=== PATIENT | male | born 1955 | race African-American/Black ===

== ENCOUNTER 2021-06-25 18:40 | Inpatient (IN) | payer MEDICARE ==
[~2021-06-25] VITALS: Ht 172.7 cm; Wt 68.0 kg
[2021-06-25] MEDS ORDERED: MAG HYDROX/AL HYDROX/SIMETH 30 ML ORAL.SUSP PO PRN (20:15)
[2021-06-25] MEDS ORDERED: METHYL SALICYLATE/MENTHOL TOPICAL OINTMENT 57GM TUBE. TP PRN (20:15)
[2021-06-25] MEDS ORDERED: MAGNESIUM HYDROXIDE 2,400 MG/30 ML ORAL.SUSP. PO PRN (20:15)
[2021-06-25 20:29] VITALS: BP 120/83
[2021-06-25] MEDS ORDERED: ALEN70TA71 PO (20:35)
[2021-06-25] MEDS ORDERED: AMLO-186 PO (20:38)
[2021-06-25] MEDS ORDERED: ATOR10TA60 PO (20:50)
[2021-06-25] MEDS ORDERED: CALC-157 PO (20:50)
[2021-06-25] MEDS ORDERED: CARB15DR25 OP (20:50)
[2021-06-25] MEDS ORDERED: BUPR150T21 PO (20:50)
[2021-06-25] MEDS ORDERED: BENZ1TAB5 PO (20:50)
[2021-06-25] MEDS ORDERED: CARB1DRO OP (20:50)
[2021-06-25] MEDS: NICOTINE 14MG PATCH. TD SCH (21:00)
[2021-06-25] MEDS ORDERED: GUAI400T78 PO (21:40)
[2021-06-25] MEDS ORDERED: TRIA15OI32 TP (21:40)
[2021-06-25] MEDS ORDERED: MEMA5TAB PO (21:40)
[2021-06-25] MEDS ORDERED: FLUP1TAB3 PO (21:40)
[2021-06-25] MEDS ORDERED: OMEP40CA7 PO (21:40)
[2021-06-25] MEDS ORDERED: DIVA500T17 PO (21:40)
[2021-06-25] MEDS ORDERED: CETI10TA16 PO (21:40)
[2021-06-25] MEDS ORDERED: MIRT-37 PO (21:40)
[2021-06-25] MEDS ORDERED: TRAZ-120 PO (21:40)
[2021-06-25] MEDS ORDERED: DONE10TA7 PO (21:40)
[2021-06-25] MEDS ORDERED: CYCL10TA19 PO (21:40)
[2021-06-25] MEDS ORDERED: PALI156D IM (21:40)
[2021-06-25] MEDS ORDERED: RISP0.5T62 PO (21:40)
[2021-06-25] MEDS ORDERED: CLOB15OI TP (21:40)
[2021-06-25] MEDS ORDERED: MICO142C TP (21:40)
[2021-06-25 22:06] LABS: ALBUMIN/GLOBULIN RATIO 0.7 (1.0-1.7); ALK PHOS 74 U/L (46-116); ALT (SGPT) 26 U/L (16-63); ANION GAP 7 (6-14); AST (SGOT) 18 U/L (15-37); BASO % 0 % (0-3); BLOOD UREA NITROGEN 9 mg/dL (8-26); BUN/CREATININE RATIO 11 (6-20); CARBON DIOXIDE 29 mmol/L (21-32); CHLORIDE 98 mmol/L (98-107); CREATININE 0.8 mg/dL (0.7-1.3); EOS # 0.1 x10^3/uL (0.0-0.7); EOS % 1 % (0-3); GFR 117.4; GLUCOSE 93 mg/dL (70-99); HEMATOCRIT 39.7 % (39.0-53.0); HEMOGLOBIN 12.7 g/dL (13.0-17.5); LYMPH # 2.8 x10^3/uL (1.0-4.8); LYMPH % 33 % (24-48); MEAN CORPUSCULAR HEMOGLOBIN 28 pg (25-35); MEAN CORPUSCULAR HGB CONC 32 g/dL (31-37); MEAN CORPUSCULAR VOLUME 88 fL (79-100); MONO # 1.1 x10^3/uL (0.0-1.1); MONO % 13 % (0-9); NEUT # 4.5 x10^3uL (1.8-7.7); NEUT % 53 % (31-73); PLATELET COUNT 216 x10^3/uL (140-400); RED BLOOD COUNT 4.52 x10^6/uL (4.30-5.70); RED CELL DISTRIBUTION WIDTH 14.3 % (11.5-14.5); SODIUM 134 mmol/L (136-145); TOTAL BILIRUBIN 0.3 mg/dL (0.2-1.0); TOTAL PROTEIN 7.3 g/dL (6.4-8.2); WHITE BLOOD COUNT 8.5 x10^3/uL (4.0-11.0)
[2021-06-25 22:07] LABS: VAL ACID 30 mcg/mL (50-100)
--- NOTE | 2021-06-25 22:17 | PDOC ---
Exam Note: Bj Note: Please also refer to the separate dictated note~for this date of service dictated separately.~Patient seen individually. Discussed the patient with Nursing staff reviewed the chart.~Reviewed interim history and current functioning. Reviewed vital signs,~Labs/ Radiology~and current medications noted below. Continue current treatment with the changes noted in the dictated addendum note Assessment: Vital Signs/I&O: Vital Signs Date Time Temp Pulse Resp B/P (MAP) Pulse Ox O2 Delivery O2 Flow Rate FiO2 06/25/21 20:29 97.6 83 18 120/83 (95) 98 Labs: Laboratory Tests Test 06/25/21 21:44 White Blood Count 8.5 x10^3/uL (4.0-11.0) Red Blood Count 4.52 x10^6/uL (4.30-5.70) Hemoglobin 12.7 g/dL (13.0-17.5) L Hematocrit 39.7 % (39.0-53.0) Mean Corpuscular Volume 88 fL (79-100) Mean Corpuscular Hemoglobin 28 pg (25-35) Mean Corpuscular Hemoglobin Concent 32 g/dL (31-37) Red Cell Distribution Width 14.3 % (11.5-14.5) Platelet Count 216 x10^3/uL (140-400) Neutrophils (%) (Auto) 53 % (31-73) Lymphocytes (%) (Auto) 33 % (24-48) Monocytes (%) (Auto) 13 % (0-9) H Eosinophils (%) (Auto) 1 % (0-3) Basophils (%) (Auto) 0 % (0-3) Neutrophils # (Auto) 4.5 x10^3uL (1.8-7.7) Lymphocytes # (Auto) 2.8 x10^3/uL (1.0-4.8) Monocytes # (Auto) 1.1 x10^3/uL (0.0-1.1) Eosinophils # (Auto) 0.1 x10^3/uL (0.0-0.7) Basophils # (Auto) 0.0 x10^3/uL (0.0-0.2) D-Dimer (Linda) 0.97 mg/L (0.00-0.50) H Sodium Level 134 mmol/L (136-145) L Potassium Level 4.0 mmol/L (3.5-5.1) Chloride Level 98 mmol/L (98-107) Carbon Dioxide Level 29 mmol/L (21-32) Anion Gap 7 (6-14) Blood Urea Nitrogen 9 mg/dL (8-26) Creatinine 0.8 mg/dL (0.7-1.3) Estimated GFR (Cockcroft-Gault) 117.4 BUN/Creatinine Ratio 11 (6-20) Glucose Level 93 mg/dL (70-99) Calcium Level 9.0 mg/dL (8.5-10.1) Magnesium Level 2.0 mg/dL (1.8-2.4) Total Bilirubin 0.3 mg/dL (0.2-1.0) Aspartate Amino Transferase (AST) 18 U/L (15-37) Alanine Aminotransferase (ALT) 26 U/L (16-63) Alkaline Phosphatase 74 U/L (46-116) Total Protein 7.3 g/dL (6.4-8.2) Albumin 3.0 g/dL (3.4-5.0) L Albumin/Globulin Ratio 0.7 (1.0-1.7) L Valproic Acid Level 30 mcg/mL (50-100) L Valproic Acid Last Dose Date 06/25/2021 Valproic Acid Last Dose Time 2200 Current Medications: I have reviewed the current psychotropics carefully including drug interactions. Risk benefit ratio favors no change other than as noted in my dictated progress note. JOHANNE LEONARDO MD Jun 25, 2021 22:17
[2021-06-26 00:05] LABS: CLARITY,URINE CLEAR; COLOR,URINE YELLOW; GLUCOSE,URINE NEG (NEG)
[2021-06-26 00:06] LABS: BACTERIA,URINE FEW /HPF (0-FEW); NITRITE,URINE NEG (NEG); RBC,URINE 0 /HPF (0-2); SQUAMOUS EPITHELIAL CELL,UR OCC /LPF; UROBILINOGEN,URINE 0.2 mg/dL (0.2 mg/dL)
[2021-06-26 06:23] VITALS: BP 148/56
[2021-06-26] MEDS: buPROPion XL 150 MG TAB.ER.24H PO SCH (08:17)
[2021-06-26] MEDS: NICOTINE 14MG PATCH. TD SCH (08:17)
[2021-06-26] MEDS: MEMANTINE 5 MG TABLET. PO SCH (08:17)
[2021-06-26] MEDS: DONEPEZIL HCL 10 MG TABLET PO SCH (08:17)
[2021-06-26] MEDS: ACETAMINOPHEN 325 MG TABLET PO PRN (09:55)
[2021-06-26 13:10] LABS: THYROXINE 7.2 ug/dL (4.5-12.0)
[2021-06-26] MEDS: ONDANSETRON ODT 4 MG TAB.RAPDIS PO PRN (15:20)
[2021-06-26 15:47] VITALS: BP 124/85
[2021-06-26 17:14] VITALS: BP 124/85
--- NOTE | 2021-06-26 17:20 | RAD ---
EXAMINATION: Bilateral feet radiograph. VIEWS: 4 COMPARISON: None INDICATION:66 years, Male, pain and swelling. FINDINGS: No acute fracture, dislocation or subluxation. Chronic appearing fractures at the base of bilateral f irst distal phalanges. Chronic resorption of the left fifth distal phalanx. Diffuse soft tissue swell ing about the left foot . IMPRESSION: No acute osseous process. Electronically signed by: Marychuy Dominguez MD (06/26/2021 5:18 PM) [id number]
[2021-06-26] MEDS: traZODone 50 MG TABLET. PO SCH (20:47)
[2021-06-26] MEDS: MIRTAZAPINE 15 MG TABLET PO SCH (20:47)
[2021-06-26] MEDS: BENZTROPINE MESYLATE 1 MG TABLET PO SCH (20:50)
[2021-06-26 20:55] LABS: CHOLESTEROL/HDL RATIO 2.1; THYROID STIM HORMONE (TSH) 1.915 uIU/mL (0.358-3.740)
[2021-06-26] MEDS ORDERED: DIVALPROEX ER 500 MG TAB.ER.24H PO SCH (21:00)
--- NOTE | 2021-06-26 22:15 | PDOC ---
Exam Note: Bj Note: Please also refer to the separate dictated note~for this date of service dictated separately.~Patient seen individually. Discussed the patient with Nursing staff reviewed the chart.~Reviewed interim history and current functioning. Reviewed vital signs,~Labs/ Radiology~and current medications noted below. Continue current treatment with the changes noted in the dictated addendum note Assessment: Vital Signs/I&O: Vital Signs Date Time Temp Pulse Resp B/P (MAP) Pulse Ox O2 Delivery O2 Flow Rate FiO2 06/26/21 17:14 97.7 88 18 124/85 (98) 99 06/26/21 15:47 Room Air I & O 06/25/21 06/25/21 06/26/21 15:00 23:00 07:00 Intake Total 560 ml Balance 560 ml Labs: Laboratory Tests Test 06/25/21 23:00 Urine Collection Type Unknown Urine Color Yellow Urine Clarity Clear Urine pH 6.0 Urine Specific [place] 1.015 Urine Protein Neg (NEG-TRACE) Urine Glucose (UA) Neg mg/dL (NEG) Urine Ketones (Stick) Neg mg/dL (NEG) Urine Blood Neg (NEG) Urine Nitrite Neg (NEG) Urine Bilirubin Neg (NEG) Urine Urobilinogen Dipstick 0.2 mg/dL (0.2 mg/dL) Urine Leukocyte Esterase Neg (NEG) Urine RBC 0 /HPF (0-2) Urine WBC 1-4 /HPF (0-4) Urine Squamous Epithelial Cells Occ /LPF Urine Bacteria Few /HPF (0-FEW) Current Medications: Meds: Laboratory Tests Test 06/25/21 23:00 Urine Collection Type Unknown Urine Color Yellow Urine Clarity Clear Urine pH 6.0 Urine Specific [place] 1.015 Urine Protein Neg Urine Glucose (UA) Neg mg/dL Urine Ketones (Stick) Neg mg/dL Urine Blood Neg Urine Nitrite Neg Urine Bilirubin Neg Urine Urobilinogen Dipstick 0.2 mg/dL Urine Leukocyte Esterase Neg Urine RBC 0 /HPF Urine WBC 1-4 /HPF Urine Squamous Epithelial Cells Occ /LPF Urine Bacteria Few /HPF Current Medications Medications (Trade) Dose Ordered Sig/Reny Route PRN Reason Start Time Stop Time Status Last Admin Dose Admin Acetaminophen (Tylenol) 650 mg PRN Q6HRS PRN PO MILD PAIN / TEMP > 100.3'F 06/25/21 20:15 06/26/21 09:55 Multi-Ingredient Ointment (Analgesic [place]) 1 mikhail PRN QID PRN TP MUSCLE PAIN 06/25/21 20:15 Al Hydroxide/Mg Hydroxide (Mylanta Plus Xs) 15 ml PRN AFTMEALHC PRN PO DYSPEPSIA 06/25/21 20:15 Magnesium Hydroxide (Milk Of Magnesia) 2,400 mg PRN QHS PRN PO CONSTIPATION 06/25/21 20:15 Nicotine (Nicoderm Cq 14mg Patch) 1 patch DAILY TD 06/25/21 21:00 06/26/21 08:17 Benztropine Mesylate (Cogentin) 1 mg BID PO 06/26/21 22:00 06/26/21 20:50 Bupropion HCl (Wellbutrin Xl) 150 mg DAILY PO 06/26/21 09:00 06/26/21 08:17 Divalproex Sodium (Depakote Er) 500 mg HS PO 06/26/21 21:00 06/26/21 20:47 Donepezil HCl (Aricept) 10 mg DAILY PO 06/26/21 09:00 06/26/21 08:17 Memantine (Namenda) 5 mg DAILY PO 06/26/21 09:00 06/26/21 08:17 Mirtazapine (Remeron) 7.5 mg QHS PO 06/26/21 21:00 06/26/21 20:47 Paliperidone Palmitate (Invega Sustenna) 156 mg QMONTH IM 07/25/21 09:00 UNV Risperidone (RisperDAL) 0.25 mg PRN DAILY PRN PO agitation 06/25/21 22:00 Trazodone HCl (Desyrel) 50 mg QHS PO 06/26/21 21:00 06/26/21 20:47 Fluphenazine HCl (Prolixin Oral Conc) 1 mg PRN BID PRN PO psychosis 06/25/21 22:15 Ondansetron HCl (Zofran Odt) 4 mg PRN Q6HRS PRN PO NAUSEA/VOMITING 06/26/21 14:00 06/26/21 15:20 Current Medications Medications (Trade) Dose Ordered Sig/Reny Route PRN Reason Start Time Stop Time Status Last Admin Dose Admin Benztropine Mesylate (Cogentin) 1 mg BID PO 3/31/22 22:00 06/26/21 20:50 Bupropion HCl (Wellbutrin Xl) 150 mg DAILY PO 06/26/21 09:00 06/26/21 08:17 Divalproex Sodium (Depakote Er) 500 mg HS PO 06/26/21 21:00 06/26/21 20:47 Donepezil HCl (Aricept) 10 mg DAILY PO 06/26/21 09:00 06/26/21 08:17 Memantine (Namenda) 5 mg DAILY PO 06/26/21 09:00 06/26/21 08:17 Mirtazapine (Remeron) 7.5 mg QHS PO 06/26/21 21:00 06/26/21 20:47 Trazodone HCl (Desyrel) 50 mg QHS PO 06/26/21 21:00 06/26/21 20:47 Ondansetron HCl (Zofran Odt) 4 mg PRN Q6HRS PRN PO NAUSEA/VOMITING 06/26/21 14:00 06/26/21 15:20 I have reviewed the current psychotropics carefully including drug interactions. Risk benefit ratio favors no change other than as noted in my dictated progress note. JOHANNE LEONARDO MD Jun 26, 2021 22:14
[2021-06-27 00:16] LABS: HEMOGLOBIN A1C 5.8 % (4.8-5.6)
--- NOTE | 2021-06-27 03:19 | CONS ---
DATE OF CONSULTATION: 06/26/2021 ATTENDING PHYSICIAN: Dr. Leonardo, Dr. Guerrier. We are asked to see this patient for medical consultation. HISTORY OF PRESENT ILLNESS: The patient is 66. He has a longstanding history of schizoaffective disorder. He lives in a facility in [place], [place]. He goes to the [facility]. He was sent here from the ID system with significant dementia, schizoaffective disorder, very hard of hearing. He has had a history of seizures, hypertension, COPD, supposedly syphilis neuropathy. He is followed at the [facility]. His main complaint today, he is complaining of pain in his left foot. He is very simplistic and hard of hearing. I suspect he is mentally challenged. CURRENT MEDICATIONS: Reviewed. ALLERGIES: He has no known drug allergies. He was on scheduled alendronate, amlodipine, Lipitor, benztropine, bupropion, calcium carbonate, carboxymethylcellulose eyedrops, cetirizine, topical steroids, clobetasol, Flexeril p.r.n., Depakote, Aricept, fluphenazine, guaifenesin, Namenda, miconazole, Remeron, omeprazole, Invega, risperidone, trazodone, and triamcinolone. SOCIAL HISTORY: He was a smoker in the past. No current alcohol use. FAMILY HISTORY: Unobtainable. REVIEW OF SYSTEMS: He is very simplistic in his thought process. He is very hard of hearing, has trouble communicating. He has complained of feeling nauseated, very vague symptoms. He has complained of pain in both feet, worse in the left foot. No recent history of trauma. All other systems reviewed and turned to be negative. PHYSICAL EXAMINATION: GENERAL: When I saw him, this is a pleasant, middle-aged gentleman, in no acute distress. VITAL SIGNS: Initial vital signs showed a blood pressure of 120/83 mmHg. His pulse is 83 and regular, temperature 97.6 degrees Fahrenheit and his oxygen saturations are 98% on room air. HEENT: Head is without trauma. Pupils are reactive. Sclerae are nonicteric. The oropharynx is clear. NECK: Supple, no bruits. LUNGS: Good breath sounds. CARDIOVASCULAR: Showed regular heart tones. No gallop. ABDOMEN: Soft. EXTREMITIES: Without edema. NEUROLOGIC: Focally intact. Speech is fluent, very hard of hearing. PERTINENT LABORATORY STUDIES: His hemoglobin is 12.7 grams/dL, white count is 8500. Chemistry panel showed a sodium 134 mEq, potassium 4.0, and creatinine 0.8 mg/dL. Transaminases are normal. Urinalysis was unremarkable. ASSESSMENT: 1. This 66-year-old gentleman has schizoaffective disorder. 2. Underlying dementia with behavioral issues. 3. He is mentally challenged based on my exam. 4. Presbycusis, very hard of hearing. 5. Underlying schizoaffective disorder. 6. Degenerative arthritis of both feet. RECOMMENDATIONS: 1. Because of these symptoms are complained, I would recommend getting plain films of both feet just to document a baseline. I do not believe any fractures are identified. There are no findings of trauma. 2. I have reviewed his home meds and these should be continued at the same dosage. 3. He is stable from a medical standpoint. Thank you again for asking me to see this patient for medical consultation. We shall gladly follow along during his inpatient stay. JESSICA/NICKIE DR: JESSICA/domenico TID: [id number] CC: JOHANNE LEONARDO MD
[2021-06-27 06:32] VITALS: BP 150/94
[2021-06-27] MEDS: buPROPion XL 150 MG TAB.ER.24H PO SCH (09:18)
[2021-06-27] MEDS: MEMANTINE 5 MG TABLET. PO SCH (09:18)
[2021-06-27] MEDS: DONEPEZIL HCL 10 MG TABLET PO SCH (09:18)
[2021-06-27] MEDS: BENZTROPINE MESYLATE 1 MG TABLET PO SCH ×2 (09:18→21:17)
[2021-06-27] MEDS: NICOTINE 14MG PATCH. TD SCH (09:19)
[2021-06-27] MEDS: ACETAMINOPHEN 325 MG TABLET PO PRN (10:00)
[2021-06-27] MEDS ORDERED: TRIAMCINOLONE ACETONIDE 0.1% TOPICAL OINTMENT 15GM TUBE. TP PRN (10:45)
[2021-06-27] MEDS ORDERED: CARBOXYMETHYLCELLULOSE SODIUM OP SCH (13:00)
--- NOTE | 2021-06-27 13:19 | HP ---
DATE OF SERVICE: 06/27/2021 ADMIT DATE: 06/25/2021 PSYCHIATRIC ADMISSION HISTORY/EVALUATION IDENTIFYING DATA: The patient is a 66-year-old -Russian male referred to us from [facility] via the [facility] where he presented from the care home for increasing aggression with peers, increased confusion, acute mental status changes, paranoia, combative with staff and peers. He was hitting angry, attempting to elope, delusional about having AIDS, making verbal threats to staff members. He is quite hard of hearing and this lack of communication/impaired communication worsens his impulsivity, aggression. He had failed outpatient psychiatric interventions. I discussed with Jeri Foster, in school suspension coordinator and nursing staff, and reviewed current and past records and information from the [facility]. I met with him evening of 06/26. CHIEF COMPLAINT: "I came here yesterday. Yes, I get upset." The patient was extremely hard of hearing, I had to talk extremely loudly. He was getting frustrated with communication problems. HISTORY OF PRESENT ILLNESS: Reportedly, the patient has a long history of schizoaffective disorder, bipolar type. He is on Invega Sustenna 156 mg IM monthly, in addition to Risperdal. He has been at the above care home for some time, recently getting more paranoid with marked mood lability, agitation and aggression, disruptive behaviors. No active suicidal or homicidal ideation. PAST PSYCHIATRIC HISTORY: As above. MEDICAL HISTORY: Hard of hearing, obesity, seizure disorder, hypertension, status post COPD, obstructive sleep apnea, chronic constipation, GERD, status post CVA, peripheral vascular disease, syphilis, positive neuropathy and he is a current smoker. ALLERGIES: Negative. CODE STATUS: DNR. ACCU-CHEKS: None. DIET: Regular. Takes medications whole. Ambulates independently. CURRENT PSYCHOTROPICS: Cogentin 1 mg b.i.d., Aricept 10 mg a day, Prolixin 1 mg b.i.d. p.r.n., Invega Sustenna 156 mg monthly, Remeron 7.5 mg at bedtime, Risperdal 0.25 mg daily p.r.n., trazodone 50 mg at bedtime, Namenda 5 mg a day and Wellbutrin-XL 150 mg a day. FAMILY HISTORY: Noncontributory. SOCIAL HISTORY: No alcohol, drug abuse, physical, sexual, elder abuse history is noted. He is not known to be a perpetrator. REACTION TO HOSPITALIZATION: The patient accepting of it. MENTAL STATUS EXAM: The patient is awake, alert, oriented. He knew it was 06/26/2021. He knew he was admitted the day before, but did not know the name of the current president or the one before him. I had to talk very loudly to communicate with him. Speech is coherent. Abstraction fair. Computation impaired. Language function intact. Attention span short. Mood and affect remains labile, somewhat paranoid and distractable. LABORATORY DATA: Reviewed. IMPRESSION: Schizoaffective disorder, bipolar type, mixed, with psychotic features; mild cognitive impairment versus dementia, Alzheimer, vascular with delusion; depression, impulse control disorder and anxiety disorder, unspecified. Rest as above. PLAN: Admit to Geropsychiatry unit at [facility]. I will see the patient daily individually from a psychiatric standpoint, medical followup with Dr. Ann/Dr. Guerrier. Continue the patient on current psychotropics, start Depakote as a mood stabilizer, adjust to reach therapeutic level. Follow labs as we do this. ESTIMATED LENGTH OF STAY: 10-12 days. DISPOSITION PLANS: Back to care home when stable. ROBERTA/NICANOR DR: Donis TID: [id number]
[2021-06-27 16:10] VITALS: BP 150/92
[2021-06-27] MEDS ORDERED: CLOBETASOL EMOLLIENT 0.05% TOPICAL CREAM 15GM TUBE. TP PRN (21:00)
[2021-06-27] MEDS: traZODone 50 MG TABLET. PO SCH (21:17)
[2021-06-27] MEDS: MIRTAZAPINE 15 MG TABLET PO SCH (21:17)
[2021-06-27] MEDS: ATORVASTATIN CALCIUM 10 MG TABLET. PO SCH (21:17)
[2021-06-27] MEDS: DIVALPROEX ER 500 MG TAB.ER.24H PO SCH (21:18)
--- NOTE | 2021-06-27 22:20 | PDOC ---
Exam Note: Bj Note: Please also refer to the separate dictated note~for this date of service dictated separately.~Patient seen individually. Discussed the patient with Nursing staff reviewed the chart.~Reviewed interim history and current functioning. Reviewed vital signs,~Labs/ Radiology~and current medications noted below. Continue current treatment with the changes noted in the dictated addendum note Assessment: Vital Signs/I&O: Vital Signs Date Time Temp Pulse Resp B/P (MAP) Pulse Ox O2 Delivery O2 Flow Rate FiO2 06/27/21 16:10 97.4 83 20 150/92 (111) 99 06/27/21 06:32 Room Air I & O 06/26/21 06/26/21 06/27/21 15:00 23:00 07:00 Intake Total 960 ml 960 ml Balance 960 ml 960 ml Current Medications: Meds: Current Medications Medications (Trade) Dose Ordered Sig/Reny Route PRN Reason Start Time Stop Time Status Last Admin Dose Admin Acetaminophen (Tylenol) 650 mg PRN Q6HRS PRN PO MILD PAIN / TEMP > 100.3'F 06/25/21 20:15 06/27/21 10:00 Multi-Ingredient Ointment (Analgesic [place]) 1 mikhail PRN QID PRN TP MUSCLE PAIN 06/25/21 20:15 Al Hydroxide/Mg Hydroxide (Mylanta Plus Xs) 15 ml PRN AFTMEALHC PRN PO DYSPEPSIA 06/25/21 20:15 Magnesium Hydroxide (Milk Of Magnesia) 2,400 mg PRN QHS PRN PO CONSTIPATION 06/25/21 20:15 Nicotine (Nicoderm Cq 14mg Patch) 1 patch DAILY TD 06/25/21 21:00 06/27/21 09:19 Benztropine Mesylate (Cogentin) 1 mg BID PO 06/26/21 22:00 06/27/21 21:17 Bupropion HCl (Wellbutrin Xl) 150 mg DAILY PO 06/26/21 09:00 06/27/21 09:18 Divalproex Sodium (Depakote Er) 500 mg HS PO 06/26/21 21:00 06/27/21 18:00 DC 06/26/21 20:47 Donepezil HCl (Aricept) 10 mg DAILY PO 06/26/21 09:00 06/27/21 09:18 Memantine (Namenda) 5 mg DAILY PO 06/26/21 09:00 06/27/21 09:18 Mirtazapine (Remeron) 7.5 mg QHS PO 06/26/21 21:00 06/27/21 21:17 Paliperidone Palmitate (Invega Sustenna) 156 mg QMONTH IM 07/25/21 09:00 Risperidone (RisperDAL) 0.25 mg PRN DAILY PRN PO agitation 06/25/21 22:00 Trazodone HCl (Desyrel) 50 mg QHS PO 06/26/21 21:00 06/27/21 21:17 Fluphenazine HCl (Prolixin Oral Conc) 1 mg PRN BID PRN PO psychosis 06/25/21 22:15 Ondansetron HCl (Zofran Odt) 4 mg PRN Q6HRS PRN PO NAUSEA/VOMITING 06/26/21 14:00 06/26/21 15:20 Amlodipine Besylate (Norvasc) 2.5 mg DAILY PO 06/28/21 09:00 Atorvastatin Calcium (Lipitor) 10 mg QHS PO 06/27/21 21:00 06/27/21 21:17 Triamcinolone Acetonide (Kenalog) 1 mikhail PRN DAILY PRN TP rash in armpits 06/27/21 10:45 Artificial Tears (Refresh Classic) 1 drop QIDPRN PRN OU DRY EYE 06/27/21 11:00 Non-Formulary Medication (Carboxymethylcellulose Sodium (Lubricant Eye Drops)) 15 ml QID OP 06/27/21 13:00 06/27/21 10:50 DC Clobetasol Propionate 1 mikhail PRN BID PRN TP RASH 06/27/21 21:00 Pantoprazole Sodium (Protonix) 40 mg DAILY07 PO 06/28/21 07:00 Divalproex Sodium (Depakote Er) 1,000 mg HS PO 06/27/21 21:00 06/27/21 21:18 Current Medications Medications (Trade) Dose Ordered Sig/Reny Route PRN Reason Start Time Stop Time Status Last Admin Dose Admin Atorvastatin Calcium (Lipitor) 10 mg QHS PO 06/27/21 21:00 06/27/21 21:17 Divalproex Sodium (Depakote Er) 1,000 mg HS PO 06/27/21 21:00 06/27/21 21:18 I have reviewed the current psychotropics carefully including drug interactions. Risk benefit ratio favors no change other than as noted in my dictated progress note. Diagnosis: Problems: (1) Schizoaffective disorder, bipolar type (2) Bipolar disorder, current episode mixed, severe, with psychotic features (3) Anxiety disorder, unspecified (4) Impulse control disorder, unspecified JOHANNE LEONARDO MD Jun 27, 2021 22:20
[2021-06-28 06:19] VITALS: BP 119/81
[2021-06-28] MEDS: MEMANTINE 5 MG TABLET. PO SCH (07:58)
[2021-06-28] MEDS: DONEPEZIL HCL 10 MG TABLET PO SCH (07:58)
[2021-06-28] MEDS: PANTOPRAZOLE 40 MG TABLET. PO SCH (07:58)
[2021-06-28] MEDS: buPROPion XL 150 MG TAB.ER.24H PO SCH (07:58)
[2021-06-28] MEDS: BENZTROPINE MESYLATE 1 MG TABLET PO SCH ×2 (07:59→20:37)
[2021-06-28] MEDS: amLODIPine BESYLATE 5 MG TABLET PO SCH (07:59)
[2021-06-28] MEDS: NICOTINE 14MG PATCH. TD SCH (08:00)
[2021-06-28] MEDS: POLYVINYL ALCOHOL/POVIDONE/PF OPHTH SOLUTION DROPERETTE. OU PRN (08:00)
--- NOTE | 2021-06-28 09:20 | PDOC ---
Exam Note: Bj Note: This note is a late entry for 06/26/2021 covers elements not covered in my initial note. Subjective: The patient was reviewed at treatment team meeting individually in the morning on 06/26/2021 with Yuliana Cespedes, Jeri Zuniga, and Onelia Fortune (social services director), Susi, activity therapy, and Jerome SUAZO, discussed and reviewed the chart. Discussed her diagnoses, progress at length. The patient slept 5-1/2 hours previous night. Appetite 100%. He is extremely hard of hearing. Rest please refer to my admission note for details. Assessment: Vital Signs/I&O: Vital Signs Date Time Temp Pulse Resp B/P (MAP) Pulse Ox O2 Delivery O2 Flow Rate FiO2 06/28/21 07:59 86 119/81 06/28/21 06:19 98.6 18 98 06/27/21 06:32 Room Air I & O 06/27/21 06/27/21 06/28/21 15:00 23:00 07:00 Intake Total 720 ml 480 ml Balance 720 ml 480 ml Current Medications: Meds: Current Medications Medications (Trade) Dose Ordered Sig/Reny Route PRN Reason Start Time Stop Time Status Last Admin Dose Admin Amlodipine Besylate (Norvasc) 2.5 mg DAILY PO 06/28/21 09:00 06/28/21 07:59 Atorvastatin Calcium (Lipitor) 10 mg QHS PO 06/27/21 21:00 06/27/21 21:17 Artificial Tears (Refresh Classic) 1 drop QIDPRN PRN OU DRY EYE 06/27/21 11:00 06/28/21 08:00 Pantoprazole Sodium (Protonix) 40 mg DAILY07 PO 06/28/21 07:00 06/28/21 07:58 Divalproex Sodium (Depakote Er) 1,000 mg HS PO 06/27/21 21:00 06/27/21 21:18 I have reviewed the current psychotropics carefully including drug interactions. Risk benefit ratio favors no change other than as noted in my dictated progress note. Diagnosis: Problems: (1) Schizoaffective disorder, bipolar type (2) Impulse control disorder, unspecified (3) Anxiety disorder, unspecified (4) Bipolar disorder, current episode mixed, severe, with psychotic features JOHANNE LEONARDO MD Jun 28, 2021 09:20
[2021-06-28 15:57] VITALS: BP 112/75
[2021-06-28] MEDS: traZODone 50 MG TABLET. PO SCH (20:37)
[2021-06-28] MEDS: DIVALPROEX ER 500 MG TAB.ER.24H PO SCH (20:37)
[2021-06-28] MEDS: MIRTAZAPINE 15 MG TABLET PO SCH (20:37)
[2021-06-28] MEDS: ATORVASTATIN CALCIUM 10 MG TABLET. PO SCH (20:37)
--- NOTE | 2021-06-28 22:03 | PDOC ---
Exam Note: Bj Note: Please also refer to the separate dictated note~for this date of service dictated separately.~Patient seen individually. Discussed the patient with Nursing staff reviewed the chart.~Reviewed interim history and current functioning. Reviewed vital signs,~Labs/ Radiology~and current medications noted below. Continue current treatment with the changes noted in the dictated addendum note Assessment: Vital Signs/I&O: Vital Signs Date Time Temp Pulse Resp B/P (MAP) Pulse Ox O2 Delivery O2 Flow Rate FiO2 06/28/21 15:57 97.6 86 16 112/75 (87) 100 06/27/21 06:32 Room Air I & O 06/27/21 06/27/21 06/28/21 15:00 23:00 07:00 Intake Total 720 ml 480 ml Balance 720 ml 480 ml Labs: Laboratory Tests Test 06/28/21 08:17 SARS-CoV-2 (PCR) Not detected (NOT DETECTD) Current Medications: Meds: Laboratory Tests Test 06/28/21 08:17 Coronavirus (COVID-19)(PCR) Not detected Current Medications Medications (Trade) Dose Ordered Sig/Reny Route PRN Reason Start Time Stop Time Status Last Admin Dose Admin Acetaminophen (Tylenol) 650 mg PRN Q6HRS PRN PO MILD PAIN / TEMP > 100.3'F 06/25/21 20:15 06/27/21 10:00 Multi-Ingredient Ointment (Analgesic [place]) 1 mikhail PRN QID PRN TP MUSCLE PAIN 06/25/21 20:15 Al Hydroxide/Mg Hydroxide (Mylanta Plus Xs) 15 ml PRN AFTMEALHC PRN PO DYSPEPSIA 06/25/21 20:15 Magnesium Hydroxide (Milk Of Magnesia) 2,400 mg PRN QHS PRN PO CONSTIPATION 06/25/21 20:15 Nicotine (Nicoderm Cq 14mg Patch) 1 patch DAILY TD 06/25/21 21:00 06/28/21 08:00 Benztropine Mesylate (Cogentin) 1 mg BID PO 06/26/21 22:00 06/28/21 20:37 Bupropion HCl (Wellbutrin Xl) 150 mg DAILY PO 06/26/21 09:00 06/28/21 07:58 Divalproex Sodium (Depakote Er) 500 mg HS PO 06/26/21 21:00 06/27/21 18:00 DC 06/26/21 20:47 Donepezil HCl (Aricept) 10 mg DAILY PO 06/26/21 09:00 06/28/21 07:58 Memantine (Namenda) 5 mg DAILY PO 06/26/21 09:00 06/28/21 07:58 Mirtazapine (Remeron) 7.5 mg QHS PO 06/26/21 21:00 06/28/21 20:37 Paliperidone Palmitate (Invega Sustenna) 156 mg QMONTH IM 07/25/21 09:00 Risperidone (RisperDAL) 0.25 mg PRN DAILY PRN PO agitation 06/25/21 22:00 Trazodone HCl (Desyrel) 50 mg QHS PO 06/26/21 21:00 06/28/21 20:37 Fluphenazine HCl (Prolixin Oral Conc) 1 mg PRN BID PRN PO psychosis 06/25/21 22:15 Ondansetron HCl (Zofran Odt) 4 mg PRN Q6HRS PRN PO NAUSEA/VOMITING 06/26/21 14:00 06/26/21 15:20 Amlodipine Besylate (Norvasc) 2.5 mg DAILY PO 06/28/21 09:00 06/28/21 07:59 Atorvastatin Calcium (Lipitor) 10 mg QHS PO 06/27/21 21:00 06/28/21 20:37 Triamcinolone Acetonide (Kenalog) 1 mikhail PRN DAILY PRN TP rash in armpits 06/27/21 10:45 Artificial Tears (Refresh Classic) 1 drop QIDPRN PRN OU DRY EYE 06/27/21 11:00 06/28/21 08:00 Non-Formulary Medication (Carboxymethylcellulose Sodium (Lubricant Eye Drops)) 15 ml QID OP 06/27/21 13:00 06/27/21 10:50 DC Clobetasol Propionate 1 mikhail PRN BID PRN TP RASH 06/27/21 21:00 Pantoprazole Sodium (Protonix) 40 mg DAILY07 PO 06/28/21 07:00 06/28/21 07:58 Divalproex Sodium (Depakote Er) 1,000 mg HS PO 06/27/21 21:00 06/28/21 20:37 Penicillin G Benzathine (Bicillin L-A) 2,400,000 unit WEEKLY IM 06/29/21 09:00 07/13/21 09:01 Current Medications Medications (Trade) Dose Ordered Sig/Reny Route PRN Reason Start Time Stop Time Status Last Admin Dose Admin Amlodipine Besylate (Norvasc) 2.5 mg DAILY PO 06/28/21 09:00 06/28/21 07:59 Pantoprazole Sodium (Protonix) 40 mg DAILY07 PO 06/28/21 07:00 06/28/21 07:58 I have reviewed the current psychotropics carefully including drug interactions. Risk benefit ratio favors no change other than as noted in my dictated progress note. Diagnosis: Problems: (1) Schizoaffective disorder, bipolar type (2) Impulse control disorder, unspecified (3) Anxiety disorder, unspecified (4) Bipolar disorder, current episode mixed, severe, with psychotic features JOHANNE LEONARDO MD Jun 28, 2021 22:03
--- NOTE | 2021-06-28 23:18 | PDOC ---
Exam Note: Bj Note: This note is a late entry for 06/27/2021 covers elements not covered in my initial note. Subjective: The patient was seen individually on 06/27/2021, discussed and reviewed the chart with Kirsten SUAZO. The patient slept 6-3/4 hours previous night. Overall patient is quite anxious, med seeking. He complains of headache and nausea. Valproic acid level is 30 in Depakote ER 500 mg h.s. We will increase to 1000 mg h.s. Check labs, CBC, CMP, valproic acid level in 3 days. He has been quite obsessed about his AIDs status and we addressed with him. I met with him in the hallway outside his room. Review of Systems: Hard of hearing. No CV, , pulmonary, eye system symptoms on review. Reliability poor. Mental Status Exam: Patient is oriented to himself and situation. Speech has some latency, coherent. Often response is monosyllabic. Abstraction fair. Computation impaired. Language function intact. Mood and affect withdrawn. Laboratory Data: Reviewed. Impression: Schizoaffective disorder, bipolar type, mixed with psychotic features. Mild cognitive impairment versus major neurocognitive disorder, unspecified. Anxiety disorder unspecified. Impulse control disorder unspecified. Plan: Increase Depakote as noted above. Maintain Risperdal and rest of the psychotropics unchanged. Reviewed drug interactions, risk-benefit ratio. Adjust further as clinically indicated. Assessment: Vital Signs/I&O: Vital Signs Date Time Temp Pulse Resp B/P (MAP) Pulse Ox O2 Delivery O2 Flow Rate FiO2 06/28/21 15:57 97.6 86 16 112/75 (87) 100 06/27/21 06:32 Room Air I & O 06/27/21 06/27/21 06/28/21 15:00 23:00 07:00 Intake Total 720 ml 480 ml Balance 720 ml 480 ml Labs: Laboratory Tests Test 06/28/21 08:17 SARS-CoV-2 (PCR) Not detected (NOT DETECTD) Current Medications: Meds: Current Medications Medications (Trade) Dose Ordered Sig/Reny Route PRN Reason Start Time Stop Time Status Last Admin Dose Admin Amlodipine Besylate (Norvasc) 2.5 mg DAILY PO 06/28/21 09:00 06/28/21 07:59 Pantoprazole Sodium (Protonix) 40 mg DAILY07 PO 06/28/21 07:00 06/28/21 07:58 I have reviewed the current psychotropics carefully including drug interactions. Risk benefit ratio favors no change other than as noted in my dictated progress note. Diagnosis: Problems: (1) Major neurocognitive disorder (2) Schizoaffective disorder, bipolar type (3) Impulse control disorder, unspecified (4) Anxiety disorder, unspecified (5) Bipolar disorder, current episode mixed, severe, with psychotic features JOHANNE LEONARDO MD Jun 28, 2021 23:17
[2021-06-29 06:49] VITALS: BP 155/89
[2021-06-29] MEDS: DONEPEZIL HCL 10 MG TABLET PO SCH (07:53)
[2021-06-29] MEDS: buPROPion XL 150 MG TAB.ER.24H PO SCH (07:53)
[2021-06-29] MEDS: amLODIPine BESYLATE 5 MG TABLET PO SCH (07:54)
[2021-06-29] MEDS: MEMANTINE 5 MG TABLET. PO SCH (07:54)
[2021-06-29] MEDS: BENZTROPINE MESYLATE 1 MG TABLET PO SCH ×2 (07:54→20:20)
[2021-06-29] MEDS: PANTOPRAZOLE 40 MG TABLET. PO SCH (07:54)
[2021-06-29] MEDS: NICOTINE 14MG PATCH. TD SCH (07:55)
[2021-06-29] MEDS: PENICILLIN G BENZATHINE LA 1,200,000 UNIT/2 ML DISP.SYRIN. IM SCH (09:02)
[2021-06-29 15:59] VITALS: BP 144/96
[2021-06-29] MEDS: POLYVINYL ALCOHOL/POVIDONE/PF OPHTH SOLUTION DROPERETTE. OU PRN (17:56)
[2021-06-29] MEDS: ATORVASTATIN CALCIUM 10 MG TABLET. PO SCH (20:20)
[2021-06-29] MEDS: traZODone 50 MG TABLET. PO SCH (20:20)
[2021-06-29] MEDS: DIVALPROEX ER 500 MG TAB.ER.24H PO SCH (20:20)
[2021-06-29] MEDS: MIRTAZAPINE 15 MG TABLET PO SCH (20:21)
--- NOTE | 2021-06-29 22:04 | PDOC ---
Exam Note: Bj Note: Please also refer to the separate dictated note~for this date of service dictated separately.~Patient seen individually. Discussed the patient with Nursing staff reviewed the chart.~Reviewed interim history and current functioning. Reviewed vital signs,~Labs/ Radiology~and current medications noted below. Continue current treatment with the changes noted in the dictated addendum note Assessment: Vital Signs/I&O: Vital Signs Date Time Temp Pulse Resp B/P (MAP) Pulse Ox O2 Delivery O2 Flow Rate FiO2 06/29/21 15:59 98.5 88 16 144/96 (112) 100 06/29/21 06:49 Room Air I & O 06/28/21 06/28/21 06/29/21 15:00 23:00 07:00 Intake Total 720 ml 120 ml Balance 720 ml 120 ml Current Medications: Meds: Current Medications Medications (Trade) Dose Ordered Sig/Reny Route PRN Reason Start Time Stop Time Status Last Admin Dose Admin Acetaminophen (Tylenol) 650 mg PRN Q6HRS PRN PO MILD PAIN / TEMP > 100.3'F 06/25/21 20:15 06/27/21 10:00 Multi-Ingredient Ointment (Analgesic [place]) 1 mikhail PRN QID PRN TP MUSCLE PAIN 06/25/21 20:15 Al Hydroxide/Mg Hydroxide (Mylanta Plus Xs) 15 ml PRN AFTMEALHC PRN PO DYSPEPSIA 06/25/21 20:15 Magnesium Hydroxide (Milk Of Magnesia) 2,400 mg PRN QHS PRN PO CONSTIPATION 06/25/21 20:15 Nicotine (Nicoderm Cq 14mg Patch) 1 patch DAILY TD 06/25/21 21:00 06/29/21 07:55 Benztropine Mesylate (Cogentin) 1 mg BID PO 06/26/21 22:00 06/29/21 20:20 Bupropion HCl (Wellbutrin Xl) 150 mg DAILY PO 06/26/21 09:00 06/29/21 07:53 Divalproex Sodium (Depakote Er) 500 mg HS PO 06/26/21 21:00 06/27/21 18:00 DC 06/26/21 20:47 Donepezil HCl (Aricept) 10 mg DAILY PO 06/26/21 09:00 06/29/21 07:53 Memantine (Namenda) 5 mg DAILY PO 06/26/21 09:00 06/29/21 07:54 Mirtazapine (Remeron) 7.5 mg QHS PO 06/26/21 21:00 06/29/21 20:21 Paliperidone Palmitate (Invega Sustenna) 156 mg QMONTH IM 07/25/21 09:00 Risperidone (RisperDAL) 0.25 mg PRN DAILY PRN PO agitation 06/25/21 22:00 Trazodone HCl (Desyrel) 50 mg QHS PO 06/26/21 21:00 06/29/21 20:20 Fluphenazine HCl (Prolixin Oral Conc) 1 mg PRN BID PRN PO psychosis 06/25/21 22:15 Ondansetron HCl (Zofran Odt) 4 mg PRN Q6HRS PRN PO NAUSEA/VOMITING 06/26/21 14:00 06/26/21 15:20 Amlodipine Besylate (Norvasc) 2.5 mg DAILY PO 06/28/21 09:00 06/29/21 07:54 Atorvastatin Calcium (Lipitor) 10 mg QHS PO 06/27/21 21:00 06/29/21 20:20 Triamcinolone Acetonide (Kenalog) 1 mikhail PRN DAILY PRN TP rash in armpits 06/27/21 10:45 Artificial Tears (Refresh Classic) 1 drop QIDPRN PRN OU DRY EYE 06/27/21 11:00 06/29/21 17:56 Non-Formulary Medication (Carboxymethylcellulose Sodium (Lubricant Eye Drops)) 15 ml QID OP 06/27/21 13:00 06/27/21 10:50 DC Clobetasol Propionate 1 mikhail PRN BID PRN TP RASH 06/27/21 21:00 06/29/21 07:50 DC Pantoprazole Sodium (Protonix) 40 mg DAILY07 PO 06/28/21 07:00 06/29/21 07:54 Divalproex Sodium (Depakote Er) 1,000 mg HS PO 06/27/21 21:00 06/29/21 20:20 Penicillin G Benzathine (Bicillin L-A) 2,400,000 unit WEEKLY IM 06/29/21 09:00 07/13/21 09:01 06/29/21 09:02 Current Medications Medications (Trade) Dose Ordered Sig/Reny Route PRN Reason Start Time Stop Time Status Last Admin Dose Admin Penicillin G Benzathine (Bicillin L-A) 2,400,000 unit WEEKLY IM 06/29/21 09:00 07/13/21 09:01 06/29/21 09:02 I have reviewed the current psychotropics carefully including drug interactions. Risk benefit ratio favors no change other than as noted in my dictated progress note. Diagnosis: Problems: (1) Schizoaffective disorder, bipolar type (2) Impulse control disorder, unspecified (3) Anxiety disorder, unspecified (4) Bipolar disorder, current episode mixed, severe, with psychotic features (5) Major neurocognitive disorder JOHANNE LEONARDO MD Jun 29, 2021 22:04
[2021-06-30 06:05] VITALS: BP 127/84
[2021-06-30 07:54] LABS: BASO % 0 % (0-3); EOS % 1 % (0-3); HEMATOCRIT 39.5 % (39.0-53.0); HEMOGLOBIN 12.7 g/dL (13.0-17.5); LYMPH % 40 % (24-48); MEAN CORPUSCULAR HEMOGLOBIN 28 pg (25-35); MEAN CORPUSCULAR HGB CONC 32 g/dL (31-37); MEAN CORPUSCULAR VOLUME 88 fL (79-100); MONO % 14 % (0-9); NEUT # 3.4 x10^3uL (1.8-7.7); NEUT % 45 % (31-73); PLATELET COUNT 209 x10^3/uL (140-400); RED BLOOD COUNT 4.51 x10^6/uL (4.30-5.70); RED CELL DISTRIBUTION WIDTH 14.4 % (11.5-14.5); WHITE BLOOD COUNT 7.5 x10^3/uL (4.0-11.0)
[2021-06-30 07:58] LABS: ALBUMIN 3.2 g/dL (3.4-5.0); ALBUMIN/GLOBULIN RATIO 0.8 (1.0-1.7); ALK PHOS 82 U/L (46-116); ALT (SGPT) 26 U/L (16-63); ANION GAP 10 (6-14); AST (SGOT) 12 U/L (15-37); BLOOD UREA NITROGEN 12 mg/dL (8-26); BUN/CREATININE RATIO 17 (6-20); CALCIUM 8.9 mg/dL (8.5-10.1); CARBON DIOXIDE 27 mmol/L (21-32); CHLORIDE 100 mmol/L (98-107); CREATININE 0.7 mg/dL (0.7-1.3); GFR 136.9; GLUCOSE 83 mg/dL (70-99); POTASSIUM 4.5 mmol/L (3.5-5.1); SODIUM 137 mmol/L (136-145); TOTAL BILIRUBIN 0.5 mg/dL (0.2-1.0); TOTAL PROTEIN 7.2 g/dL (6.4-8.2)
[2021-06-30 08:01] LABS: VAL ACID 62 mcg/mL (50-100)
[2021-06-30] MEDS: BENZTROPINE MESYLATE 1 MG TABLET PO SCH ×2 (09:02→19:48)
[2021-06-30] MEDS: LACTOBACILLUS RHAMNOSUS GG 1 CAPSULE. PO SCH ×2 (09:02→19:49)
[2021-06-30] MEDS: MEMANTINE 5 MG TABLET. PO SCH (09:02)
[2021-06-30] MEDS: DONEPEZIL HCL 10 MG TABLET PO SCH (09:02)
[2021-06-30] MEDS: PANTOPRAZOLE 40 MG TABLET. PO SCH (09:02)
[2021-06-30] MEDS: buPROPion XL 150 MG TAB.ER.24H PO SCH (09:02)
[2021-06-30] MEDS: amLODIPine BESYLATE 5 MG TABLET PO SCH (09:02)
[2021-06-30] MEDS: NICOTINE 14MG PATCH. TD SCH (09:02)
[2021-06-30] MEDS: risperiDONE 0.25 MG TABLET. PO PRN (09:02)
--- NOTE | 2021-06-30 09:02 | PDOC ---
Exam Note: Bj Note: This note is a late entry for 06/28/2021 covers elements not covered in my initial note. Subjective: The patient was seen individually on 06/28/2021, discussed and reviewed the chart with Sondra SUAZO. Overall the patient is withdrawn. He has been less obsessed asking about his HIV status. He felt he was in [place], [place]. He is quite hard of hearing and we will use hearing amplifier. He slept 6-1/2 hours previous night. Review of Systems: Hard of hearing. No CV, , pulmonary, eye system symptoms on review. Reliability poor. Mental Status Exam: Patient is oriented to himself and situation. Speech coherent. He walks right close to me as I was visiting with him, very poor so cial boundaries. Abstraction fair, somewhat paranoid. Computation impaired. Language function intact. Mood and affect withdrawn. No suicidal or homicidal ideation. Laboratory Data: Reviewed. Impression: Schizoaffective disorder, bipolar type, mixed with psychotic features. Mild cognitive impairment versus major neurocognitive disorder, unspecified. Anxiety disorder unspecified. Impulse control disorder unspecified. Plan: Continue current psychotropics. Reviewed drug interactions, risk-benefit ratio. Adjust further as clinically indicated. We will follow labs level to reach therapeutic level. Assessment: Vital Signs/I&O: Vital Signs Date Time Temp Pulse Resp B/P (MAP) Pulse Ox O2 Delivery O2 Flow Rate FiO2 06/30/21 06:05 98.1 76 16 127/84 (98) 99 06/29/21 06:49 Room Air I & O 06/29/21 06/29/21 06/30/21 15:00 23:00 07:00 Intake Total 840 ml 360 ml Balance 840 ml 360 ml Labs: Laboratory Tests Test 06/30/21 06:25 White Blood Count 7.5 x10^3/uL (4.0-11.0) Red Blood Count 4.51 x10^6/uL (4.30-5.70) Hemoglobin 12.7 g/dL (13.0-17.5) L Hematocrit 39.5 % (39.0-53.0) Mean Corpuscular Volume 88 fL (79-100) Mean Corpuscular Hemoglobin 28 pg (25-35) Mean Corpuscular Hemoglobin Concent 32 g/dL (31-37) Red Cell Distribution Width 14.4 % (11.5-14.5) Platelet Count 209 x10^3/uL (140-400) Neutrophils (%) (Auto) 45 % (31-73) Lymphocytes (%) (Auto) 40 % (24-48) Monocytes (%) (Auto) 14 % (0-9) H Eosinophils (%) (Auto) 1 % (0-3) Basophils (%) (Auto) 0 % (0-3) Neutrophils # (Auto) 3.4 x10^3uL (1.8-7.7) Lymphocytes # (Auto) 3.0 x10^3/uL (1.0-4.8) Monocytes # (Auto) 1.0 x10^3/uL (0.0-1.1) Eosinophils # (Auto) 0.0 x10^3/uL (0.0-0.7) Basophils # (Auto) 0.0 x10^3/uL (0.0-0.2) Sodium Level 137 mmol/L (136-145) Potassium Level 4.5 mmol/L (3.5-5.1) Chloride Level 100 mmol/L (98-107) Carbon Dioxide Level 27 mmol/L (21-32) Anion Gap 10 (6-14) Blood Urea Nitrogen 12 mg/dL (8-26) Creatinine 0.7 mg/dL (0.7-1.3) Estimated GFR (Cockcroft-Gault) 136.9 BUN/Creatinine Ratio 17 (6-20) Glucose Level 83 mg/dL (70-99) Calcium Level 8.9 mg/dL (8.5-10.1) Total Bilirubin 0.5 mg/dL (0.2-1.0) Aspartate Amino Transferase (AST) 12 U/L (15-37) L Alanine Aminotransferase (ALT) 26 U/L (16-63) Alkaline Phosphatase 82 U/L (46-116) Total Protein 7.2 g/dL (6.4-8.2) Albumin 3.2 g/dL (3.4-5.0) L Albumin/Globulin Ratio 0.8 (1.0-1.7) L Valproic Acid Level 62 mcg/mL (50-100) Valproic Acid Last Dose Date 06/29/21 Valproic Acid Last Dose Time 2100 Current Medications: Meds: Laboratory Tests Test 4/4/22 06:25 White Blood Count 7.5 x10^3/uL Red Blood Count 4.51 x10^6/uL Hemoglobin 12.7 g/dL Hematocrit 39.5 % Mean Corpuscular Volume 88 fL Mean Corpuscular Hemoglobin 28 pg Mean Corpuscular Hemoglobin Concent 32 g/dL Red Cell Distribution Width 14.4 % Platelet Count 209 x10^3/uL Neutrophils (%) (Auto) 45 % Lymphocytes (%) (Auto) 40 % Monocytes (%) (Auto) 14 % Eosinophils (%) (Auto) 1 % Basophils (%) (Auto) 0 % Neutrophils # (Auto) 3.4 x10^3uL Lymphocytes # (Auto) 3.0 x10^3/uL Monocytes # (Auto) 1.0 x10^3/uL Eosinophils # (Auto) 0.0 x10^3/uL Basophils # (Auto) 0.0 x10^3/uL Sodium Level 137 mmol/L Potassium Level 4.5 mmol/L Chloride Level 100 mmol/L Carbon Dioxide Level 27 mmol/L Anion Gap 10 Blood Urea Nitrogen 12 mg/dL Creatinine 0.7 mg/dL Estimated GFR (Cockcroft-Gault) 136.9 BUN/Creatinine Ratio 17 Glucose Level 83 mg/dL Calcium Level 8.9 mg/dL Total Bilirubin 0.5 mg/dL Aspartate Amino Transf (AST/SGOT) 12 U/L Alanine Aminotransferase (ALT/SGPT) 26 U/L Alkaline Phosphatase 82 U/L Total Protein 7.2 g/dL Albumin 3.2 g/dL Albumin/Globulin Ratio 0.8 Valproic Acid (Depakene) Level 62 mcg/mL Valproic Acid Last Dose Date 06/29/21 Valproic Acid Last Dose Time 2100 Current Medications Medications (Trade) Dose Ordered Sig/Reny Route PRN Reason Start Time Stop Time Status Last Admin Dose Admin Acetaminophen (Tylenol) 650 mg PRN Q6HRS PRN PO MILD PAIN / TEMP > 100.3'F 06/25/21 20:15 06/27/21 10:00 Multi-Ingredient Ointment (Analgesic [place]) 1 mikhail PRN QID PRN TP MUSCLE PAIN 06/25/21 20:15 Al Hydroxide/Mg Hydroxide (Mylanta Plus Xs) 15 ml PRN AFTMEALHC PRN PO DYSPEPSIA 06/25/21 20:15 Magnesium Hydroxide (Milk Of Magnesia) 2,400 mg PRN QHS PRN PO CONSTIPATION 06/25/21 20:15 Nicotine (Nicoderm Cq 14mg Patch) 1 patch DAILY TD 06/25/21 21:00 06/29/21 07:55 Benztropine Mesylate (Cogentin) 1 mg BID PO 06/26/21 22:00 06/29/21 20:20 Bupropion HCl (Wellbutrin Xl) 150 mg DAILY PO 06/26/21 09:00 06/29/21 07:53 Divalproex Sodium (Depakote Er) 500 mg HS PO 06/26/21 21:00 06/27/21 18:00 DC 06/26/21 20:47 Donepezil HCl (Aricept) 10 mg DAILY PO 06/26/21 09:00 06/29/21 07:53 Memantine (Namenda) 5 mg DAILY PO 06/26/21 09:00 06/29/21 07:54 Mirtazapine (Remeron) 7.5 mg QHS PO 06/26/21 21:00 06/29/21 20:21 Paliperidone Palmitate (Invega Sustenna) 156 mg QMONTH IM 07/25/21 09:00 Risperidone (RisperDAL) 0.25 mg PRN DAILY PRN PO agitation 06/25/21 22:00 Trazodone HCl (Desyrel) 50 mg QHS PO 06/26/21 21:00 06/29/21 20:20 Fluphenazine HCl (Prolixin Oral Conc) 1 mg PRN BID PRN PO psychosis 06/25/21 22:15 Ondansetron HCl (Zofran Odt) 4 mg PRN Q6HRS PRN PO NAUSEA/VOMITING 06/26/21 14:00 06/26/21 15:20 Amlodipine Besylate (Norvasc) 2.5 mg DAILY PO 06/28/21 09:00 06/29/21 07:54 Atorvastatin Calcium (Lipitor) 10 mg QHS PO 06/27/21 21:00 06/29/21 20:20 Triamcinolone Acetonide (Kenalog) 1 mikhail PRN DAILY PRN TP rash in armpits 06/27/21 10:45 Artificial Tears (Refresh Classic) 1 drop QIDPRN PRN OU DRY EYE 06/27/21 11:00 06/29/21 17:56 Non-Formulary Medication (Carboxymethylcellulose Sodium (Lubricant Eye Drops)) 15 ml QID OP 06/27/21 13:00 06/27/21 10:50 DC Clobetasol Propionate 1 mikhail PRN BID PRN TP RASH 06/27/21 21:00 06/29/21 07:50 DC Pantoprazole Sodium (Protonix) 40 mg DAILY07 PO 06/28/21 07:00 06/29/21 07:54 Divalproex Sodium (Depakote Er) 1,000 mg HS PO 06/27/21 21:00 06/29/21 20:20 Penicillin G Benzathine (Bicillin L-A) 2,400,000 unit WEEKLY IM 06/29/21 09:00 07/13/21 09:01 06/29/21 09:02 Lactobacillus Rhamnosus (Culturelle) 1 cap BID PO 06/30/21 09:00 I have reviewed the current psychotropics carefully including drug interactions. Risk benefit ratio favors no change other than as noted in my dictated progress note. Diagnosis: Problems: (1) Schizoaffective disorder, bipolar type (2) Impulse control disorder, unspecified (3) Anxiety disorder, unspecified (4) Bipolar disorder, current episode mixed, severe, with psychotic features (5) Major neurocognitive disorder JOHANNE LEONARDO MD Jun 30, 2021 09:02
[2021-06-30] MEDS: POLYVINYL ALCOHOL/POVIDONE/PF OPHTH SOLUTION DROPERETTE. OU PRN (09:03)
[2021-06-30 15:37] VITALS: BP 131/76
[2021-06-30] MEDS: fluPHENAZine 5 MG/ML ORAL.CONC SOLUTION. PO PRN (15:54)
[2021-06-30] MEDS: risperiDONE 0.5 MG TABLET. PO SCH (17:34)
[2021-06-30] MEDS: ATORVASTATIN CALCIUM 10 MG TABLET. PO SCH (19:48)
[2021-06-30] MEDS: DIVALPROEX ER 500 MG TAB.ER.24H PO SCH (19:49)
[2021-06-30] MEDS: MIRTAZAPINE 15 MG TABLET PO SCH (19:49)
[2021-06-30] MEDS: traZODone 50 MG TABLET. PO SCH (19:50)
--- NOTE | 2021-06-30 21:51 | PDOC ---
Exam Note: Bj Note: Please also refer to the separate dictated note~for this date of service dictated separately.~Patient seen individually. Discussed the patient with Nursing staff reviewed the chart.~Reviewed interim history and current functioning. Reviewed vital signs,~Labs/ Radiology~and current medications noted below. Continue current treatment with the changes noted in the dictated addendum note Assessment: Vital Signs/I&O: Vital Signs Date Time Temp Pulse Resp B/P (MAP) Pulse Ox O2 Delivery O2 Flow Rate FiO2 06/30/21 15:37 97.8 86 22 131/76 (94) 99 06/29/21 06:49 Room Air I & O 06/29/21 06/29/21 06/30/21 15:00 23:00 07:00 Intake Total 840 ml 360 ml Balance 840 ml 360 ml Labs: Laboratory Tests Test 06/30/21 06:25 White Blood Count 7.5 x10^3/uL (4.0-11.0) Red Blood Count 4.51 x10^6/uL (4.30-5.70) Hemoglobin 12.7 g/dL (13.0-17.5) L Hematocrit 39.5 % (39.0-53.0) Mean Corpuscular Volume 88 fL (79-100) Mean Corpuscular Hemoglobin 28 pg (25-35) Mean Corpuscular Hemoglobin Concent 32 g/dL (31-37) Red Cell Distribution Width 14.4 % (11.5-14.5) Platelet Count 209 x10^3/uL (140-400) Neutrophils (%) (Auto) 45 % (31-73) Lymphocytes (%) (Auto) 40 % (24-48) Monocytes (%) (Auto) 14 % (0-9) H Eosinophils (%) (Auto) 1 % (0-3) Basophils (%) (Auto) 0 % (0-3) Neutrophils # (Auto) 3.4 x10^3uL (1.8-7.7) Lymphocytes # (Auto) 3.0 x10^3/uL (1.0-4.8) Monocytes # (Auto) 1.0 x10^3/uL (0.0-1.1) Eosinophils # (Auto) 0.0 x10^3/uL (0.0-0.7) Basophils # (Auto) 0.0 x10^3/uL (0.0-0.2) Sodium Level 137 mmol/L (136-145) Potassium Level 4.5 mmol/L (3.5-5.1) Chloride Level 100 mmol/L (98-107) Carbon Dioxide Level 27 mmol/L (21-32) Anion Gap 10 (6-14) Blood Urea Nitrogen 12 mg/dL (8-26) Creatinine 0.7 mg/dL (0.7-1.3) Estimated GFR (Cockcroft-Gault) 136.9 BUN/Creatinine Ratio 17 (6-20) Glucose Level 83 mg/dL (70-99) Calcium Level 8.9 mg/dL (8.5-10.1) Total Bilirubin 0.5 mg/dL (0.2-1.0) Aspartate Amino Transferase (AST) 12 U/L (15-37) L Alanine Aminotransferase (ALT) 26 U/L (16-63) Alkaline Phosphatase 82 U/L (46-116) Total Protein 7.2 g/dL (6.4-8.2) Albumin 3.2 g/dL (3.4-5.0) L Albumin/Globulin Ratio 0.8 (1.0-1.7) L Valproic Acid Level 62 mcg/mL (50-100) Valproic Acid Last Dose Date 06/29/21 Valproic Acid Last Dose Time 2100 Current Medications: Meds: Laboratory Tests Test 06/30/21 06:25 White Blood Count 7.5 x10^3/uL Red Blood Count 4.51 x10^6/uL Hemoglobin 12.7 g/dL Hematocrit 39.5 % Mean Corpuscular Volume 88 fL Mean Corpuscular Hemoglobin 28 pg Mean Corpuscular Hemoglobin Concent 32 g/dL Red Cell Distribution Width 14.4 % Platelet Count 209 x10^3/uL Neutrophils (%) (Auto) 45 % Lymphocytes (%) (Auto) 40 % Monocytes (%) (Auto) 14 % Eosinophils (%) (Auto) 1 % Basophils (%) (Auto) 0 % Neutrophils # (Auto) 3.4 x10^3uL Lymphocytes # (Auto) 3.0 x10^3/uL Monocytes # (Auto) 1.0 x10^3/uL Eosinophils # (Auto) 0.0 x10^3/uL Basophils # (Auto) 0.0 x10^3/uL Sodium Level 137 mmol/L Potassium Level 4.5 mmol/L Chloride Level 100 mmol/L Carbon Dioxide Level 27 mmol/L Anion Gap 10 Blood Urea Nitrogen 12 mg/dL Creatinine 0.7 mg/dL Estimated GFR (Cockcroft-Gault) 136.9 BUN/Creatinine Ratio 17 Glucose Level 83 mg/dL Calcium Level 8.9 mg/dL Total Bilirubin 0.5 mg/dL Aspartate Amino Transf (AST/SGOT) 12 U/L Alanine Aminotransferase (ALT/SGPT) 26 U/L Alkaline Phosphatase 82 U/L Total Protein 7.2 g/dL Albumin 3.2 g/dL Albumin/Globulin Ratio 0.8 Valproic Acid (Depakene) Level 62 mcg/mL Valproic Acid Last Dose Date 06/29/21 Valproic Acid Last Dose Time 2100 Current Medications Medications (Trade) Dose Ordered Sig/Reny Route PRN Reason Start Time Stop Time Status Last Admin Dose Admin Acetaminophen (Tylenol) 650 mg PRN Q6HRS PRN PO MILD PAIN / TEMP > 100.3'F 06/25/21 20:15 06/27/21 10:00 Multi-Ingredient Ointment (Analgesic [place]) 1 mikhail PRN QID PRN TP MUSCLE PAIN 06/25/21 20:15 Al Hydroxide/Mg Hydroxide (Mylanta Plus Xs) 15 ml PRN AFTMEALHC PRN PO DYSPEPSIA 06/25/21 20:15 Magnesium Hydroxide (Milk Of Magnesia) 2,400 mg PRN QHS PRN PO CONSTIPATION 06/25/21 20:15 Nicotine (Nicoderm Cq 14mg Patch) 1 patch DAILY TD 06/25/21 21:00 06/30/21 09:02 Benztropine Mesylate (Cogentin) 1 mg BID PO 06/26/21 22:00 06/30/21 19:48 Bupropion HCl (Wellbutrin Xl) 150 mg DAILY PO 06/26/21 09:00 06/30/21 09:02 Divalproex Sodium (Depakote Er) 500 mg HS PO 06/26/21 21:00 06/27/21 18:00 DC 06/26/21 20:47 Donepezil HCl (Aricept) 10 mg DAILY PO 06/26/21 09:00 06/30/21 09:02 Memantine (Namenda) 5 mg DAILY PO 06/26/21 09:00 06/30/21 09:02 Mirtazapine (Remeron) 7.5 mg QHS PO 06/26/21 21:00 06/30/21 19:49 Paliperidone Palmitate (Invega Sustenna) 156 mg QMONTH IM 07/25/21 09:00 Risperidone (RisperDAL) 0.25 mg PRN DAILY PRN PO agitation 06/25/21 22:00 06/30/21 09:02 Trazodone HCl (Desyrel) 50 mg QHS PO 06/26/21 21:00 06/30/21 19:50 Fluphenazine HCl (Prolixin Oral Conc) 1 mg PRN BID PRN PO psychosis 06/25/21 22:15 06/30/21 15:54 Ondansetron HCl (Zofran Odt) 4 mg PRN Q6HRS PRN PO NAUSEA/VOMITING 06/26/21 14:00 06/26/21 15:20 Amlodipine Besylate (Norvasc) 2.5 mg DAILY PO 06/28/21 09:00 06/30/21 09:02 Atorvastatin Calcium (Lipitor) 10 mg QHS PO 06/27/21 21:00 06/30/21 19:48 Triamcinolone Acetonide (Kenalog) 1 mikhail PRN DAILY PRN TP rash in armpits 06/27/21 10:45 Artificial Tears (Refresh Classic) 1 drop QIDPRN PRN OU DRY EYE 06/27/21 11:00 06/30/21 09:03 Non-Formulary Medication (Carboxymethylcellulose Sodium (Lubricant Eye Drops)) 15 ml QID OP 06/27/21 13:00 06/27/21 10:50 DC Clobetasol Propionate 1 mikhail PRN BID PRN TP RASH 06/27/21 21:00 06/29/21 07:50 DC Pantoprazole Sodium (Protonix) 40 mg DAILY07 PO 06/28/21 07:00 06/30/21 09:02 Divalproex Sodium (Depakote Er) 1,000 mg HS PO 06/27/21 21:00 06/30/21 19:49 Penicillin G Benzathine (Bicillin L-A) 2,400,000 unit WEEKLY IM 06/29/21 09:00 07/13/21 09:01 06/29/21 09:02 Lactobacillus Rhamnosus (Culturelle) 1 cap BID PO 06/30/21 09:00 06/30/21 19:49 Risperidone (RisperDAL) 0.5 mg DAILY PO 06/30/21 17:15 06/30/21 17:34 Current Medications Medications (Trade) Dose Ordered Sig/Reny Route PRN Reason Start Time Stop Time Status Last Admin Dose Admin Lactobacillus Rhamnosus (Culturelle) 1 cap BID PO 06/30/21 09:00 06/30/21 19:49 Risperidone (RisperDAL) 0.5 mg DAILY PO 06/30/21 17:15 06/30/21 17:34 I have reviewed the current psychotropics carefully including drug interactions. Risk benefit ratio favors no change other than as noted in my dictated progress note. Diagnosis: Problems: (1) Schizoaffective disorder, bipolar type (2) Impulse control disorder, unspecified (3) Anxiety disorder, unspecified (4) Bipolar disorder, current episode mixed, severe, with psychotic features (5) Major neurocognitive disorder JOHANNE LEONARDO MD Jun 30, 2021 21:51
[2021-07-01 06:12] VITALS: BP 108/74
[2021-07-01] MEDS: risperiDONE 0.5 MG TABLET. PO SCH (07:46)
[2021-07-01] MEDS: buPROPion XL 150 MG TAB.ER.24H PO SCH (07:46)
[2021-07-01] MEDS: LACTOBACILLUS RHAMNOSUS GG 1 CAPSULE. PO SCH ×2 (07:46→21:04)
[2021-07-01] MEDS: NICOTINE 14MG PATCH. TD SCH (07:46)
[2021-07-01] MEDS: PANTOPRAZOLE 40 MG TABLET. PO SCH (07:46)
[2021-07-01] MEDS: MEMANTINE 5 MG TABLET. PO SCH (07:47)
[2021-07-01] MEDS: amLODIPine BESYLATE 5 MG TABLET PO SCH (07:47)
[2021-07-01] MEDS: DONEPEZIL HCL 10 MG TABLET PO SCH (07:47)
[2021-07-01] MEDS: BENZTROPINE MESYLATE 1 MG TABLET PO SCH ×2 (07:48→21:04)
[2021-07-01] MEDS: ACETAMINOPHEN 325 MG TABLET PO PRN (07:53)
--- NOTE | 2021-07-01 08:33 | PDOC ---
Exam Note: Bj Note: This note is a late entry for 06/29/2021 covers elements not covered in my initial note. Subjective: The patient was seen individually on 06/29/2021, discussed and reviewed the chart with Kamryn SUAZO. The patient slept 6-3/4 hours previous night. He has been intermittently pleasant with somatic complaints, withdrawn, spends much time in his room. He remains on penicillin for syphilis. He got up from his bed as I visited him in his room and walked right up to my face within a few inches, oblivious of the social inappropriateness of this. He is HIV positive as well. He is tolerating Depakote and we are adjusting to reach therapeutic level. Review of Systems: Hard of hearing. No CV, , pulmonary, eye system symptoms on review. Reliability poor. Mental Status Exam: Patient is oriented to himself and situation. Speech has some latency, coherent. Often response is monosyllabic. Abstraction fair. Computation impaired. Language function intact. Mood and affect paranoid at times, somewhat distractible with ongoing mood lability. No suicidal or homicidal ideation. Laboratory Data: Reviewed. Impression: Schizoaffective disorder, bipolar type, mixed with psychotic features. Mild cognitive impairment versus major neurocognitive disorder, unspecified. Anxiety disorder unspecified. Impulse control disorder unspecified. Plan: Continue current psychotropics unchanged. Reviewed drug interactions, risk-benefit ratio. Follow labs level on valproic acid. Adjust to reach therapeutic level. We may need to add scheduled Risperdal. We may need to add scheduled Risperdal to his Invega Sustenna if psychotic symptoms persist. Assessment: Vital Signs/I&O: Vital Signs Date Time Temp Pulse Resp B/P (MAP) Pulse Ox O2 Delivery O2 Flow Rate FiO2 07/01/21 07:47 84 108/74 07/01/21 06:12 98.1 20 100 Room Air I & O 06/30/21 06/30/21 07/01/21 15:00 23:00 07:00 Intake Total 600 ml 560 ml Balance 600 ml 560 ml Current Medications: Meds: Current Medications Medications (Trade) Dose Ordered Sig/Reny Route PRN Reason Start Time Stop Time Status Last Admin Dose Admin Lactobacillus Rhamnosus (Culturelle) 1 cap BID PO 06/30/21 09:00 07/01/21 07:46 Risperidone (RisperDAL) 0.5 mg DAILY PO 06/30/21 17:15 07/01/21 07:46 I have reviewed the current psychotropics carefully including drug interactions. Risk benefit ratio favors no change other than as noted in my dictated progress note. Diagnosis: Problems: (1) Schizoaffective disorder, bipolar type (2) Impulse control disorder, unspecified (3) Anxiety disorder, unspecified (4) Bipolar disorder, current episode mixed, severe, with psychotic features (5) Major neurocognitive disorder JOHANNE LEONARDO MD Jul 01, 2021 08:33
--- NOTE | 2021-07-01 08:49 | PDOC ---
Exam Note: Bj Note: This note is a late entry for 06/30/2021 covers elements not covered in my initial note. Subjective: The patient was seen individually on 06/30/2021, discussed and reviewed the chart with Kirsten SUAZO. The patient slept 8 hours previous night. He has had a very difficult day. He is extremely hard of hearing, difficult to communicate with him, demanding to have shower everyday and if he is not given that he gets very agitated, aggressive with staff earlier today. He took his morning meds in the [facility] hallway. Received p.r.n. Risperdal and one point was punching the window, yelling because he wanted a shower. He was also paranoid, states the payee is stealing money from him and he was agitated about his bank account in the evening. Received p.r.n. Prolixin. Review of Systems: Hard of hearing. No CV, , pulmonary, eye system symptoms on review. Reliability poor. Mental Status Exam: Patient is alert and oriented. Speech has some latency, coherent. Abstraction fair. Computation impaired. Language function intact. Mood and affect remains anxious, labile, paranoid. Laboratory Data: Reviewed. Impression: Schizoaffective disorder, bipolar type, mixed with psychotic features. Mild cognitive impairment versus major neurocognitive disorder, unspecified. Anxiety disorder unspecified. Impulse control disorder unspecified. Plan: Valproic acid level is 62 therapeutic. We will continue Depakote unchanged and change Risperdal 0.25 mg daily p.r.n. to 0.5 mg a day in the morning but for this evening, we will give him one dosage. He is still on Invega Sustenna and the Depakote with a therapeutic level as noted. Reviewed drug interactions, risk-benefit ratio. Adjust further as clinically indicated. Assessment: Vital Signs/I&O: Vital Signs Date Time Temp Pulse Resp B/P (MAP) Pulse Ox O2 Delivery O2 Flow Rate FiO2 07/01/21 07:47 84 108/74 07/01/21 06:12 98.1 20 100 Room Air I & O 06/30/21 06/30/21 07/01/21 15:00 23:00 07:00 Intake Total 600 ml 560 ml Balance 600 ml 560 ml Current Medications: Meds: Current Medications Medications (Trade) Dose Ordered Sig/Reny Route PRN Reason Start Time Stop Time Status Last Admin Dose Admin Lactobacillus Rhamnosus (Culturelle) 1 cap BID PO 06/30/21 09:00 07/01/21 07:46 Risperidone (RisperDAL) 0.5 mg DAILY PO 06/30/21 17:15 07/01/21 07:46 I have reviewed the current psychotropics carefully including drug interactions. Risk benefit ratio favors no change other than as noted in my dictated progress note. Diagnosis: Problems: (1) Schizoaffective disorder, bipolar type (2) Impulse control disorder, unspecified (3) Anxiety disorder, unspecified (4) Bipolar disorder, current episode mixed, severe, with psychotic features (5) Major neurocognitive disorder JOHANNE LEONARDO MD Jul 01, 2021 08:49
[2021-07-01 16:21] VITALS: BP 114/78
[2021-07-01] MEDS: risperiDONE 0.25 MG TABLET. PO PRN (16:38)
[2021-07-01] MEDS ORDERED: risperiDONE 0.5 MG TABLET. PO SCH (17:00)
[2021-07-01] MEDS: traZODone 50 MG TABLET. PO SCH (21:04)
[2021-07-01] MEDS: ATORVASTATIN CALCIUM 10 MG TABLET. PO SCH (21:04)
[2021-07-01] MEDS: MIRTAZAPINE 15 MG TABLET PO SCH (21:04)
[2021-07-01] MEDS: DIVALPROEX ER 500 MG TAB.ER.24H PO SCH (21:05)
--- NOTE | 2021-07-01 22:02 | PDOC ---
Exam Note: Bj Note: Please also refer to the separate dictated note~for this date of service dictated separately.~Patient seen individually. Discussed the patient with Nursing staff reviewed the chart.~Reviewed interim history and current functioning. Reviewed vital signs,~Labs/ Radiology~and current medications noted below. Continue current treatment with the changes noted in the dictated addendum note Assessment: Vital Signs/I&O: Vital Signs Date Time Temp Pulse Resp B/P (MAP) Pulse Ox O2 Delivery O2 Flow Rate FiO2 07/01/21 16:21 98.0 72 18 114/78 (90) 100 Room Air I & O 06/30/21 06/30/21 07/01/21 15:00 23:00 07:00 Intake Total 600 ml 560 ml Balance 600 ml 560 ml Current Medications: Meds: Current Medications Medications (Trade) Dose Ordered Sig/Reny Route PRN Reason Start Time Stop Time Status Last Admin Dose Admin Acetaminophen (Tylenol) 650 mg PRN Q6HRS PRN PO MILD PAIN / TEMP > 100.3'F 06/25/21 20:15 07/01/21 07:53 Multi-Ingredient Ointment (Analgesic [place]) 1 mikhail PRN QID PRN TP MUSCLE PAIN 06/25/21 20:15 Al Hydroxide/Mg Hydroxide (Mylanta Plus Xs) 15 ml PRN AFTMEALHC PRN PO DYSPEPSIA 06/25/21 20:15 Magnesium Hydroxide (Milk Of Magnesia) 2,400 mg PRN QHS PRN PO CONSTIPATION 06/25/21 20:15 Nicotine (Nicoderm Cq 14mg Patch) 1 patch DAILY TD 06/25/21 21:00 07/01/21 07:46 Benztropine Mesylate (Cogentin) 1 mg BID PO 06/26/21 22:00 07/01/21 21:04 Bupropion HCl (Wellbutrin Xl) 150 mg DAILY PO 06/26/21 09:00 07/01/21 07:46 Divalproex Sodium (Depakote Er) 500 mg HS PO 06/26/21 21:00 06/27/21 18:00 DC 06/26/21 20:47 Donepezil HCl (Aricept) 10 mg DAILY PO 06/26/21 09:00 07/01/21 07:47 Memantine (Namenda) 5 mg DAILY PO 06/26/21 09:00 07/01/21 07:47 Mirtazapine (Remeron) 7.5 mg QHS PO 06/26/21 21:00 07/01/21 21:04 Paliperidone Palmitate (Invega Sustenna) 156 mg QMONTH IM 07/25/21 09:00 Risperidone (RisperDAL) 0.25 mg PRN DAILY PRN PO agitation 06/25/21 22:00 07/01/21 16:38 Trazodone HCl (Desyrel) 50 mg QHS PO 06/26/21 21:00 07/01/21 21:04 Fluphenazine HCl (Prolixin Oral Conc) 1 mg PRN BID PRN PO psychosis 06/25/21 22:15 06/30/21 15:54 Ondansetron HCl (Zofran Odt) 4 mg PRN Q6HRS PRN PO NAUSEA/VOMITING 06/26/21 14:00 06/26/21 15:20 Amlodipine Besylate (Norvasc) 2.5 mg DAILY PO 06/28/21 09:00 07/01/21 07:47 Atorvastatin Calcium (Lipitor) 10 mg QHS PO 06/27/21 21:00 07/01/21 21:04 Triamcinolone Acetonide (Kenalog) 1 mikhail PRN DAILY PRN TP rash in armpits 06/27/21 10:45 Artificial Tears (Refresh Classic) 1 drop QIDPRN PRN OU DRY EYE 06/27/21 11:00 06/30/21 09:03 Non-Formulary Medication (Carboxymethylcellulose Sodium (Lubricant Eye Drops)) 15 ml QID OP 06/27/21 13:00 06/27/21 10:50 DC Clobetasol Propionate 1 mikhail PRN BID PRN TP RASH 06/27/21 21:00 06/29/21 07:50 DC Pantoprazole Sodium (Protonix) 40 mg DAILY07 PO 06/28/21 07:00 07/01/21 07:46 Divalproex Sodium (Depakote Er) 1,000 mg HS PO 06/27/21 21:00 07/01/21 21:05 Penicillin G Benzathine (Bicillin L-A) 2,400,000 unit WEEKLY IM 06/29/21 09:00 07/13/21 09:01 06/29/21 09:02 Lactobacillus Rhamnosus (Culturelle) 1 cap BID PO 06/30/21 09:00 07/01/21 21:04 Risperidone (RisperDAL) 0.5 mg DAILY PO 06/30/21 17:15 07/01/21 16:59 DC 07/01/21 07:46 Risperidone (RisperDAL) 0.5 mg 0900,1700 PO 07/01/21 17:00 07/01/21 17:30 Current Medications Medications (Trade) Dose Ordered Sig/Reny Route PRN Reason Start Time Stop Time Status Last Admin Dose Admin Risperidone (RisperDAL) 0.5 mg 0900,1700 PO 07/01/21 17:00 07/01/21 17:30 I have reviewed the current psychotropics carefully including drug interactions. Risk benefit ratio favors no change other than as noted in my dictated progress note. Diagnosis: Problems: (1) Schizoaffective disorder, bipolar type (2) Impulse control disorder, unspecified (3) Anxiety disorder, unspecified (4) Bipolar disorder, current episode mixed, severe, with psychotic features (5) Major neurocognitive disorder JOHANNE LEONARDO MD Jul 01, 2021 22:02
[2021-07-02 00:45] VITALS: BP 132/85
[2021-07-02] MEDS: fluPHENAZine 5 MG/ML ORAL.CONC SOLUTION. PO PRN ×2 (01:15→13:26)
[2021-07-02 06:06] VITALS: BP 125/74
[2021-07-02] MEDS: LACTOBACILLUS RHAMNOSUS GG 1 CAPSULE. PO SCH ×2 (07:58→19:51)
[2021-07-02] MEDS: PANTOPRAZOLE 40 MG TABLET. PO SCH (07:58)
[2021-07-02] MEDS: risperiDONE 0.5 MG TABLET. PO SCH ×2 (07:58→17:27)
[2021-07-02] MEDS: POLYVINYL ALCOHOL/POVIDONE/PF OPHTH SOLUTION DROPERETTE. OU PRN (07:58)
[2021-07-02] MEDS: amLODIPine BESYLATE 5 MG TABLET PO SCH (07:59)
[2021-07-02] MEDS: MEMANTINE 5 MG TABLET. PO SCH (07:59)
[2021-07-02] MEDS: DONEPEZIL HCL 10 MG TABLET PO SCH (08:00)
[2021-07-02] MEDS: buPROPion XL 150 MG TAB.ER.24H PO SCH (08:00)
[2021-07-02] MEDS: NICOTINE 14MG PATCH. TD SCH (08:00)
[2021-07-02] MEDS: BENZTROPINE MESYLATE 1 MG TABLET PO SCH ×2 (08:00→19:52)
[2021-07-02] MEDS: ACETAMINOPHEN 325 MG TABLET PO PRN (08:01)
--- NOTE | 2021-07-02 10:13 | PDOC ---
Exam Note: Bj Note: This note is a late entry for 07/01/2021 covers elements not covered in my initial note. Subjective: The patient was seen individually on 07/01/2021, discussed and reviewed the chart with Sondra SUAZO. The patient slept 6-1/2 hours previous night. He has been increasingly agitated, paranoid. He is obsessed regarding his HIV blood work and Dr. Ann is following this. He has been yelling, screaming, later calmed down. He was given a razor to shave and he was locking the bathroom door, not letting the staff come in. They removed the razor and then he was extremely agitated, intrusive, yelling. I processed this with him. He is somewhat obsessive, questioning me repeatedly about his HIV status. Review of Systems: Hard of hearing. No CV, , pulmonary, eye system symptoms on review. Reliability poor. Mental Status Exam: Patient is alert and oriented. Speech has some latency, coherent. Abstraction fair. Computation impaired. Language function intact. Mood and affect remains anxious, labile, paranoid. Laboratory Data: Reviewed. Impression: Schizoaffective disorder, bipolar type, mixed with psychotic features. Mild cognitive impairment versus major neurocognitive disorder, uns pecified. Anxiety disorder unspecified. Impulse control disorder unspecified. Plan: Continue current psychotropics. He is on Risperdal 0.5 mg daily. We will increase to 0.5 mg 9 a.m., 5 p.m. Rest unchanged. Reviewed drug interactions, risk-benefit ratio. Assessment: Vital Signs/I&O: Vital Signs Date Time Temp Pulse Resp B/P (MAP) Pulse Ox O2 Delivery O2 Flow Rate FiO2 07/02/21 07:59 82 125/74 07/02/21 06:06 97.8 16 98 07/02/21 00:45 Room Air I & O 07/01/21 07/01/21 07/02/21 15:00 23:00 07:00 Intake Total 480 ml 600 ml Balance 480 ml 600 ml Current Medications: Meds: Current Medications Medications (Trade) Dose Ordered Sig/Reny Route PRN Reason Start Time Stop Time Status Last Admin Dose Admin Risperidone (RisperDAL) 0.5 mg 0900,1700 PO 07/01/21 17:00 07/02/21 02:36 DC 07/01/21 17:30 Risperidone (RisperDAL) 1 mg 0900,1700 PO 07/02/21 09:00 07/02/21 07:58 I have reviewed the current psychotropics carefully including drug interactions. Risk benefit ratio favors no change other than as noted in my dictated progress note. Diagnosis: Problems: (1) Schizoaffective disorder, bipolar type (2) Impulse control disorder, unspecified (3) Anxiety disorder, unspecified (4) Bipolar disorder, current episode mixed, severe, with psychotic features (5) Major neurocognitive disorder JOHANNE LEONARDO MD Jul 02, 2021 10:13
[2021-07-02 16:12] VITALS: BP 150/69
[2021-07-02] MEDS ORDERED: traZODone 50 MG TABLET. PO ONE (17:15)
[2021-07-02] MEDS: traZODone 50 MG TABLET. PO SCH (19:52)
[2021-07-02] MEDS: DIVALPROEX ER 500 MG TAB.ER.24H PO SCH (19:52)
[2021-07-02] MEDS: MIRTAZAPINE 15 MG TABLET PO SCH (19:52)
[2021-07-02] MEDS: risperiDONE 0.25 MG TABLET. PO PRN (19:52)
[2021-07-02] MEDS: ATORVASTATIN CALCIUM 10 MG TABLET. PO SCH (19:52)
--- NOTE | 2021-07-02 21:59 | PDOC ---
Exam Note: Bj Note: Please also refer to the separate dictated note~for this date of service dictated separately.~Patient seen individually. Discussed the patient with Nursing staff reviewed the chart.~Reviewed interim history and current functioning. Reviewed vital signs,~Labs/ Radiology~and current medications noted below. Continue current treatment with the changes noted in the dictated addendum note Assessment: Vital Signs/I&O: Vital Signs Date Time Temp Pulse Resp B/P (MAP) Pulse Ox O2 Delivery O2 Flow Rate FiO2 07/02/21 16:12 97.8 77 20 150/69 (96) 99 07/02/21 00:45 Room Air I & O 07/01/21 07/01/21 07/02/21 15:00 23:00 07:00 Intake Total 480 ml 600 ml Balance 480 ml 600 ml Labs: Laboratory Tests Test 07/02/21 07:55 SARS-CoV-2 (PCR) Not detected (NOT DETECTD) Current Medications: Meds: Laboratory Tests Test 07/02/21 07:55 Coronavirus (COVID-19)(PCR) Not detected Current Medications Medications (Trade) Dose Ordered Sig/Reny Route PRN Reason Start Time Stop Time Status Last Admin Dose Admin Acetaminophen (Tylenol) 650 mg PRN Q6HRS PRN PO MILD PAIN / TEMP > 100.3'F 06/25/21 20:15 07/02/21 08:01 Multi-Ingredient Ointment (Analgesic [place]) 1 mikhail PRN QID PRN TP MUSCLE PAIN 06/25/21 20:15 Al Hydroxide/Mg Hydroxide (Mylanta Plus Xs) 15 ml PRN AFTMEALHC PRN PO DYSPEPSIA 06/25/21 20:15 Magnesium Hydroxide (Milk Of Magnesia) 2,400 mg PRN QHS PRN PO CONSTIPATION 06/25/21 20:15 Nicotine (Nicoderm Cq 14mg Patch) 1 patch DAILY TD 06/25/21 21:00 07/02/21 08:00 Benztropine Mesylate (Cogentin) 1 mg BID PO 06/26/21 22:00 07/02/21 19:52 Bupropion HCl (Wellbutrin Xl) 150 mg DAILY PO 06/26/21 09:00 07/02/21 08:00 Divalproex Sodium (Depakote Er) 500 mg HS PO 06/26/21 21:00 06/27/21 18:00 DC 06/26/21 20:47 Donepezil HCl (Aricept) 10 mg DAILY PO 06/26/21 09:00 07/02/21 08:00 Memantine (Namenda) 5 mg DAILY PO 06/26/21 09:00 07/02/21 07:59 Mirtazapine (Remeron) 7.5 mg QHS PO 06/26/21 21:00 07/02/21 19:52 Paliperidone Palmitate (Invega Sustenna) 156 mg QMONTH IM 07/25/21 09:00 Risperidone (RisperDAL) 0.25 mg PRN DAILY PRN PO agitation 06/25/21 22:00 07/02/21 19:52 Trazodone HCl (Desyrel) 50 mg QHS PO 06/26/21 21:00 07/02/21 19:52 Fluphenazine HCl (Prolixin Oral Conc) 1 mg PRN BID PRN PO psychosis 06/25/21 22:15 07/02/21 13:26 Ondansetron HCl (Zofran Odt) 4 mg PRN Q6HRS PRN PO NAUSEA/VOMITING 06/26/21 14:00 06/26/21 15:20 Amlodipine Besylate (Norvasc) 2.5 mg DAILY PO 06/28/21 09:00 07/02/21 07:59 Atorvastatin Calcium (Lipitor) 10 mg QHS PO 06/27/21 21:00 07/02/21 19:52 Triamcinolone Acetonide (Kenalog) 1 mikhail PRN DAILY PRN TP rash in armpits 06/27/21 10:45 Artificial Tears (Refresh Classic) 1 drop QIDPRN PRN OU DRY EYE 06/27/21 11:00 07/02/21 07:58 Non-Formulary Medication (Carboxymethylcellulose Sodium (Lubricant Eye Drops)) 15 ml QID OP 06/27/21 13:00 06/27/21 10:50 DC Clobetasol Propionate 1 mikhail PRN BID PRN TP RASH 06/27/21 21:00 06/29/21 07:50 DC Pantoprazole Sodium (Protonix) 40 mg DAILY07 PO 06/28/21 07:00 07/02/21 07:58 Divalproex Sodium (Depakote Er) 1,000 mg HS PO 06/27/21 21:00 07/02/21 19:52 Penicillin G Benzathine (Bicillin L-A) 2,400,000 unit WEEKLY IM 06/29/21 09:00 07/13/21 09:01 06/29/21 09:02 Lactobacillus Rhamnosus (Culturelle) 1 cap BID PO 06/30/21 09:00 07/02/21 19:51 Risperidone (RisperDAL) 0.5 mg DAILY PO 06/30/21 17:15 07/01/21 16:59 DC 07/01/21 07:46 Risperidone (RisperDAL) 0.5 mg 0900,1700 PO 07/01/21 17:00 07/02/21 02:36 DC 07/01/21 17:30 Risperidone (RisperDAL) 1 mg 0900,1700 PO 07/02/21 09:00 07/02/21 17:27 Trazodone HCl (Desyrel) 25 mg 0900,1300,1700 PO 07/03/21 09:00 Trazodone HCl (Desyrel) 50 mg 1X ONCE PO 07/02/21 17:15 07/02/21 17:16 DC 07/02/21 17:29 Current Medications Medications (Trade) Dose Ordered Sig/Reny Route PRN Reason Start Time Stop Time Status Last Admin Dose Admin Risperidone (RisperDAL) 1 mg 0900,1700 PO 07/02/21 09:00 07/02/21 17:27 Trazodone HCl (Desyrel) 50 mg 1X ONCE PO 07/02/21 17:15 07/02/21 17:16 DC 07/02/21 17:29 I have reviewed the current psychotropics carefully including drug interactions. Risk benefit ratio favors no change other than as noted in my dictated progress note. Diagnosis: Problems: (1) Schizoaffective disorder, bipolar type (2) Impulse control disorder, unspecified (3) Anxiety disorder, unspecified (4) Bipolar disorder, current episode mixed, severe, with psychotic features (5) Major neurocognitive disorder JOHANNE LEONARDO MD Jul 02, 2021 21:59
[2021-07-03 06:35] VITALS: BP 129/93
[2021-07-03] MEDS: PANTOPRAZOLE 40 MG TABLET. PO SCH (09:18)
[2021-07-03] MEDS: BENZTROPINE MESYLATE 1 MG TABLET PO SCH ×2 (09:18→20:18)
[2021-07-03] MEDS: MEMANTINE 5 MG TABLET. PO SCH (09:19)
[2021-07-03] MEDS: traZODone 50 MG TABLET. PO SCH ×4 (09:19→20:17)
[2021-07-03] MEDS: LACTOBACILLUS RHAMNOSUS GG 1 CAPSULE. PO SCH ×2 (09:19→20:16)
[2021-07-03] MEDS: DONEPEZIL HCL 10 MG TABLET PO SCH (09:19)
[2021-07-03] MEDS: amLODIPine BESYLATE 5 MG TABLET PO SCH (09:19)
[2021-07-03] MEDS: buPROPion XL 150 MG TAB.ER.24H PO SCH (09:19)
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
[2021-07-03] MEDS: risperiDONE 0.5 MG TABLET. PO SCH ×2 (09:20→17:20)
[2021-07-03] MEDS: NICOTINE 14MG PATCH. TD SCH (09:20)
[2021-07-03] MEDS: risperiDONE 0.25 MG TABLET. PO PRN (12:22)
--- NOTE | 2021-07-03 14:40 | RAD ---
CT HEAD/BRAIN WO History: Reason: AMS, hx TBI / Spl. Instructions: / History: Comparison: None. Technique: Noncontrast CT imaging was performed of the head. Exposure: One or more of the following individualized dose reduction techniques were utilized for thi s examination: 1. Automated exposure control 2. Adjustment of the mA and/or kV according to patient size 3. Use of iterative reconstruction technique. Findings: No intracranial hemorrhage. No mass effect. No hydrocephalus. Mild brain parenchymal volume loss. Extensive foci of decreased attenuation within hemispheric white matter. Partially empty sella, often incidental. Imaged orbits are unremarkable. Imaged paranasal sinuses and mastoid air cells are clear. No acute ca lvarial fracture. Impression: 1. No acute intracranial abnormality. 2. Severe nonspecific white matter changes, most often due to chronic microvascular ischemia. Differ ential considerations include prior insult or infection, demyelinating disease or vasculitis. Electronically signed by: Jose Luis Huertas DO (07/03/2021 2:37 PM) [facility]
[2021-07-03 16:44] VITALS: BP 143/87
[2021-07-03] MEDS: ATORVASTATIN CALCIUM 10 MG TABLET. PO SCH (20:17)
[2021-07-03] MEDS: DIVALPROEX ER 500 MG TAB.ER.24H PO SCH (20:17)
[2021-07-03] MEDS: MIRTAZAPINE 15 MG TABLET PO SCH (20:17)
--- NOTE | 2021-07-03 21:40 | PDOC ---
Exam Note: Bj Note: Please also refer to the separate dictated note~for this date of service dictated separately.~Patient seen individually. Discussed the patient with Nursing staff reviewed the chart.~Reviewed interim history and current functioning. Reviewed vital signs,~Labs/ Radiology~and current medications noted below. Continue current treatment with the changes noted in the dictated addendum note Assessment: Vital Signs/I&O: Vital Signs Date Time Temp Pulse Resp B/P (MAP) Pulse Ox O2 Delivery O2 Flow Rate FiO2 07/03/21 16:44 98.9 67 20 143/87 (105) 100 07/02/21 00:45 Room Air I & O 07/02/21 07/02/21 07/03/21 15:00 23:00 07:00 Intake Total 440 ml 460 ml Balance 440 ml 460 ml Current Medications: Meds: Current Medications Medications (Trade) Dose Ordered Sig/Reny Route PRN Reason Start Time Stop Time Status Last Admin Dose Admin Acetaminophen (Tylenol) 650 mg PRN Q6HRS PRN PO MILD PAIN / TEMP > 100.3'F 06/25/21 20:15 07/02/21 08:01 Multi-Ingredient Ointment (Analgesic [place]) 1 mikhail PRN QID PRN TP MUSCLE PAIN 06/25/21 20:15 Al Hydroxide/Mg Hydroxide (Mylanta Plus Xs) 15 ml PRN AFTMEALHC PRN PO DYSPEPSIA 06/25/21 20:15 Magnesium Hydroxide (Milk Of Magnesia) 2,400 mg PRN QHS PRN PO CONSTIPATION 06/25/21 20:15 Nicotine (Nicoderm Cq 14mg Patch) 1 patch DAILY TD 06/25/21 21:00 07/03/21 09:20 Benztropine Mesylate (Cogentin) 1 mg BID PO 06/26/21 22:00 07/03/21 20:18 Bupropion HCl (Wellbutrin Xl) 150 mg DAILY PO 06/26/21 09:00 07/03/21 09:19 Divalproex Sodium (Depakote Er) 500 mg HS PO 06/26/21 21:00 06/27/21 18:00 DC 06/26/21 20:47 Donepezil HCl (Aricept) 10 mg DAILY PO 06/26/21 09:00 07/03/21 09:19 Memantine (Namenda) 5 mg DAILY PO 06/26/21 09:00 07/03/21 09:19 Mirtazapine (Remeron) 7.5 mg QHS PO 06/26/21 21:00 07/03/21 20:17 Paliperidone Palmitate (Invega Sustenna) 156 mg QMONTH IM 07/25/21 09:00 Risperidone (RisperDAL) 0.25 mg PRN DAILY PRN PO agitation 06/25/21 22:00 07/03/21 12:22 Trazodone HCl (Desyrel) 50 mg QHS PO 06/26/21 21:00 07/03/21 20:17 Fluphenazine HCl (Prolixin Oral Conc) 1 mg PRN BID PRN PO psychosis 06/25/21 22:15 07/02/21 13:26 Ondansetron HCl (Zofran Odt) 4 mg PRN Q6HRS PRN PO NAUSEA/VOMITING 06/26/21 14:00 06/26/21 15:20 Amlodipine Besylate (Norvasc) 2.5 mg DAILY PO 06/28/21 09:00 07/03/21 09:19 Atorvastatin Calcium (Lipitor) 10 mg QHS PO 06/27/21 21:00 07/03/21 20:17 Triamcinolone Acetonide (Kenalog) 1 mikhail PRN DAILY PRN TP rash in armpits 06/27/21 10:45 Artificial Tears (Refresh Classic) 1 drop QIDPRN PRN OU DRY EYE 06/27/21 11:00 07/02/21 07:58 Non-Formulary Medication (Carboxymethylcellulose Sodium (Lubricant Eye Drops)) 15 ml QID OP 06/27/21 13:00 06/27/21 10:50 DC Clobetasol Propionate 1 mikhail PRN BID PRN TP RASH 06/27/21 21:00 06/29/21 07:50 DC Pantoprazole Sodium (Protonix) 40 mg DAILY07 PO 06/28/21 07:00 07/03/21 09:18 Divalproex Sodium (Depakote Er) 1,000 mg HS PO 06/27/21 21:00 07/03/21 20:17 Penicillin G Benzathine (Bicillin L-A) 2,400,000 unit WEEKLY IM 06/29/21 09:00 07/13/21 09:01 06/29/21 09:02 Lactobacillus Rhamnosus (Culturelle) 1 cap BID PO 06/30/21 09:00 07/03/21 20:16 Risperidone (RisperDAL) 0.5 mg DAILY PO 06/30/21 17:15 07/01/21 16:59 DC 07/01/21 07:46 Risperidone (RisperDAL) 0.5 mg 0900,1700 PO 07/01/21 17:00 07/02/21 02:36 DC 07/01/21 17:30 Risperidone (RisperDAL) 1 mg 0900,1700 PO 07/02/21 09:00 07/03/21 17:20 Trazodone HCl (Desyrel) 25 mg 0900,1300,1700 PO 07/03/21 09:00 07/03/21 17:20 Trazodone HCl (Desyrel) 50 mg 1X ONCE PO 07/02/21 17:15 07/02/21 17:16 DC 07/02/21 17:29 Current Medications Medications (Trade) Dose Ordered Sig/Reny Route PRN Reason Start Time Stop Time Status Last Admin Dose Admin Trazodone HCl (Desyrel) 25 mg 0900,1300,1700 PO 07/03/21 09:00 07/03/21 17:20 I have reviewed the current psychotropics carefully including drug interactions. Risk benefit ratio favors no change other than as noted in my dictated progress note. Diagnosis: Problems: (1) Schizoaffective disorder, bipolar type (2) Impulse control disorder, unspecified (3) Anxiety disorder, unspecified (4) Bipolar disorder, current episode mixed, severe, with psychotic features (5) Major neurocognitive disorder JOHANNE LEONARDO MD Jul 03, 2021 21:40
[2021-07-04 06:34] VITALS: BP 117/79
[2021-07-04] MEDS: DONEPEZIL HCL 10 MG TABLET PO SCH (08:51)
[2021-07-04] MEDS: MEMANTINE 5 MG TABLET. PO SCH (08:51)
[2021-07-04] MEDS: BENZTROPINE MESYLATE 1 MG TABLET PO SCH ×2 (08:51→21:41)
[2021-07-04] MEDS: traZODone 50 MG TABLET. PO SCH ×4 (08:51→21:41)
[2021-07-04] MEDS: PANTOPRAZOLE 40 MG TABLET. PO SCH (08:51)
[2021-07-04] MEDS: buPROPion XL 150 MG TAB.ER.24H PO SCH (08:51)
[2021-07-04] MEDS: risperiDONE 0.5 MG TABLET. PO SCH ×2 (08:52→17:16)
[2021-07-04] MEDS: LACTOBACILLUS RHAMNOSUS GG 1 CAPSULE. PO SCH ×2 (08:52→21:41)
[2021-07-04] MEDS: amLODIPine BESYLATE 5 MG TABLET PO SCH (08:52)
[2021-07-04] MEDS: NICOTINE 14MG PATCH. TD SCH (08:53)
[2021-07-04 15:52] VITALS: BP 136/91
[2021-07-04] MEDS: DIVALPROEX ER 500 MG TAB.ER.24H PO SCH (21:40)
[2021-07-04] MEDS: ATORVASTATIN CALCIUM 10 MG TABLET. PO SCH (21:40)
[2021-07-04] MEDS: MIRTAZAPINE 15 MG TABLET PO SCH (21:41)
--- NOTE | 2021-07-04 22:21 | PDOC ---
Exam Note: Bj Note: Please also refer to the separate dictated note~for this date of service dictated separately.~Patient seen individually. Discussed the patient with Nursing staff reviewed the chart.~Reviewed interim history and current functioning. Reviewed vital signs,~Labs/ Radiology~and current medications noted below. Continue current treatment with the changes noted in the dictated addendum note Assessment: Vital Signs/I&O: Vital Signs Date Time Temp Pulse Resp B/P (MAP) Pulse Ox O2 Delivery O2 Flow Rate FiO2 07/04/21 15:52 97.6 72 20 136/91 (106) 99 07/02/21 00:45 Room Air I & O 07/03/21 07/03/21 07/04/21 15:00 23:00 07:00 Intake Total 360 ml 120 ml 120 ml Balance 360 ml 120 ml 120 ml Current Medications: Meds: Current Medications Medications (Trade) Dose Ordered Sig/Reny Route PRN Reason Start Time Stop Time Status Last Admin Dose Admin Acetaminophen (Tylenol) 650 mg PRN Q6HRS PRN PO MILD PAIN / TEMP > 100.3'F 06/25/21 20:15 07/02/21 08:01 Multi-Ingredient Ointment (Analgesic [place]) 1 mikhail PRN QID PRN TP MUSCLE PAIN 06/25/21 20:15 Al Hydroxide/Mg Hydroxide (Mylanta Plus Xs) 15 ml PRN AFTMEALHC PRN PO DYSPEPSIA 06/25/21 20:15 Magnesium Hydroxide (Milk Of Magnesia) 2,400 mg PRN QHS PRN PO CONSTIPATION 06/25/21 20:15 Nicotine (Nicoderm Cq 14mg Patch) 1 patch DAILY TD 06/25/21 21:00 07/04/21 08:53 Benztropine Mesylate (Cogentin) 1 mg BID PO 06/26/21 22:00 07/04/21 21:41 Bupropion HCl (Wellbutrin Xl) 150 mg DAILY PO 06/26/21 09:00 07/04/21 08:51 Divalproex Sodium (Depakote Er) 500 mg HS PO 06/26/21 21:00 06/27/21 18:00 DC 06/26/21 20:47 Donepezil HCl (Aricept) 10 mg DAILY PO 06/26/21 09:00 07/04/21 08:51 Memantine (Namenda) 5 mg DAILY PO 06/26/21 09:00 07/04/21 08:51 Mirtazapine (Remeron) 7.5 mg QHS PO 06/26/21 21:00 07/04/21 21:41 Paliperidone Palmitate (Invega Sustenna) 156 mg QMONTH IM 07/25/21 09:00 Risperidone (RisperDAL) 0.25 mg PRN DAILY PRN PO agitation 06/25/21 22:00 07/03/21 12:22 Trazodone HCl (Desyrel) 50 mg QHS PO 06/26/21 21:00 07/04/21 21:41 Fluphenazine HCl (Prolixin Oral Conc) 1 mg PRN BID PRN PO psychosis 06/25/21 22:15 07/02/21 13:26 Ondansetron HCl (Zofran Odt) 4 mg PRN Q6HRS PRN PO NAUSEA/VOMITING 06/26/21 14:00 06/26/21 15:20 Amlodipine Besylate (Norvasc) 2.5 mg DAILY PO 06/28/21 09:00 07/04/21 08:52 Atorvastatin Calcium (Lipitor) 10 mg QHS PO 06/27/21 21:00 07/04/21 21:40 Triamcinolone Acetonide (Kenalog) 1 mikahil PRN DAILY PRN TP rash in armpits 06/27/21 10:45 Artificial Tears (Refresh Classic) 1 drop QIDPRN PRN OU DRY EYE 06/27/21 11:00 07/02/21 07:58 Non-Formulary Medication (Carboxymethylcellulose Sodium (Lubricant Eye Drops)) 15 ml QID OP 06/27/21 13:00 06/27/21 10:50 DC Clobetasol Propionate 1 mikhail PRN BID PRN TP RASH 06/27/21 21:00 06/29/21 07:50 DC Pantoprazole Sodium (Protonix) 40 mg DAILY07 PO 06/28/21 07:00 07/04/21 08:51 Divalproex Sodium (Depakote Er) 1,000 mg HS PO 06/27/21 21:00 07/04/21 21:40 Penicillin G Benzathine (Bicillin L-A) 2,400,000 unit WEEKLY IM 06/29/21 09:00 07/13/21 09:01 06/29/21 09:02 Lactobacillus Rhamnosus (Culturelle) 1 cap BID PO 06/30/21 09:00 07/04/21 21:41 Risperidone (RisperDAL) 0.5 mg DAILY PO 06/30/21 17:15 07/01/21 16:59 DC 07/01/21 07:46 Risperidone (RisperDAL) 0.5 mg 0900,1700 PO 07/01/21 17:00 07/02/21 02:36 DC 07/01/21 17:30 Risperidone (RisperDAL) 1 mg 0900,1700 PO 07/02/21 09:00 07/04/21 17:16 Trazodone HCl (Desyrel) 25 mg 0900,1300,1700 PO 07/03/21 09:00 07/04/21 17:16 Trazodone HCl (Desyrel) 50 mg 1X ONCE PO 07/02/21 17:15 07/02/21 17:16 DC 07/02/21 17:29 I have reviewed the current psychotropics carefully including drug interactions. Risk benefit ratio favors no change other than as noted in my dictated progress note. Diagnosis: Problems: (1) Schizoaffective disorder, bipolar type (2) Impulse control disorder, unspecified (3) Anxiety disorder, unspecified (4) Bipolar disorder, current episode mixed, severe, with psychotic features (5) Major neurocognitive disorder JOHANNE LEONARDO MD Jul 04, 2021 22:21
[2021-07-05] MEDS: ONDANSETRON ODT 4 MG TAB.RAPDIS PO PRN (05:50)
[2021-07-05] MEDS: ACETAMINOPHEN 325 MG TABLET PO PRN (05:50)
[2021-07-05 06:12] VITALS: BP 113/67
[2021-07-05] MEDS: LACTOBACILLUS RHAMNOSUS GG 1 CAPSULE. PO SCH ×2 (09:26→20:29)
[2021-07-05] MEDS: traZODone 50 MG TABLET. PO SCH ×4 (09:26→20:27)
[2021-07-05] MEDS: amLODIPine BESYLATE 5 MG TABLET PO SCH (09:26)
[2021-07-05] MEDS: buPROPion XL 150 MG TAB.ER.24H PO SCH (09:27)
[2021-07-05] MEDS: MEMANTINE 5 MG TABLET. PO SCH (09:27)
[2021-07-05] MEDS: DONEPEZIL HCL 10 MG TABLET PO SCH (09:27)
[2021-07-05] MEDS: PANTOPRAZOLE 40 MG TABLET. PO SCH (09:27)
[2021-07-05] MEDS: BENZTROPINE MESYLATE 1 MG TABLET PO SCH ×2 (09:27→20:28)
[2021-07-05] MEDS: risperiDONE 0.5 MG TABLET. PO SCH ×2 (09:27→17:15)
[2021-07-05] MEDS: NICOTINE 14MG PATCH. TD SCH (09:28)
--- NOTE | 2021-07-05 10:29 | PDOC ---
Exam Note: Bj Note: This note is a late entry for 07/03/2021 covers elements not covered in my initial note. Subjective: The patient was reviewed at treatment team meeting individually in the morning on 07/03/2021 with Yuliana Cespedes and Onelia Fortune (social services analyst), Susi, activity therapy, and Abhi SUAZO, discussed and reviewed the chart. Discussed the patients diagnoses, progress, placement options at length. The patient slept 7 hours previous night. Average sleep 6-1/2 hours. Appetite 80%. There is a history of head injury and he continues to complain of recurrent headaches. We will check CT head. He is also hard of hearing. We will encourage him to use a pocket talker. He has vague somatic symptoms including abdominal protrusion. We will defer to Dr. Ann. He remains on penicillin for Syphilis. Reviewed his past history at length including substance abuse and times he was picked up by the police while he was at a store trying to find a female transportation technician. He remains somewhat obsessive asking about whether he had AIDS. He gets agitated intermittently and I addressed this with him individually. Review of Systems: Hard of hearing. No CV, , pulmonary, eye system symptoms on review. Reliability poor. Abdominal pain as above. Mental Status Exam: Patient is oriented to himself and situation. I met with him outside his room. Speech can be loud. Abstraction fair. Computation impaired. Language function intact. Mood and affect anxious. No suicidal or homicidal ideation. Laboratory Data: Reviewed. Impression: Schizoaffective disorder, bipolar type, mixed with psychotic features. Mild cognitive impairment versus major neurocognitive disorder, unspecified. Anxiety disorder unspecified. Impulse control disorder unspecified. Plan: Continue psychotropics from initial note. Reviewed drug interactions, risk-benefit ratio. Adjust Depakote to reach therapeutic level. Last check level was 62 therapeutic. We will make further adjustments as clinically indicated. Assessment: Vital Signs/I&O: Vital Signs Date Time Temp Pulse Resp B/P (MAP) Pulse Ox O2 Delivery O2 Flow Rate FiO2 07/05/21 09:26 71 113/67 07/05/21 06:12 97.6 16 99 07/02/21 00:45 Room Air I & O 07/04/21 07/04/21 07/05/21 14:59 22:59 06:59 Intake Total 600 ml 360 ml Balance 600 ml 360 ml Current Medications: I have reviewed the current psychotropics carefully including drug interactions. Risk benefit ratio favors no change other than as noted in my dictated progress note. Diagnosis: Problems: (1) Schizoaffective disorder, bipolar type (2) Impulse control disorder, unspecified (3) Anxiety disorder, unspecified (4) Bipolar disorder, current episode mixed, severe, with psychotic features (5) Major neurocognitive disorder JOHANNE LEONARDO MD Jul 05, 2021 10:29
[2021-07-05 16:36] VITALS: BP 132/80
[2021-07-05] MEDS: MIRTAZAPINE 15 MG TABLET PO SCH (20:27)
[2021-07-05] MEDS: ATORVASTATIN CALCIUM 10 MG TABLET. PO SCH (20:28)
[2021-07-05] MEDS: DIVALPROEX ER 500 MG TAB.ER.24H PO SCH (20:29)
--- NOTE | 2021-07-05 22:06 | PDOC ---
Exam Note: Bj Note: Please also refer to the separate dictated note~for this date of service dictated separately.~Patient seen individually. Discussed the patient with Nursing staff reviewed the chart.~Reviewed interim history and current functioning. Reviewed vital signs,~Labs/ Radiology~and current medications noted below. Continue current treatment with the changes noted in the dictated addendum note Assessment: Vital Signs/I&O: Vital Signs Date Time Temp Pulse Resp B/P (MAP) Pulse Ox O2 Delivery O2 Flow Rate FiO2 07/05/21 16:36 98.2 75 16 132/80 (97) 100 07/02/21 00:45 Room Air I & O 07/04/21 07/04/21 07/05/21 15:00 23:00 07:00 Intake Total 600 ml 360 ml Balance 600 ml 360 ml Current Medications: Meds: Current Medications Medications (Trade) Dose Ordered Sig/Reny Route PRN Reason Start Time Stop Time Status Last Admin Dose Admin Acetaminophen (Tylenol) 650 mg PRN Q6HRS PRN PO MILD PAIN / TEMP > 100.3'F 06/25/21 20:15 07/05/21 05:50 Multi-Ingredient Ointment (Analgesic [place]) 1 mikhail PRN QID PRN TP MUSCLE PAIN 06/25/21 20:15 07/05/21 21:53 Al Hydroxide/Mg Hydroxide (Mylanta Plus Xs) 15 ml PRN AFTMEALHC PRN PO DYSPEPSIA 06/25/21 20:15 Magnesium Hydroxide (Milk Of Magnesia) 2,400 mg PRN QHS PRN PO CONSTIPATION 06/25/21 20:15 07/05/21 20:27 Nicotine (Nicoderm Cq 14mg Patch) 1 patch DAILY TD 06/25/21 21:00 07/05/21 09:28 Benztropine Mesylate (Cogentin) 1 mg BID PO 06/26/21 22:00 07/05/21 20:28 Bupropion HCl (Wellbutrin Xl) 150 mg DAILY PO 06/26/21 09:00 07/05/21 09:27 Divalproex Sodium (Depakote Er) 500 mg HS PO 06/26/21 21:00 06/27/21 18:00 DC 06/26/21 20:47 Donepezil HCl (Aricept) 10 mg DAILY PO 06/26/21 09:00 07/05/21 09:27 Memantine (Namenda) 5 mg DAILY PO 06/26/21 09:00 07/05/21 09:27 Mirtazapine (Remeron) 7.5 mg QHS PO 06/26/21 21:00 07/05/21 20:27 Paliperidone Palmitate (Invega Sustenna) 156 mg QMONTH IM 07/25/21 09:00 Risperidone (RisperDAL) 0.25 mg PRN DAILY PRN PO agitation 06/25/21 22:00 07/03/21 12:22 Trazodone HCl (Desyrel) 50 mg QHS PO 06/26/21 21:00 07/05/21 20:27 Fluphenazine HCl (Prolixin Oral Conc) 1 mg PRN BID PRN PO psychosis 06/25/21 22:15 07/02/21 13:26 Ondansetron HCl (Zofran Odt) 4 mg PRN Q6HRS PRN PO NAUSEA/VOMITING 06/26/21 14:00 07/05/21 05:50 Amlodipine Besylate (Norvasc) 2.5 mg DAILY PO 06/28/21 09:00 07/05/21 09:26 Atorvastatin Calcium (Lipitor) 10 mg QHS PO 06/27/21 21:00 07/05/21 20:28 Triamcinolone Acetonide (Kenalog) 1 mikhail PRN DAILY PRN TP rash in armpits 06/27/21 10:45 Artificial Tears (Refresh Classic) 1 drop QIDPRN PRN OU DRY EYE 06/27/21 11:00 07/02/21 07:58 Non-Formulary Medication (Carboxymethylcellulose Sodium (Lubricant Eye Drops)) 15 ml QID OP 06/27/21 13:00 06/27/21 10:50 DC Clobetasol Propionate 1 mikhail PRN BID PRN TP RASH 06/27/21 21:00 06/29/21 07:50 DC Pantoprazole Sodium (Protonix) 40 mg DAILY07 PO 06/28/21 07:00 07/05/21 09:27 Divalproex Sodium (Depakote Er) 1,000 mg HS PO 06/27/21 21:00 07/05/21 20:29 Penicillin G Benzathine (Bicillin L-A) 2,400,000 unit WEEKLY IM 06/29/21 09:00 07/13/21 09:01 06/29/21 09:02 Lactobacillus Rhamnosus (Culturelle) 1 cap BID PO 06/30/21 09:00 07/05/21 20:29 Risperidone (RisperDAL) 0.5 mg DAILY PO 06/30/21 17:15 07/01/21 16:59 DC 07/01/21 07:46 Risperidone (RisperDAL) 0.5 mg 0900,1700 PO 07/01/21 17:00 07/02/21 02:36 DC 07/01/21 17:30 Risperidone (RisperDAL) 1 mg 0900,1700 PO 07/02/21 09:00 07/05/21 17:15 Trazodone HCl (Desyrel) 25 mg 0900,1300,1700 PO 07/03/21 09:00 07/05/21 17:15 Trazodone HCl (Desyrel) 50 mg 1X ONCE PO 07/02/21 17:15 07/02/21 17:16 DC 07/02/21 17:29 I have reviewed the current psychotropics carefully including drug interactions. Risk benefit ratio favors no change other than as noted in my dictated progress note. Diagnosis: Problems: (1) Schizoaffective disorder, bipolar type (2) Impulse control disorder, unspecified (3) Anxiety disorder, unspecified (4) Bipolar disorder, current episode mixed, severe, with psychotic features (5) Major neurocognitive disorder JOHANNE LEONARDO MD Jul 05, 2021 22:06
[2021-07-06 07:01] VITALS: BP 129/80
--- NOTE | 2021-07-06 08:31 | PDOC ---
Exam Note: Bj Note: This note is a late entry for 07/04/2021 covers elements not covered in my initial note. Subjective: The patient was seen individually on 07/04/2021, discussed and reviewed the chart with Abhi SUAZO. The patient slept 6-1/4 hours previous night. The patient has been somewhat obsessive and is fixated on wanting a shave and a shower, somewhat withdrawn. He states he likes jazz music and nursing staff put it on for him. Review of Systems: Hard of hearing. No CV, , pulmonary, eye system symptoms on review. Reliability poor. Positive for headaches and some constipation. We will address this symptomatically. He has vague somatic symptoms, remains obsessive about his AIDS, attempted to answer some questions for him. Mental Status Exam: Patient is oriented to himself and situation. Speech coherent. Abstraction fair. Computation impaired. Language function intact. Mood and affect anxious. No suicidal or homicidal ideation. Laboratory Data: Reviewed. Impression: Schizoaffective disorder, bipolar type, mixed with psychotic features. Mild cognitive impairment versus major neurocognitive disorder, unspecified. Anxiety disorder unspecified. Impulse control disorder unspecified. Plan: Continue psychotropics from initial note. Reviewed drug interactions, risk-benefit ratio. Assessment: Vital Signs/I&O: Vital Signs Date Time Temp Pulse Resp B/P (MAP) Pulse Ox O2 Delivery O2 Flow Rate FiO2 07/06/21 07:01 98.0 77 18 129/80 (96) 99 Room Air I & O 07/05/21 07/05/21 07/06/21 15:00 23:00 07:00 Intake Total 480 ml 720 ml Balance 480 ml 720 ml Current Medications: I have reviewed the current psychotropics carefully including drug interactions. Risk benefit ratio favors no change other than as noted in my dictated progress note. Diagnosis: Problems: (1) Schizoaffective disorder, bipolar type (2) Impulse control disorder, unspecified (3) Anxiety disorder, unspecified (4) Bipolar disorder, current episode mixed, severe, with psychotic features (5) Major neurocognitive disorder JOHANNE LEONARDO MD Jul 06, 2021 08:31
[2021-07-06] MEDS: NICOTINE 14MG PATCH. TD SCH (08:56)
[2021-07-06] MEDS: BENZTROPINE MESYLATE 1 MG TABLET PO SCH ×2 (08:57→21:03)
[2021-07-06] MEDS: DONEPEZIL HCL 10 MG TABLET PO SCH (08:57)
[2021-07-06] MEDS: traZODone 50 MG TABLET. PO SCH ×4 (08:57→21:03)
[2021-07-06] MEDS: PANTOPRAZOLE 40 MG TABLET. PO SCH (08:57)
[2021-07-06] MEDS: risperiDONE 0.5 MG TABLET. PO SCH ×2 (08:57→17:29)
[2021-07-06] MEDS: amLODIPine BESYLATE 5 MG TABLET PO SCH (08:57)
[2021-07-06] MEDS: MEMANTINE 5 MG TABLET. PO SCH (08:57)
[2021-07-06] MEDS: buPROPion XL 150 MG TAB.ER.24H PO SCH (08:57)
[2021-07-06] MEDS: PENICILLIN G BENZATHINE LA 1,200,000 UNIT/2 ML DISP.SYRIN. IM SCH (08:58)
[2021-07-06] MEDS: LACTOBACILLUS RHAMNOSUS GG 1 CAPSULE. PO SCH ×2 (09:03→21:04)
[2021-07-06] MEDS: ACETAMINOPHEN 325 MG TABLET PO PRN (12:20)
[2021-07-06 15:57] VITALS: BP 120/78
[2021-07-06] MEDS: DIVALPROEX ER 500 MG TAB.ER.24H PO SCH (21:04)
[2021-07-06] MEDS: ATORVASTATIN CALCIUM 10 MG TABLET. PO SCH (21:04)
[2021-07-06] MEDS: MIRTAZAPINE 7.5 MG TABLET. PO SCH (21:05)
--- NOTE | 2021-07-06 22:12 | PDOC ---
Exam Note: Bj Note: Please also refer to the separate dictated note~for this date of service dictated separately.~Patient seen individually. Discussed the patient with Nursing staff reviewed the chart.~Reviewed interim history and current functioning. Reviewed vital signs,~Labs/ Radiology~and current medications noted below. Continue current treatment with the changes noted in the dictated addendum note Assessment: Vital Signs/I&O: Vital Signs Date Time Temp Pulse Resp B/P (MAP) Pulse Ox O2 Delivery O2 Flow Rate FiO2 07/06/21 15:57 97.9 63 18 120/78 (92) 97 07/06/21 07:01 Room Air I & O 07/05/21 07/05/21 07/06/21 15:00 23:00 07:00 Intake Total 480 ml 720 ml Balance 480 ml 720 ml Current Medications: Meds: Current Medications Medications (Trade) Dose Ordered Sig/Reny Route PRN Reason Start Time Stop Time Status Last Admin Dose Admin Acetaminophen (Tylenol) 650 mg PRN Q6HRS PRN PO MILD PAIN / TEMP > 100.3'F 06/25/21 20:15 07/06/21 12:20 Multi-Ingredient Ointment (Analgesic [place]) 1 mikhail PRN QID PRN TP MUSCLE PAIN 06/25/21 20:15 07/05/21 21:53 Al Hydroxide/Mg Hydroxide (Mylanta Plus Xs) 15 ml PRN AFTMEALHC PRN PO DYSPEPSIA 06/25/21 20:15 Magnesium Hydroxide (Milk Of Magnesia) 2,400 mg PRN QHS PRN PO CONSTIPATION 06/25/21 20:15 07/05/21 20:27 Nicotine (Nicoderm Cq 14mg Patch) 1 patch DAILY TD 06/25/21 21:00 07/06/21 08:56 Benztropine Mesylate (Cogentin) 1 mg BID PO 06/26/21 22:00 07/06/21 21:03 Bupropion HCl (Wellbutrin Xl) 150 mg DAILY PO 06/26/21 09:00 07/06/21 08:57 Divalproex Sodium (Depakote Er) 500 mg HS PO 06/26/21 21:00 06/27/21 18:00 DC 06/26/21 20:47 Donepezil HCl (Aricept) 10 mg DAILY PO 06/26/21 09:00 07/06/21 08:57 Memantine (Namenda) 5 mg DAILY PO 06/26/21 09:00 07/06/21 08:57 Mirtazapine (Remeron) 7.5 mg QHS PO 06/26/21 21:00 07/05/21 23:55 DC 07/05/21 20:27 Paliperidone Palmitate (Invega Sustenna) 156 mg QMONTH IM 07/25/21 09:00 Risperidone (RisperDAL) 0.25 mg PRN DAILY PRN PO agitation 06/25/21 22:00 07/03/21 12:22 Trazodone HCl (Desyrel) 50 mg QHS PO 06/26/21 21:00 07/06/21 21:03 Fluphenazine HCl (Prolixin Oral Conc) 1 mg PRN BID PRN PO psychosis 06/25/21 22:15 07/02/21 13:26 Ondansetron HCl (Zofran Odt) 4 mg PRN Q6HRS PRN PO NAUSEA/VOMITING 06/26/21 14:00 07/05/21 05:50 Amlodipine Besylate (Norvasc) 2.5 mg DAILY PO 06/28/21 09:00 07/06/21 08:57 Atorvastatin Calcium (Lipitor) 10 mg QHS PO 06/27/21 21:00 07/06/21 21:04 Triamcinolone Acetonide (Kenalog) 1 mikhail PRN DAILY PRN TP rash in armpits 06/27/21 10:45 Artificial Tears (Refresh Classic) 1 drop QIDPRN PRN OU DRY EYE 06/27/21 11:00 07/02/21 07:58 Non-Formulary Medication (Carboxymethylcellulose Sodium (Lubricant Eye Drops)) 15 ml QID OP 06/27/21 13:00 06/27/21 10:50 DC Clobetasol Propionate 1 mikhail PRN BID PRN TP RASH 06/27/21 21:00 06/29/21 07:50 DC Pantoprazole Sodium (Protonix) 40 mg DAILY07 PO 06/28/21 07:00 07/06/21 08:57 Divalproex Sodium (Depakote Er) 1,000 mg HS PO 06/27/21 21:00 07/06/21 21:04 Penicillin G Benzathine (Bicillin L-A) 2,400,000 unit WEEKLY IM 06/29/21 09:00 07/13/21 09:01 07/06/21 08:58 Lactobacillus Rhamnosus (Culturelle) 1 cap BID PO 06/30/21 09:00 07/06/21 21:04 Risperidone (RisperDAL) 0.5 mg DAILY PO 06/30/21 17:15 07/01/21 16:59 DC 07/01/21 07:46 Risperidone (RisperDAL) 0.5 mg 0900,1700 PO 07/01/21 17:00 07/02/21 02:36 DC 07/01/21 17:30 Risperidone (RisperDAL) 1 mg 0900,1700 PO 07/02/21 09:00 07/06/21 17:29 Trazodone HCl (Desyrel) 25 mg 0900,1300,1700 PO 07/03/21 09:00 07/06/21 17:31 Trazodone HCl (Desyrel) 50 mg 1X ONCE PO 07/02/21 17:15 07/02/21 17:16 DC 07/02/21 17:29 Mirtazapine (Remeron) 7.5 mg QHS PO 07/06/21 21:00 07/06/21 21:05 Current Medications Medications (Trade) Dose Ordered Sig/Reny Route PRN Reason Start Time Stop Time Status Last Admin Dose Admin Mirtazapine (Remeron) 7.5 mg QHS PO 07/06/21 21:00 07/06/21 21:05 I have reviewed the current psychotropics carefully including drug interactions. Risk benefit ratio favors no change other than as noted in my dictated progress note. Diagnosis: Problems: (1) Schizoaffective disorder, bipolar type (2) Impulse control disorder, unspecified (3) Anxiety disorder, unspecified (4) Bipolar disorder, current episode mixed, severe, with psychotic features (5) Major neurocognitive disorder JOHANNE LEONARDO MD Jul 06, 2021 22:12
[2021-07-07 06:49] VITALS: BP 120/72
[2021-07-07 07:33] LABS: ALBUMIN 2.8 g/dL (3.4-5.0); ALBUMIN/GLOBULIN RATIO 0.7 (1.0-1.7); ALK PHOS 71 U/L (46-116); ALT (SGPT) 17 U/L (16-63); ANION GAP 7 (6-14); AST (SGOT) 13 U/L (15-37); BLOOD UREA NITROGEN 11 mg/dL (8-26); BUN/CREATININE RATIO 14 (6-20); CALCIUM 8.7 mg/dL (8.5-10.1); CARBON DIOXIDE 29 mmol/L (21-32); CHLORIDE 103 mmol/L (98-107); CREATININE 0.8 mg/dL (0.7-1.3); GFR 117.4; GLUCOSE 82 mg/dL (70-99); POTASSIUM 4.7 mmol/L (3.5-5.1); SODIUM 139 mmol/L (136-145); TOTAL BILIRUBIN 0.4 mg/dL (0.2-1.0); TOTAL PROTEIN 6.9 g/dL (6.4-8.2)
[2021-07-07 07:50] LABS: VAL ACID 60 mcg/mL (50-100)
--- NOTE | 2021-07-07 08:47 | PDOC ---
Exam Note: Bj Note: This note is a late entry for 07/05/2021 covers elements not covered in my initial note. Subjective: The patient was seen individually on 07/05/2021, discussed and reviewed the chart with Otis SUAZO. The patient slept 6 hours previous night. He stays much of the time in his room. He does complain of headache and nausea. Received Tylenol and Zofran in the morning and has not had bowel movement for some time. He was started on milk of magnesium h.s. and we will check labs in the morning. Review of Systems: He is somatically preoccupied, quite obsessive, anxious. He complains of headache and abdominal pain. No CV, , pulmonary, eye system symptoms on review. Reliability poor. Mental Status Exam: Patient is oriented to himself and situation. Speech coherent. Abstraction fair. Computation impaired. Language function intact. Mood and affect anxious. No suicidal or homicidal ideation. Laboratory Data: Reviewed. Impression: Schizoaffective disorder, bipolar type, mixed with psychotic features. Mild cognitive impairment versus major neurocognitive disorder, unspecified. Anxiety disorder unspecified. Impulse control disorder unspecified. Plan: Continue psychotropics from initial note and Depakote at the current dosage, level is therapeutic. Adjust as clinically indicated. Reviewed drug interactions, risk-benefit ratio. Assessment: Vital Signs/I&O: Vital Signs Date Time Temp Pulse Resp B/P (MAP) Pulse Ox O2 Delivery O2 Flow Rate FiO2 07/07/21 06:49 98.3 67 18 120/72 (88) 98 07/06/21 07:01 Room Air I & O 07/06/21 07/06/21 07/07/21 15:00 23:00 07:00 Intake Total 240 ml 200 ml 120 ml Balance 240 ml 200 ml 120 ml Labs: Laboratory Tests Test 07/07/21 06:49 Sodium Level 139 mmol/L (136-145) Potassium Level 4.7 mmol/L (3.5-5.1) Chloride Level 103 mmol/L (98-107) Carbon Dioxide Level 29 mmol/L (21-32) Anion Gap 7 (6-14) Blood Urea Nitrogen 11 mg/dL (8-26) Creatinine 0.8 mg/dL (0.7-1.3) Estimated GFR (Cockcroft-Gault) 117.4 BUN/Creatinine Ratio 14 (6-20) Glucose Level 82 mg/dL (70-99) Calcium Level 8.7 mg/dL (8.5-10.1) Total Bilirubin 0.4 mg/dL (0.2-1.0) Aspartate Amino Transferase (AST) 13 U/L (15-37) L Alanine Aminotransferase (ALT) 17 U/L (16-63) Alkaline Phosphatase 71 U/L (46-116) Total Protein 6.9 g/dL (6.4-8.2) Albumin 2.8 g/dL (3.4-5.0) L Albumin/Globulin Ratio 0.7 (1.0-1.7) L Valproic Acid Level 60 mcg/mL (50-100) Valproic Acid Last Dose Date 07/06/21 Valproic Acid Last Dose Time 2100 Current Medications: Meds: Current Medications Medications (Trade) Dose Ordered Sig/Reny Route PRN Reason Start Time Stop Time Status Last Admin Dose Admin Mirtazapine (Remeron) 7.5 mg QHS PO 07/06/21 21:00 07/06/21 21:05 I have reviewed the current psychotropics carefully including drug interactions. Risk benefit ratio favors no change other than as noted in my dictated progress note. Diagnosis: Problems: (1) Schizoaffective disorder, bipolar type (2) Impulse control disorder, unspecified (3) Anxiety disorder, unspecified (4) Bipolar disorder, current episode mixed, severe, with psychotic features (5) Major neurocognitive disorder JOHANNE LEONARDO MD Jul 07, 2021 08:47
[2021-07-07 08:55] LABS: BASO % 1 % (0-3); EOS % 0 % (0-3); HEMATOCRIT 39.1 % (39.0-53.0); HEMOGLOBIN 12.4 g/dL (13.0-17.5); LYMPH # 2.5 x10^3/uL (1.0-4.8); LYMPH % 43 % (24-48); MEAN CORPUSCULAR HEMOGLOBIN 28 pg (25-35); MEAN CORPUSCULAR HGB CONC 32 g/dL (31-37); MEAN CORPUSCULAR VOLUME 88 fL (79-100); MONO # 0.7 x10^3/uL (0.0-1.1); MONO % 13 % (0-9); NEUT # 2.5 x10^3uL (1.8-7.7); NEUT % 43 % (31-73); PLATELET COUNT 183 x10^3/uL (140-400); RED BLOOD COUNT 4.45 x10^6/uL (4.30-5.70); RED CELL DISTRIBUTION WIDTH 14.7 % (11.5-14.5); WHITE BLOOD COUNT 5.7 x10^3/uL (4.0-11.0)
--- NOTE | 2021-07-07 09:06 | PDOC ---
Exam Note: Bj Note: This note is a late entry for 07/06/2021 covers elements not covered in my initial note. Subjective: The patient was seen individually on 07/06/2021, discussed and reviewed the chart with Otis SUAZO. The patient slept 6-1/4 hours previous night. The patient has been somatic, quite anxious, obsessive. Review of Systems: No CV, , pulmonary, eye system symptoms on review. Hard of hearing. Mental Status Exam: Patient is oriented to himself and situation. Abstraction fair. Computation impaired. Language function intact. Mood and affect remains intermittently labile. No suicidal or homicidal ideation. Laboratory Data: Reviewed. Impression: Schizoaffective disorder, bipolar type, mixed with psychotic features. Mild cognitive impairment versus major neurocognitive disorder, unspecified. Anxiety disorder unspecified. Impulse control disorder unspecified. Plan: Continue psychotropics from initial note. Reviewed drug interactions, risk-benefit ratio. Assessment: Vital Signs/I&O: Vital Signs Date Time Temp Pulse Resp B/P (MAP) Pulse Ox O2 Delivery O2 Flow Rate FiO2 07/07/21 06:49 98.3 67 18 120/72 (88) 98 07/06/21 07:01 Room Air I & O 07/06/21 07/06/21 07/07/21 15:00 23:00 07:00 Intake Total 240 ml 200 ml 120 ml Balance 240 ml 200 ml 120 ml Labs: Laboratory Tests Test 07/07/21 06:49 Sodium Level 139 mmol/L (136-145) Potassium Level 4.7 mmol/L (3.5-5.1) Chloride Level 103 mmol/L (98-107) Carbon Dioxide Level 29 mmol/L (21-32) Anion Gap 7 (6-14) Blood Urea Nitrogen 11 mg/dL (8-26) Creatinine 0.8 mg/dL (0.7-1.3) Estimated GFR (Cockcroft-Gault) 117.4 BUN/Creatinine Ratio 14 (6-20) Glucose Level 82 mg/dL (70-99) Calcium Level 8.7 mg/dL (8.5-10.1) Total Bilirubin 0.4 mg/dL (0.2-1.0) Aspartate Amino Transferase (AST) 13 U/L (15-37) L Alanine Aminotransferase (ALT) 17 U/L (16-63) Alkaline Phosphatase 71 U/L (46-116) Total Protein 6.9 g/dL (6.4-8.2) Albumin 2.8 g/dL (3.4-5.0) L Albumin/Globulin Ratio 0.7 (1.0-1.7) L Valproic Acid Level 60 mcg/mL (50-100) Valproic Acid Last Dose Date 07/06/21 Valproic Acid Last Dose Time 2100 Current Medications: Meds: Current Medications Medications (Trade) Dose Ordered Sig/Reny Route PRN Reason Start Time Stop Time Status Last Admin Dose Admin Mirtazapine (Remeron) 7.5 mg QHS PO 07/06/21 21:00 07/06/21 21:05 I have reviewed the current psychotropics carefully including drug interactions. Risk benefit ratio favors no change other than as noted in my dictated progress note. Diagnosis: Problems: (1) Schizoaffective disorder, bipolar type (2) Impulse control disorder, unspecified (3) Anxiety disorder, unspecified (4) Bipolar disorder, current episode mixed, severe, with psychotic features (5) Major neurocognitive disorder JOHANNE LEONARDO MD Jul 07, 2021 09:06
[2021-07-07] MEDS: risperiDONE 0.5 MG TABLET. PO SCH ×2 (09:29→17:13)
[2021-07-07] MEDS: PANTOPRAZOLE 40 MG TABLET. PO SCH (09:30)
[2021-07-07] MEDS: DONEPEZIL HCL 10 MG TABLET PO SCH (09:30)
[2021-07-07] MEDS: traZODone 50 MG TABLET. PO SCH ×4 (09:30→20:08)
[2021-07-07] MEDS: LACTOBACILLUS RHAMNOSUS GG 1 CAPSULE. PO SCH ×2 (09:30→20:08)
[2021-07-07] MEDS: MEMANTINE 5 MG TABLET. PO SCH (09:30)
[2021-07-07] MEDS: BENZTROPINE MESYLATE 1 MG TABLET PO SCH ×2 (09:30→20:09)
[2021-07-07] MEDS: amLODIPine BESYLATE 5 MG TABLET PO SCH (09:30)
[2021-07-07] MEDS: NICOTINE 14MG PATCH. TD SCH (09:31)
[2021-07-07 16:03] VITALS: BP 118/75
[2021-07-07] MEDS: DIVALPROEX ER 500 MG TAB.ER.24H PO SCH (20:08)
[2021-07-07] MEDS: ATORVASTATIN CALCIUM 10 MG TABLET. PO SCH (20:09)
[2021-07-07] MEDS: MIRTAZAPINE 7.5 MG TABLET. PO SCH (20:09)
--- NOTE | 2021-07-07 21:58 | PDOC ---
Exam Note: Bj Note: Please also refer to the separate dictated note~for this date of service dictated separately.~Patient seen individually. Discussed the patient with Nursing staff reviewed the chart.~Reviewed interim history and current functioning. Reviewed vital signs,~Labs/ Radiology~and current medications noted below. Continue current treatment with the changes noted in the dictated addendum note Assessment: Vital Signs/I&O: Vital Signs Date Time Temp Pulse Resp B/P (MAP) Pulse Ox O2 Delivery O2 Flow Rate FiO2 07/07/21 16:03 97.9 75 16 118/75 (89) 100 07/06/21 07:01 Room Air I & O 07/06/21 07/06/21 07/07/21 15:00 23:00 07:00 Intake Total 240 ml 200 ml 120 ml Balance 240 ml 200 ml 120 ml Labs: Laboratory Tests Test 07/07/21 06:49 White Blood Count 5.7 x10^3/uL (4.0-11.0) Red Blood Count 4.45 x10^6/uL (4.30-5.70) Hemoglobin 12.4 g/dL (13.0-17.5) L Hematocrit 39.1 % (39.0-53.0) Mean Corpuscular Volume 88 fL (79-100) Mean Corpuscular Hemoglobin 28 pg (25-35) Mean Corpuscular Hemoglobin Concent 32 g/dL (31-37) Red Cell Distribution Width 14.7 % (11.5-14.5) H Platelet Count 183 x10^3/uL (140-400) Neutrophils (%) (Auto) 43 % (31-73) Lymphocytes (%) (Auto) 43 % (24-48) Monocytes (%) (Auto) 13 % (0-9) H Eosinophils (%) (Auto) 0 % (0-3) Basophils (%) (Auto) 1 % (0-3) Neutrophils # (Auto) 2.5 x10^3uL (1.8-7.7) Lymphocytes # (Auto) 2.5 x10^3/uL (1.0-4.8) Monocytes # (Auto) 0.7 x10^3/uL (0.0-1.1) Eosinophils # (Auto) 0.0 x10^3/uL (0.0-0.7) Basophils # (Auto) 0.0 x10^3/uL (0.0-0.2) Sodium Level 139 mmol/L (136-145) Potassium Level 4.7 mmol/L (3.5-5.1) Chloride Level 103 mmol/L (98-107) Carbon Dioxide Level 29 mmol/L (21-32) Anion Gap 7 (6-14) Blood Urea Nitrogen 11 mg/dL (8-26) Creatinine 0.8 mg/dL (0.7-1.3) Estimated GFR (Cockcroft-Gault) 117.4 BUN/Creatinine Ratio 14 (6-20) Glucose Level 82 mg/dL (70-99) Calcium Level 8.7 mg/dL (8.5-10.1) Total Bilirubin 0.4 mg/dL (0.2-1.0) Aspartate Amino Transferase (AST) 13 U/L (15-37) L Alanine Aminotransferase (ALT) 17 U/L (16-63) Alkaline Phosphatase 71 U/L (46-116) Total Protein 6.9 g/dL (6.4-8.2) Albumin 2.8 g/dL (3.4-5.0) L Albumin/Globulin Ratio 0.7 (1.0-1.7) L Valproic Acid Level 60 mcg/mL (50-100) Valproic Acid Last Dose Date 07/06/21 Valproic Acid Last Dose Time 2100 Current Medications: Meds: Laboratory Tests Test 07/07/21 06:49 White Blood Count 5.7 x10^3/uL Red Blood Count 4.45 x10^6/uL Hemoglobin 12.4 g/dL Hematocrit 39.1 % Mean Corpuscular Volume 88 fL Mean Corpuscular Hemoglobin 28 pg Mean Corpuscular Hemoglobin Concent 32 g/dL Red Cell Distribution Width 14.7 % Platelet Count 183 x10^3/uL Neutrophils (%) (Auto) 43 % Lymphocytes (%) (Auto) 43 % Monocytes (%) (Auto) 13 % Eosinophils (%) (Auto) 0 % Basophils (%) (Auto) 1 % Neutrophils # (Auto) 2.5 x10^3uL Lymphocytes # (Auto) 2.5 x10^3/uL Monocytes # (Auto) 0.7 x10^3/uL Eosinophils # (Auto) 0.0 x10^3/uL Basophils # (Auto) 0.0 x10^3/uL Sodium Level 139 mmol/L Potassium Level 4.7 mmol/L Chloride Level 103 mmol/L Carbon Dioxide Level 29 mmol/L Anion Gap 7 Blood Urea Nitrogen 11 mg/dL Creatinine 0.8 mg/dL Estimated GFR (Cockcroft-Gault) 117.4 BUN/Creatinine Ratio 14 Glucose Level 82 mg/dL Calcium Level 8.7 mg/dL Total Bilirubin 0.4 mg/dL Aspartate Amino Transf (AST/SGOT) 13 U/L Alanine Aminotransferase (ALT/SGPT) 17 U/L Alkaline Phosphatase 71 U/L Total Protein 6.9 g/dL Albumin 2.8 g/dL Albumin/Globulin Ratio 0.7 Valproic Acid (Depakene) Level 60 mcg/mL Valproic Acid Last Dose Date 07/06/21 Valproic Acid Last Dose Time 2100 Current Medications Medications (Trade) Dose Ordered Sig/Reny Route PRN Reason Start Time Stop Time Status Last Admin Dose Admin Acetaminophen (Tylenol) 650 mg PRN Q6HRS PRN PO MILD PAIN / TEMP > 100.3'F 06/25/21 20:15 07/06/21 12:20 Multi-Ingredient Ointment (Analgesic [place]) 1 mikhail PRN QID PRN TP MUSCLE PAIN 06/25/21 20:15 07/05/21 21:53 Al Hydroxide/Mg Hydroxide (Mylanta Plus Xs) 15 ml PRN AFTMEALHC PRN PO DYSPEPSIA 06/25/21 20:15 Magnesium Hydroxide (Milk Of Magnesia) 2,400 mg PRN QHS PRN PO CONSTIPATION 06/25/21 20:15 07/05/21 20:27 Nicotine (Nicoderm Cq 14mg Patch) 1 patch DAILY TD 06/25/21 21:00 07/07/21 09:31 Benztropine Mesylate (Cogentin) 1 mg BID PO 06/26/21 22:00 07/07/21 20:09 Bupropion HCl (Wellbutrin Xl) 150 mg DAILY PO 06/26/21 09:00 07/07/21 02:18 DC 07/06/21 08:57 Divalproex Sodium (Depakote Er) 500 mg HS PO 06/26/21 21:00 06/27/21 18:00 DC 06/26/21 20:47 Donepezil HCl (Aricept) 10 mg DAILY PO 06/26/21 09:00 07/07/21 09:30 Memantine (Namenda) 5 mg DAILY PO 06/26/21 09:00 07/07/21 09:30 Mirtazapine (Remeron) 7.5 mg QHS PO 06/26/21 21:00 07/05/21 23:55 DC 07/05/21 20:27 Paliperidone Palmitate (Invega Sustenna) 156 mg QMONTH IM 07/25/21 09:00 Risperidone (RisperDAL) 0.25 mg PRN DAILY PRN PO agitation 06/25/21 22:00 07/03/21 12:22 Trazodone HCl (Desyrel) 50 mg QHS PO 06/26/21 21:00 07/07/21 20:08 Fluphenazine HCl (Prolixin Oral Conc) 1 mg PRN BID PRN PO psychosis 06/25/21 22:15 07/02/21 13:26 Ondansetron HCl (Zofran Odt) 4 mg PRN Q6HRS PRN PO NAUSEA/VOMITING 06/26/21 14:00 07/05/21 05:50 Amlodipine Besylate (Norvasc) 2.5 mg DAILY PO 06/28/21 09:00 07/07/21 09:30 Atorvastatin Calcium (Lipitor) 10 mg QHS PO 06/27/21 21:00 07/07/21 20:09 Triamcinolone Acetonide (Kenalog) 1 mikhail PRN DAILY PRN TP rash in armpits 06/27/21 10:45 Artificial Tears (Refresh Classic) 1 drop QIDPRN PRN OU DRY EYE 06/27/21 11:00 07/02/21 07:58 Non-Formulary Medication (Carboxymethylcellulose Sodium (Lubricant Eye Drops)) 15 ml QID OP 06/27/21 13:00 06/27/21 10:50 DC Clobetasol Propionate 1 mikhail PRN BID PRN TP RASH 06/27/21 21:00 06/29/21 07:50 DC Pantoprazole Sodium (Protonix) 40 mg DAILY07 PO 06/28/21 07:00 07/07/21 09:30 Divalproex Sodium (Depakote Er) 1,000 mg HS PO 06/27/21 21:00 07/07/21 20:08 Penicillin G Benzathine (Bicillin L-A) 2,400,000 unit WEEKLY IM 06/29/21 09:00 07/13/21 09:01 07/06/21 08:58 Lactobacillus Rhamnosus (Culturelle) 1 cap BID PO 06/30/21 09:00 07/07/21 20:08 Risperidone (RisperDAL) 0.5 mg DAILY PO 06/30/21 17:15 07/01/21 16:59 DC 07/01/21 07:46 Risperidone (RisperDAL) 0.5 mg 0900,1700 PO 07/01/21 17:00 07/02/21 02:36 DC 07/01/21 17:30 Risperidone (RisperDAL) 1 mg 0900,1700 PO 07/02/21 09:00 07/07/21 17:13 Trazodone HCl (Desyrel) 25 mg 0900,1300,1700 PO 07/03/21 09:00 07/07/21 17:13 Trazodone HCl (Desyrel) 50 mg 1X ONCE PO 07/02/21 17:15 07/02/21 17:16 DC 07/02/21 17:29 Mirtazapine (Remeron) 7.5 mg QHS PO 07/06/21 21:00 07/07/21 20:09 Fluvoxamine Maleate (Luvox) 25 mg DAILY PO 07/07/21 09:00 07/09/21 12:00 07/07/21 09:29 Fluvoxamine Maleate (Luvox) 50 mg DAILY PO 07/10/21 09:00 Current Medications Medications (Trade) Dose Ordered Sig/Reny Route PRN Reason Start Time Stop Time Status Last Admin Dose Admin Fluvoxamine Maleate (Luvox) 25 mg DAILY PO 07/07/21 09:00 07/09/21 12:00 07/07/21 09:29 I have reviewed the current psychotropics carefully including drug interactions. Risk benefit ratio favors no change other than as noted in my dictated progress note. Diagnosis: Problems: (1) Schizoaffective disorder, bipolar type (2) Impulse control disorder, unspecified (3) Anxiety disorder, unspecified (4) Bipolar disorder, current episode mixed, severe, with psychotic features (5) Major neurocognitive disorder JOHANNE LEONARDO MD Jul 07, 2021 21:58
[2021-07-08 06:30] VITALS: BP 136/87
[2021-07-08] MEDS: PANTOPRAZOLE 40 MG TABLET. PO SCH (08:30)
[2021-07-08] MEDS: amLODIPine BESYLATE 5 MG TABLET PO SCH (08:30)
[2021-07-08] MEDS: traZODone 50 MG TABLET. PO SCH ×4 (08:30→20:02)
[2021-07-08] MEDS: LACTOBACILLUS RHAMNOSUS GG 1 CAPSULE. PO SCH ×2 (08:30→20:03)
[2021-07-08] MEDS: risperiDONE 0.5 MG TABLET. PO SCH ×2 (08:30→17:35)
[2021-07-08] MEDS: DONEPEZIL HCL 10 MG TABLET PO SCH (08:30)
[2021-07-08] MEDS: BENZTROPINE MESYLATE 1 MG TABLET PO SCH ×2 (08:30→20:02)
[2021-07-08] MEDS: NICOTINE 14MG PATCH. TD SCH (08:31)
[2021-07-08] MEDS: MEMANTINE 5 MG TABLET. PO SCH (08:31)
[2021-07-08 16:12] VITALS: BP 116/75
[2021-07-08] MEDS: MIRTAZAPINE 7.5 MG TABLET. PO SCH (20:02)
[2021-07-08] MEDS: DIVALPROEX ER 500 MG TAB.ER.24H PO SCH (20:02)
[2021-07-08] MEDS: ATORVASTATIN CALCIUM 10 MG TABLET. PO SCH (20:02)
--- NOTE | 2021-07-08 22:01 | PDOC ---
Exam Note: Bj Note: Please also refer to the separate dictated note~for this date of service dictated separately.~Patient seen individually. Discussed the patient with Nursing staff reviewed the chart.~Reviewed interim history and current functioning. Reviewed vital signs,~Labs/ Radiology~and current medications noted below. Continue current treatment with the changes noted in the dictated addendum note Assessment: Vital Signs/I&O: Vital Signs Date Time Temp Pulse Resp B/P (MAP) Pulse Ox O2 Delivery O2 Flow Rate FiO2 07/08/21 16:12 98.1 74 20 116/75 (89) 98 07/06/21 07:01 Room Air I & O 07/07/21 07/07/21 07/08/21 15:00 23:00 07:00 Intake Total 720 ml 480 ml Balance 720 ml 480 ml Current Medications: Meds: Current Medications Medications (Trade) Dose Ordered Sig/Reny Route PRN Reason Start Time Stop Time Status Last Admin Dose Admin Acetaminophen (Tylenol) 650 mg PRN Q6HRS PRN PO MILD PAIN / TEMP > 100.3'F 06/25/21 20:15 07/06/21 12:20 Multi-Ingredient Ointment (Analgesic [place]) 1 mikhail PRN QID PRN TP MUSCLE PAIN 06/25/21 20:15 07/05/21 21:53 Al Hydroxide/Mg Hydroxide (Mylanta Plus Xs) 15 ml PRN AFTMEALHC PRN PO DYSPEPSIA 06/25/21 20:15 Magnesium Hydroxide (Milk Of Magnesia) 2,400 mg PRN QHS PRN PO CONSTIPATION 06/25/21 20:15 07/05/21 20:27 Nicotine (Nicoderm Cq 14mg Patch) 1 patch DAILY TD 06/25/21 21:00 07/08/21 08:31 Benztropine Mesylate (Cogentin) 1 mg BID PO 06/26/21 22:00 07/08/21 20:02 Bupropion HCl (Wellbutrin Xl) 150 mg DAILY PO 06/26/21 09:00 07/07/21 02:18 DC 07/06/21 08:57 Divalproex Sodium (Depakote Er) 500 mg HS PO 06/26/21 21:00 06/27/21 18:00 DC 06/26/21 20:47 Donepezil HCl (Aricept) 10 mg DAILY PO 06/26/21 09:00 07/08/21 08:30 Memantine (Namenda) 5 mg DAILY PO 06/26/21 09:00 07/08/21 08:31 Mirtazapine (Remeron) 7.5 mg QHS PO 06/26/21 21:00 07/05/21 23:55 DC 07/05/21 20:27 Paliperidone Palmitate (Invega Sustenna) 156 mg QMONTH IM 07/25/21 09:00 Risperidone (RisperDAL) 0.25 mg PRN DAILY PRN PO agitation 06/25/21 22:00 07/03/21 12:22 Trazodone HCl (Desyrel) 50 mg QHS PO 06/26/21 21:00 07/08/21 20:02 Fluphenazine HCl (Prolixin Oral Conc) 1 mg PRN BID PRN PO psychosis 06/25/21 22:15 07/02/21 13:26 Ondansetron HCl (Zofran Odt) 4 mg PRN Q6HRS PRN PO NAUSEA/VOMITING 06/26/21 14:00 07/05/21 05:50 Amlodipine Besylate (Norvasc) 2.5 mg DAILY PO 06/28/21 09:00 07/08/21 08:30 Atorvastatin Calcium (Lipitor) 10 mg QHS PO 06/27/21 21:00 07/08/21 20:02 Triamcinolone Acetonide (Kenalog) 1 mikhail PRN DAILY PRN TP rash in armpits 06/27/21 10:45 Artificial Tears (Refresh Classic) 1 drop QIDPRN PRN OU DRY EYE 06/27/21 11:00 07/02/21 07:58 Non-Formulary Medication (Carboxymethylcellulose Sodium (Lubricant Eye Drops)) 15 ml QID OP 06/27/21 13:00 06/27/21 10:50 DC Clobetasol Propionate 1 mikhail PRN BID PRN TP RASH 06/27/21 21:00 06/29/21 07:50 DC Pantoprazole Sodium (Protonix) 40 mg DAILY07 PO 06/28/21 07:00 07/08/21 08:30 Divalproex Sodium (Depakote Er) 1,000 mg HS PO 06/27/21 21:00 07/08/21 20:02 Penicillin G Benzathine (Bicillin L-A) 2,400,000 unit WEEKLY IM 06/29/21 09:00 07/13/21 09:01 07/06/21 08:58 Lactobacillus Rhamnosus (Culturelle) 1 cap BID PO 06/30/21 09:00 07/08/21 20:03 Risperidone (RisperDAL) 0.5 mg DAILY PO 06/30/21 17:15 07/01/21 16:59 DC 07/01/21 07:46 Risperidone (RisperDAL) 0.5 mg 0900,1700 PO 07/01/21 17:00 07/02/21 02:36 DC 07/01/21 17:30 Risperidone (RisperDAL) 1 mg 0900,1700 PO 07/02/21 09:00 07/08/21 17:35 Trazodone HCl (Desyrel) 25 mg 0900,1300,1700 PO 07/03/21 09:00 07/08/21 17:36 Trazodone HCl (Desyrel) 50 mg 1X ONCE PO 07/02/21 17:15 07/02/21 17:16 DC 07/02/21 17:29 Mirtazapine (Remeron) 7.5 mg QHS PO 07/06/21 21:00 07/08/21 20:02 Fluvoxamine Maleate (Luvox) 25 mg DAILY PO 07/07/21 09:00 07/09/21 12:00 07/08/21 08:30 Fluvoxamine Maleate (Luvox) 50 mg DAILY PO 07/10/21 09:00 I have reviewed the current psychotropics carefully including drug interactions. Risk benefit ratio favors no change other than as noted in my dictated progress note. Diagnosis: Problems: (1) Schizoaffective disorder, bipolar type (2) Impulse control disorder, unspecified (3) Anxiety disorder, unspecified (4) Bipolar disorder, current episode mixed, severe, with psychotic features (5) Major neurocognitive disorder JOHANNE LEONARDO MD Jul 08, 2021 22:01
[2021-07-09 06:25] VITALS: BP 114/83
[2021-07-09] MEDS: PANTOPRAZOLE 40 MG TABLET. PO SCH (08:18)
[2021-07-09] MEDS: BENZTROPINE MESYLATE 1 MG TABLET PO SCH ×2 (08:18→20:40)
[2021-07-09] MEDS: traZODone 50 MG TABLET. PO SCH ×4 (08:20→20:40)
[2021-07-09] MEDS: DONEPEZIL HCL 10 MG TABLET PO SCH (08:20)
[2021-07-09] MEDS: MEMANTINE 5 MG TABLET. PO SCH (08:21)
[2021-07-09] MEDS: amLODIPine BESYLATE 5 MG TABLET PO SCH (08:21)
[2021-07-09] MEDS: LACTOBACILLUS RHAMNOSUS GG 1 CAPSULE. PO SCH ×2 (08:22→20:41)
[2021-07-09] MEDS: risperiDONE 0.5 MG TABLET. PO SCH ×2 (08:22→17:42)
[2021-07-09] MEDS: NICOTINE 14MG PATCH. TD SCH (08:23)
--- NOTE | 2021-07-09 08:40 | PDOC ---
Exam Note: Bj Note: This note is a late entry for 07/07/2021 covers elements not covered in my initial note. Subjective: The patient was seen individually on 07/07/2021, discussed and reviewed the chart with Kirsten SUAZO. The patient slept 6-3/4 hours previous night. Overall the patient is doing better, less somatic, less anxious, less obsessive and he is back on the regular unit. He has been less obsessed about his laundry and clothes. Valproic acid level 60 therapeutic today. Review of Systems: Positive for headaches, stomach ache but less ruminating on this. No CV, , pulmonary, eye system symptoms on review. Mental Status Exam: Patient is oriented to himself and situation. Speech coherent, has some latency, rapid at times. Abstraction fair. Computation impaired. Language function intact. Attention span short. Mood and affect remains somewhat anxious, labile but improved. Laboratory Data: Reviewed. Impression: Schizoaffective disorder, bipolar type, mixed with psychotic features. Mild cognitive impairment versus major neurocognitive disorder, unspecified. Anxiety disorder unspecified. Impulse control disorder unspecified. Plan: Continue psychotropics from initial note. Valproic acid level is therapeutic at 60. Adjust and increase the Luvox for his OCD symptoms. Reviewed drug interactions and risk benefit ratio. Assessment: Vital Signs/I&O: Vital Signs Date Time Temp Pulse Resp B/P (MAP) Pulse Ox O2 Delivery O2 Flow Rate FiO2 07/09/21 08:21 62 114/83 07/09/21 06:25 98.2 16 99 07/06/21 07:01 Room Air I & O 07/08/21 07/08/21 07/09/21 15:00 23:00 07:00 Intake Total 580 ml 480 ml Balance 580 ml 480 ml Labs: Laboratory Tests Test 07/08/21 10:50 POC SARS CoV-2 Antigen Negative (NEGATIVE) Current Medications: I have reviewed the current psychotropics carefully including drug interactions. Risk benefit ratio favors no change other than as noted in my dictated progress note. Diagnosis: Problems: (1) Schizoaffective disorder, bipolar type (2) Impulse control disorder, unspecified (3) Anxiety disorder, unspecified (4) Bipolar disorder, current episode mixed, severe, with psychotic features (5) Major neurocognitive disorder JOHANNE LEONARDO MD Jul 09, 2021 08:40
--- NOTE | 2021-07-09 08:55 | PDOC ---
Exam Note: Bj Note: This note is a late entry for 07/08/2021 covers elements not covered in my initial note. Subjective: The patient was seen individually on 07/08/2021, discussed and reviewed the chart with Nathaly SUAZO. The patient slept 6-1/2 hours previous night. He has overall done better. I met with him in his room, somewhat withdrawn, has been somewhat paranoid, talking about halfway staff having taken his HU card. Review of Systems: Hard of hearing. No CV, , pulmonary, eye system symptoms on review. Mental Status Exam: Patient is oriented to himself. Insight limited, judgment marginal. Language function intact. Attention span short. Mood and affect remains labile but improved. Laboratory Data: Reviewed. Impression: Schizoaffective disorder, bipolar type, mixed with psychotic features. Mild cognitive impairment versus major neurocognitive disorder, unspecified. Anxiety disorder unspecified. Impulse control disorder unspecified. Plan: Continue psychotropics from initial note. Reviewed drug interactions and risk benefit ratio. Assessment: Vital Signs/I&O: Vital Signs Date Time Temp Pulse Resp B/P (MAP) Pulse Ox O2 Delivery O2 Flow Rate FiO2 07/09/21 08:21 62 114/83 07/09/21 06:25 98.2 16 99 07/06/21 07:01 Room Air I & O 07/08/21 07/08/21 07/09/21 15:00 23:00 07:00 Intake Total 580 ml 480 ml Balance 580 ml 480 ml Labs: Laboratory Tests Test 07/08/21 10:50 POC SARS CoV-2 Antigen Negative (NEGATIVE) Current Medications: I have reviewed the current psychotropics carefully including drug interactions. Risk benefit ratio favors no change other than as noted in my dictated progress note. Diagnosis: Problems: (1) Schizoaffective disorder, bipolar type (2) Impulse control disorder, unspecified (3) Anxiety disorder, unspecified (4) Bipolar disorder, current episode mixed, severe, with psychotic features (5) Major neurocognitive disorder JOHANNE LEONARDO MD Jul 09, 2021 08:55
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
[2021-07-09 16:22] VITALS: BP 135/80
[2021-07-09] MEDS: DIVALPROEX ER 500 MG TAB.ER.24H PO SCH (20:40)
[2021-07-09] MEDS: MIRTAZAPINE 7.5 MG TABLET. PO SCH (20:40)
[2021-07-09] MEDS: ATORVASTATIN CALCIUM 10 MG TABLET. PO SCH (20:40)
--- NOTE | 2021-07-09 21:54 | PDOC ---
Exam Note: Bj Note: Please also refer to the separate dictated note~for this date of service dictated separately.~Patient seen individually. Discussed the patient with Nursing staff reviewed the chart.~Reviewed interim history and current functioning. Reviewed vital signs,~Labs/ Radiology~and current medications noted below. Continue current treatment with the changes noted in the dictated addendum note Assessment: Vital Signs/I&O: Vital Signs Date Time Temp Pulse Resp B/P (MAP) Pulse Ox O2 Delivery O2 Flow Rate FiO2 07/09/21 16:22 97.0 67 20 135/80 (98) 100 07/06/21 07:01 Room Air I & O 07/08/21 07/08/21 07/09/21 15:00 23:00 07:00 Intake Total 580 ml 480 ml Balance 580 ml 480 ml Current Medications: Meds: Current Medications Medications (Trade) Dose Ordered Sig/Reny Route PRN Reason Start Time Stop Time Status Last Admin Dose Admin Acetaminophen (Tylenol) 650 mg PRN Q6HRS PRN PO MILD PAIN / TEMP > 100.3'F 06/25/21 20:15 07/06/21 12:20 Multi-Ingredient Ointment (Analgesic [place]) 1 mikhail PRN QID PRN TP MUSCLE PAIN 06/25/21 20:15 07/05/21 21:53 Al Hydroxide/Mg Hydroxide (Mylanta Plus Xs) 15 ml PRN AFTMEALHC PRN PO DYSPEPSIA 06/25/21 20:15 Magnesium Hydroxide (Milk Of Magnesia) 2,400 mg PRN QHS PRN PO CONSTIPATION 06/25/21 20:15 07/05/21 20:27 Nicotine (Nicoderm Cq 14mg Patch) 1 patch DAILY TD 06/25/21 21:00 07/09/21 08:23 Benztropine Mesylate (Cogentin) 1 mg BID PO 06/26/21 22:00 07/09/21 20:40 Bupropion HCl (Wellbutrin Xl) 150 mg DAILY PO 06/26/21 09:00 07/07/21 02:18 DC 07/06/21 08:57 Divalproex Sodium (Depakote Er) 500 mg HS PO 06/26/21 21:00 06/27/21 18:00 DC 06/26/21 20:47 Donepezil HCl (Aricept) 10 mg DAILY PO 06/26/21 09:00 07/09/21 08:20 Memantine (Namenda) 5 mg DAILY PO 06/26/21 09:00 07/09/21 08:21 Mirtazapine (Remeron) 7.5 mg QHS PO 06/26/21 21:00 07/05/21 23:55 DC 07/05/21 20:27 Paliperidone Palmitate (Invega Sustenna) 156 mg QMONTH IM 07/25/21 09:00 Risperidone (RisperDAL) 0.25 mg PRN DAILY PRN PO agitation 06/25/21 22:00 07/03/21 12:22 Trazodone HCl (Desyrel) 50 mg QHS PO 06/26/21 21:00 07/09/21 20:40 Fluphenazine HCl (Prolixin Oral Conc) 1 mg PRN BID PRN PO psychosis 06/25/21 22:15 07/02/21 13:26 Ondansetron HCl (Zofran Odt) 4 mg PRN Q6HRS PRN PO NAUSEA/VOMITING 06/26/21 14:00 07/05/21 05:50 Amlodipine Besylate (Norvasc) 2.5 mg DAILY PO 06/28/21 09:00 07/09/21 08:21 Atorvastatin Calcium (Lipitor) 10 mg QHS PO 06/27/21 21:00 07/09/21 20:40 Triamcinolone Acetonide (Kenalog) 1 mikhail PRN DAILY PRN TP rash in armpits 06/27/21 10:45 Artificial Tears (Refresh Classic) 1 drop QIDPRN PRN OU DRY EYE 06/27/21 11:00 07/02/21 07:58 Non-Formulary Medication (Carboxymethylcellulose Sodium (Lubricant Eye Drops)) 15 ml QID OP 06/27/21 13:00 06/27/21 10:50 DC Clobetasol Propionate 1 mikhail PRN BID PRN TP RASH 06/27/21 21:00 06/29/21 07:50 DC Pantoprazole Sodium (Protonix) 40 mg DAILY07 PO 06/28/21 07:00 07/09/21 08:18 Divalproex Sodium (Depakote Er) 1,000 mg HS PO 06/27/21 21:00 07/09/21 20:40 Penicillin G Benzathine (Bicillin L-A) 2,400,000 unit WEEKLY IM 06/29/21 09:00 07/13/21 09:01 07/06/21 08:58 Lactobacillus Rhamnosus (Culturelle) 1 cap BID PO 06/30/21 09:00 07/09/21 20:41 Risperidone (RisperDAL) 0.5 mg DAILY PO 06/30/21 17:15 07/01/21 16:59 DC 07/01/21 07:46 Risperidone (RisperDAL) 0.5 mg 0900,1700 PO 07/01/21 17:00 07/02/21 02:36 DC 07/01/21 17:30 Risperidone (RisperDAL) 1 mg 0900,1700 PO 07/02/21 09:00 07/09/21 17:42 Trazodone HCl (Desyrel) 25 mg 0900,1300,1700 PO 07/03/21 09:00 07/09/21 17:42 Trazodone HCl (Desyrel) 50 mg 1X ONCE PO 07/02/21 17:15 07/02/21 17:16 DC 07/02/21 17:29 Mirtazapine (Remeron) 7.5 mg QHS PO 07/06/21 21:00 07/09/21 20:40 Fluvoxamine Maleate (Luvox) 25 mg DAILY PO 07/07/21 09:00 07/09/21 12:00 DC 07/09/21 08:18 Fluvoxamine Maleate (Luvox) 50 mg DAILY PO 07/10/21 09:00 I have reviewed the current psychotropics carefully including drug interactions. Risk benefit ratio favors no change other than as noted in my dictated progress note. Diagnosis: Problems: (1) Schizoaffective disorder, bipolar type (2) Impulse control disorder, unspecified (3) Anxiety disorder, unspecified (4) Bipolar disorder, current episode mixed, severe, with psychotic features (5) Major neurocognitive disorder JOHANNE LEONARDO MD Jul 09, 2021 21:54
[2021-07-10 06:09] VITALS: BP 121/62
[2021-07-10] MEDS: MEMANTINE 5 MG TABLET. PO SCH (08:21)
[2021-07-10] MEDS: NICOTINE 14MG PATCH. TD SCH (08:21)
[2021-07-10] MEDS: BENZTROPINE MESYLATE 1 MG TABLET PO SCH ×2 (08:21→19:41)
[2021-07-10] MEDS: DONEPEZIL HCL 10 MG TABLET PO SCH (08:21)
[2021-07-10] MEDS: PANTOPRAZOLE 40 MG TABLET. PO SCH (08:21)
[2021-07-10] MEDS: risperiDONE 0.5 MG TABLET. PO SCH ×2 (08:21→17:00)
[2021-07-10] MEDS: LACTOBACILLUS RHAMNOSUS GG 1 CAPSULE. PO SCH ×2 (08:22→19:41)
[2021-07-10] MEDS: amLODIPine BESYLATE 5 MG TABLET PO SCH (08:22)
[2021-07-10] MEDS: traZODone 50 MG TABLET. PO SCH ×4 (08:22→19:41)
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
[2021-07-10 16:20] VITALS: BP 113/82
[2021-07-10] MEDS: ATORVASTATIN CALCIUM 10 MG TABLET. PO SCH (19:41)
[2021-07-10] MEDS: MIRTAZAPINE 7.5 MG TABLET. PO SCH (19:41)
[2021-07-10] MEDS: DIVALPROEX ER 500 MG TAB.ER.24H PO SCH (19:41)
[2021-07-10] MEDS: ACETAMINOPHEN 325 MG TABLET PO PRN (20:01)
--- NOTE | 2021-07-10 22:18 | PDOC ---
Exam Note: Bj Note: Please also refer to the separate dictated note~for this date of service dictated separately.~Patient seen individually. Discussed the patient with Nursing staff reviewed the chart.~Reviewed interim history and current functioning. Reviewed vital signs,~Labs/ Radiology~and current medications noted below. Continue current treatment with the changes noted in the dictated addendum note Assessment: Vital Signs/I&O: Vital Signs Date Time Temp Pulse Resp B/P (MAP) Pulse Ox O2 Delivery O2 Flow Rate FiO2 07/10/21 16:20 97.3 77 20 113/82 (92) 96 07/10/21 06:09 Room Air I & O 07/09/21 07/09/21 07/10/21 15:00 23:00 07:00 Intake Total 480 ml 600 ml Balance 480 ml 600 ml Current Medications: Meds: Current Medications Medications (Trade) Dose Ordered Sig/Reny Route PRN Reason Start Time Stop Time Status Last Admin Dose Admin Acetaminophen (Tylenol) 650 mg PRN Q6HRS PRN PO MILD PAIN / TEMP > 100.3'F 06/25/21 20:15 07/10/21 20:01 Multi-Ingredient Ointment (Analgesic [place]) 1 mikhail PRN QID PRN TP MUSCLE PAIN 06/25/21 20:15 07/05/21 21:53 Al Hydroxide/Mg Hydroxide (Mylanta Plus Xs) 15 ml PRN AFTMEALHC PRN PO DYSPEPSIA 06/25/21 20:15 Magnesium Hydroxide (Milk Of Magnesia) 2,400 mg PRN QHS PRN PO CONSTIPATION 06/25/21 20:15 07/05/21 20:27 Nicotine (Nicoderm Cq 14mg Patch) 1 patch DAILY TD 06/25/21 21:00 07/10/21 08:21 Benztropine Mesylate (Cogentin) 1 mg BID PO 06/26/21 22:00 07/10/21 19:41 Bupropion HCl (Wellbutrin Xl) 150 mg DAILY PO 06/26/21 09:00 07/07/21 02:18 DC 07/06/21 08:57 Divalproex Sodium (Depakote Er) 500 mg HS PO 06/26/21 21:00 06/27/21 18:00 DC 06/26/21 20:47 Donepezil HCl (Aricept) 10 mg DAILY PO 06/26/21 09:00 07/10/21 08:21 Memantine (Namenda) 5 mg DAILY PO 06/26/21 09:00 07/10/21 08:21 Mirtazapine (Remeron) 7.5 mg QHS PO 06/26/21 21:00 07/05/21 23:55 DC 07/05/21 20:27 Paliperidone Palmitate (Invega Sustenna) 156 mg QMONTH IM 07/25/21 09:00 Risperidone (RisperDAL) 0.25 mg PRN DAILY PRN PO agitation 06/25/21 22:00 07/03/21 12:22 Trazodone HCl (Desyrel) 50 mg QHS PO 06/26/21 21:00 07/10/21 19:41 Fluphenazine HCl (Prolixin Oral Conc) 1 mg PRN BID PRN PO psychosis 06/25/21 22:15 07/02/21 13:26 Ondansetron HCl (Zofran Odt) 4 mg PRN Q6HRS PRN PO NAUSEA/VOMITING 06/26/21 14:00 07/05/21 05:50 Amlodipine Besylate (Norvasc) 2.5 mg DAILY PO 06/28/21 09:00 07/10/21 08:22 Atorvastatin Calcium (Lipitor) 10 mg QHS PO 06/27/21 21:00 07/10/21 19:41 Triamcinolone Acetonide (Kenalog) 1 mikhail PRN DAILY PRN TP rash in armpits 06/27/21 10:45 Artificial Tears (Refresh Classic) 1 drop QIDPRN PRN OU DRY EYE 06/27/21 11:00 07/02/21 07:58 Non-Formulary Medication (Carboxymethylcellulose Sodium (Lubricant Eye Drops)) 15 ml QID OP 06/27/21 13:00 06/27/21 10:50 DC Clobetasol Propionate 1 mikhail PRN BID PRN TP RASH 06/27/21 21:00 06/29/21 07:50 DC Pantoprazole Sodium (Protonix) 40 mg DAILY07 PO 06/28/21 07:00 07/10/21 08:21 Divalproex Sodium (Depakote Er) 1,000 mg HS PO 06/27/21 21:00 07/10/21 19:41 Penicillin G Benzathine (Bicillin L-A) 2,400,000 unit WEEKLY IM 06/29/21 09:00 07/13/21 09:01 07/06/21 08:58 Lactobacillus Rhamnosus (Culturelle) 1 cap BID PO 06/30/21 09:00 07/10/21 19:41 Risperidone (RisperDAL) 0.5 mg DAILY PO 06/30/21 17:15 07/01/21 16:59 DC 07/01/21 07:46 Risperidone (RisperDAL) 0.5 mg 0900,1700 PO 07/01/21 17:00 07/02/21 02:36 DC 07/01/21 17:30 Risperidone (RisperDAL) 1 mg 0900,1700 PO 07/02/21 09:00 07/10/21 17:00 Trazodone HCl (Desyrel) 25 mg 0900,1300,1700 PO 07/03/21 09:00 07/10/21 17:00 Trazodone HCl (Desyrel) 50 mg 1X ONCE PO 07/02/21 17:15 07/02/21 17:16 DC 07/02/21 17:29 Mirtazapine (Remeron) 7.5 mg QHS PO 07/06/21 21:00 07/10/21 19:41 Fluvoxamine Maleate (Luvox) 25 mg DAILY PO 07/07/21 09:00 07/09/21 12:00 DC 07/09/21 08:18 Fluvoxamine Maleate (Luvox) 50 mg DAILY PO 07/10/21 09:00 07/12/21 12:00 07/10/21 08:23 Fluvoxamine Maleate (Luvox) 75 mg DAILY PO 07/13/21 09:00 Current Medications Medications (Trade) Dose Ordered Sig/Reny Route PRN Reason Start Time Stop Time Status Last Admin Dose Admin Fluvoxamine Maleate (Luvox) 50 mg DAILY PO 07/10/21 09:00 07/12/21 12:00 07/10/21 08:23 I have reviewed the current psychotropics carefully including drug interactions. Risk benefit ratio favors no change other than as noted in my dictated progress note. Diagnosis: Problems: (1) Schizoaffective disorder, bipolar type (2) Impulse control disorder, unspecified (3) Anxiety disorder, unspecified (4) Bipolar disorder, current episode mixed, severe, with psychotic features (5) Major neurocognitive disorder JOHANNE LEONARDO MD Jul 10, 2021 22:18
[2021-07-11 06:12] VITALS: BP 116/76
[2021-07-11] MEDS: MEMANTINE 5 MG TABLET. PO SCH (08:09)
[2021-07-11] MEDS: risperiDONE 0.5 MG TABLET. PO SCH ×2 (08:09→17:20)
[2021-07-11] MEDS: PANTOPRAZOLE 40 MG TABLET. PO SCH (08:09)
[2021-07-11] MEDS: BENZTROPINE MESYLATE 1 MG TABLET PO SCH ×3 (08:09→20:01)
[2021-07-11] MEDS: LACTOBACILLUS RHAMNOSUS GG 1 CAPSULE. PO SCH ×3 (08:10→20:01)
[2021-07-11] MEDS: amLODIPine BESYLATE 5 MG TABLET PO SCH (08:11)
[2021-07-11] MEDS: traZODone 50 MG TABLET. PO SCH ×4 (08:11→19:56)
[2021-07-11] MEDS: NICOTINE 14MG PATCH. TD SCH (08:11)
[2021-07-11] MEDS: DONEPEZIL HCL 10 MG TABLET PO SCH (08:23)
--- NOTE | 2021-07-11 11:53 | PDOC ---
Exam Note: Bj Note: This note is a late entry for 07/09/2021 covers elements not covered in my initial note. Subjective: The patient was seen individually on 07/09/2021, discussed and reviewed the chart with Clarence SUAZO. The patient slept 8-1/2 hours previous night. I met with him in his room, extremely hard of hearing. He has been isolating himself. Review of Systems: Hard of hearing. No CV, , pulmonary, eye system symptoms on review. He is less obsessed about abdominal swelling and headaches. Mental Status Exam: Patient is oriented to himself. Insight limited, judgment marginal. Language function intact. Attention span short. Mood and affect remains labile. Laboratory Data: Reviewed. Impression: Schizoaffective disorder, bipolar type, mixed with psychotic features. Mild cognitive impairment versus major neurocognitive disorder, unspecified. Anxiety disorder unspecified. Impulse control disorder unspecified. Plan: Continue psychotropics from initial note. Reviewed drug interactions and risk benefit ratio. Overall per nursing report the patient is much calmer. We will continue to adjust his psychotropics. He is less obsessive since we started the Luvox. Assessment: Vital Signs/I&O: Vital Signs Date Time Temp Pulse Resp B/P (MAP) Pulse Ox O2 Delivery O2 Flow Rate FiO2 07/11/21 08:11 66 116/76 07/11/21 06:12 97.4 16 100 07/10/21 06:09 Room Air I & O 07/10/21 07/10/21 07/11/21 15:00 23:00 07:00 Intake Total 580 ml 480 ml Balance 580 ml 480 ml Current Medications: I have reviewed the current psychotropics carefully including drug interactions. Risk benefit ratio favors no change other than as noted in my dictated progress note. Diagnosis: Problems: (1) Schizoaffective disorder, bipolar type (2) Impulse control disorder, unspecified (3) Anxiety disorder, unspecified (4) Bipolar disorder, current episode mixed, severe, with psychotic features (5) Major neurocognitive disorder JOHANNE LEONARDO MD Jul 11, 2021 11:53
--- NOTE | 2021-07-11 12:16 | PDOC ---
Exam Note: Bj Note: This note is a late entry for 07/10/2021 covers elements not covered in my initial note. Subjective: The patient was reviewed at treatment team meeting individually in the morning on 07/10/2021 with Yuliana Cespedes, Jeri Zuniga, and Onelia Fortune (social worker psychiatric), Susi, activity therapy, and Ophelia SUAZO, discussed and reviewed the chart. We reviewed the patients history, diagnoses, treatment prognosis at some length. Overall the patient is doing well, less obsessive, somewhat withdrawn. Review of Systems: Hard of hearing. No CV, , pulmonary, eye system symptoms on review. Mental Status Exam: Patient is oriented to himself. I met with him in his room. Insight limited, judgment marginal. Language function intact. Attention span short. Mood and affect remains withdrawn. Laboratory Data: Reviewed. Impression: Schizoaffective disorder, bipolar type, mixed with psychotic features. Mild cognitive impairment versus major neurocognitive disorder, unspecified. Anxiety disorder unspecified. Impulse control disorder unspecified. Plan: Continue psychotropics from initial note. Reviewed drug interactions and risk benefit ratio. Assessment: Vital Signs/I&O: Vital Signs Date Time Temp Pulse Resp B/P (MAP) Pulse Ox O2 Delivery O2 Flow Rate FiO2 07/11/21 08:11 66 116/76 07/11/21 06:12 97.4 16 100 07/10/21 06:09 Room Air I & O 07/10/21 07/10/21 07/11/21 15:00 23:00 07:00 Intake Total 580 ml 480 ml Balance 580 ml 480 ml Current Medications: I have reviewed the current psychotropics carefully including drug interactions. Risk benefit ratio favors no change other than as noted in my dictated progress note. Diagnosis: Problems: (1) Schizoaffective disorder, bipolar type (2) Impulse control disorder, unspecified (3) Anxiety disorder, unspecified (4) Bipolar disorder, current episode mixed, severe, with psychotic features (5) Major neurocognitive disorder JOHANNE LEONARDO MD Jul 11, 2021 12:16
[2021-07-11 15:52] VITALS: BP 113/76
[2021-07-11] MEDS: ATORVASTATIN CALCIUM 10 MG TABLET. PO SCH (19:56)
[2021-07-11] MEDS: MIRTAZAPINE 7.5 MG TABLET. PO SCH (19:56)
[2021-07-11] MEDS: DIVALPROEX ER 500 MG TAB.ER.24H PO SCH (19:57)
--- NOTE | 2021-07-11 21:27 | PDOC ---
Exam Note: Bj Note: Please also refer to the separate dictated note~for this date of service dictated separately.~Patient seen individually. Discussed the patient with Nursing staff reviewed the chart.~Reviewed interim history and current functioning. Reviewed vital signs,~Labs/ Radiology~and current medications noted below. Continue current treatment with the changes noted in the dictated addendum note Assessment: Vital Signs/I&O: Vital Signs Date Time Temp Pulse Resp B/P (MAP) Pulse Ox O2 Delivery O2 Flow Rate FiO2 07/11/21 15:52 98.1 74 20 113/76 (88) 100 07/10/21 06:09 Room Air I & O 07/10/21 07/10/21 07/11/21 15:00 23:00 07:00 Intake Total 580 ml 480 ml Balance 580 ml 480 ml Current Medications: Meds: Current Medications Medications (Trade) Dose Ordered Sig/Reny Route PRN Reason Start Time Stop Time Status Last Admin Dose Admin Acetaminophen (Tylenol) 650 mg PRN Q6HRS PRN PO MILD PAIN / TEMP > 100.3'F 06/25/21 20:15 07/10/21 20:01 Multi-Ingredient Ointment (Analgesic [place]) 1 mikhail PRN QID PRN TP MUSCLE PAIN 06/25/21 20:15 07/05/21 21:53 Al Hydroxide/Mg Hydroxide (Mylanta Plus Xs) 15 ml PRN AFTMEALHC PRN PO DYSPEPSIA 06/25/21 20:15 Magnesium Hydroxide (Milk Of Magnesia) 2,400 mg PRN QHS PRN PO CONSTIPATION 06/25/21 20:15 07/05/21 20:27 Nicotine (Nicoderm Cq 14mg Patch) 1 patch DAILY TD 06/25/21 21:00 07/11/21 08:11 Benztropine Mesylate (Cogentin) 1 mg BID PO 06/26/21 22:00 07/11/21 20:01 Bupropion HCl (Wellbutrin Xl) 150 mg DAILY PO 06/26/21 09:00 07/07/21 02:18 DC 07/06/21 08:57 Divalproex Sodium (Depakote Er) 500 mg HS PO 06/26/21 21:00 06/27/21 18:00 DC 06/26/21 20:47 Donepezil HCl (Aricept) 10 mg DAILY PO 06/26/21 09:00 07/11/21 08:23 Memantine (Namenda) 5 mg DAILY PO 06/26/21 09:00 07/11/21 08:09 Mirtazapine (Remeron) 7.5 mg QHS PO 06/26/21 21:00 07/05/21 23:55 DC 07/05/21 20:27 Paliperidone Palmitate (Invega Sustenna) 156 mg QMONTH IM 07/25/21 09:00 Risperidone (RisperDAL) 0.25 mg PRN DAILY PRN PO agitation 06/25/21 22:00 07/03/21 12:22 Trazodone HCl (Desyrel) 50 mg QHS PO 06/26/21 21:00 07/11/21 19:56 Fluphenazine HCl (Prolixin Oral Conc) 1 mg PRN BID PRN PO psychosis 06/25/21 22:15 07/02/21 13:26 Ondansetron HCl (Zofran Odt) 4 mg PRN Q6HRS PRN PO NAUSEA/VOMITING 06/26/21 14:00 07/05/21 05:50 Amlodipine Besylate (Norvasc) 2.5 mg DAILY PO 06/28/21 09:00 07/11/21 08:11 Atorvastatin Calcium (Lipitor) 10 mg QHS PO 06/27/21 21:00 07/11/21 19:56 Triamcinolone Acetonide (Kenalog) 1 mikhail PRN DAILY PRN TP rash in armpits 06/27/21 10:45 Artificial Tears (Refresh Classic) 1 drop QIDPRN PRN OU DRY EYE 06/27/21 11:00 07/02/21 07:58 Non-Formulary Medication (Carboxymethylcellulose Sodium (Lubricant Eye Drops)) 15 ml QID OP 06/27/21 13:00 06/27/21 10:50 DC Clobetasol Propionate 1 mikhail PRN BID PRN TP RASH 06/27/21 21:00 06/29/21 07:50 DC Pantoprazole Sodium (Protonix) 40 mg DAILY07 PO 06/28/21 07:00 07/11/21 08:09 Divalproex Sodium (Depakote Er) 1,000 mg HS PO 06/27/21 21:00 07/11/21 19:57 Penicillin G Benzathine (Bicillin L-A) 2,400,000 unit WEEKLY IM 06/29/21 09:00 07/13/21 09:01 07/06/21 08:58 Lactobacillus Rhamnosus (Culturelle) 1 cap BID PO 06/30/21 09:00 07/11/21 20:01 Risperidone (RisperDAL) 0.5 mg DAILY PO 06/30/21 17:15 07/01/21 16:59 DC 07/01/21 07:46 Risperidone (RisperDAL) 0.5 mg 0900,1700 PO 07/01/21 17:00 07/02/21 02:36 DC 07/01/21 17:30 Risperidone (RisperDAL) 1 mg 0900,1700 PO 07/02/21 09:00 07/11/21 17:20 Trazodone HCl (Desyrel) 25 mg 0900,1300,1700 PO 07/03/21 09:00 07/11/21 17:19 Trazodone HCl (Desyrel) 50 mg 1X ONCE PO 07/02/21 17:15 07/02/21 17:16 DC 07/02/21 17:29 Mirtazapine (Remeron) 7.5 mg QHS PO 07/06/21 21:00 07/11/21 19:56 Fluvoxamine Maleate (Luvox) 25 mg DAILY PO 07/07/21 09:00 07/09/21 12:00 DC 07/09/21 08:18 Fluvoxamine Maleate (Luvox) 50 mg DAILY PO 07/10/21 09:00 07/12/21 12:00 07/11/21 08:10 Fluvoxamine Maleate (Luvox) 75 mg DAILY PO 07/13/21 09:00 I have reviewed the current psychotropics carefully including drug interactions. Risk benefit ratio favors no change other than as noted in my dictated progress note. Diagnosis: Problems: (1) Schizoaffective disorder, bipolar type (2) Impulse control disorder, unspecified (3) Anxiety disorder, unspecified (4) Bipolar disorder, current episode mixed, severe, with psychotic features (5) Major neurocognitive disorder JOHANNE LEONARDO MD Jul 11, 2021 21:27
--- NOTE | 2021-07-12 06:34 | PDOC ---
Exam Note: Bj Note: This note is a late entry for 07/11/2021 covers elements not covered in my initial note. Subjective: The patient was seen individually on 07/11/2021, discussed and reviewed the chart with Clarence SUAZO. The patient slept 7-3/4 hours previous night. I met with the patient in his room. Overall he remains somewhat withdrawn, disorganized, obsessed regarding discharge. I addressed this with him. Review of Systems: Extremely hard of hearing. I had to talk loudly into his ears. No CV, , pulmonary, eye system symptoms on review. Mental Status Exam: Patient is oriented to himself and situation. Speech has some latency coherent. Abstraction fair. Computation impaired. Language function intact. Mood and affect withdrawn. Laboratory Data: Reviewed. Impression: Schizoaffective disorder, bipolar type, mixed with psychotic features. Mild cognitive impairment versus major neurocognitive disorder, unspecified. Anxiety disorder unspecified. Impulse control disorder unspecified. Plan: Continue psychotropics from initial note. Reviewed drug interactions and risk benefit ratio. Assessment: Vital Signs/I&O: Vital Signs Date Time Temp Pulse Resp B/P (MAP) Pulse Ox O2 Delivery O2 Flow Rate FiO2 07/11/21 15:52 98.1 74 20 113/76 (88) 100 07/10/21 06:09 Room Air I & O 07/11/21 07/11/21 07/12/21 15:00 23:00 07:00 Intake Total 960 ml 720 ml Balance 960 ml 720 ml Current Medications: I have reviewed the current psychotropics carefully including drug interactions. Risk benefit ratio favors no change other than as noted in my dictated progress note. Diagnosis: Problems: (1) Schizoaffective disorder, bipolar type (2) Impulse control disorder, unspecified (3) Anxiety disorder, unspecified (4) Bipolar disorder, current episode mixed, severe, with psychotic features (5) Major neurocognitive disorder JOHANNE LEONARDO MD Jul 12, 2021 06:34
[2021-07-12 06:48] VITALS: BP 122/70
[2021-07-12] MEDS: ACETAMINOPHEN 325 MG TABLET PO PRN (08:17)
[2021-07-12] MEDS: MEMANTINE 5 MG TABLET. PO SCH (08:18)
[2021-07-12] MEDS: amLODIPine BESYLATE 5 MG TABLET PO SCH (08:18)
[2021-07-12] MEDS: PANTOPRAZOLE 40 MG TABLET. PO SCH (08:18)
[2021-07-12] MEDS: DONEPEZIL HCL 10 MG TABLET PO SCH (08:19)
[2021-07-12] MEDS: risperiDONE 0.5 MG TABLET. PO SCH ×2 (08:19→16:43)
[2021-07-12] MEDS: traZODone 50 MG TABLET. PO SCH ×4 (08:19→21:33)
[2021-07-12] MEDS: NICOTINE 14MG PATCH. TD SCH (09:00)
[2021-07-12 16:01] VITALS: BP 120/70
[2021-07-12] MEDS: ATORVASTATIN CALCIUM 10 MG TABLET. PO SCH (21:33)
[2021-07-12] MEDS: MIRTAZAPINE 7.5 MG TABLET. PO SCH (21:33)
[2021-07-12] MEDS: DIVALPROEX ER 500 MG TAB.ER.24H PO SCH (21:33)
[2021-07-12] MEDS: BENZTROPINE MESYLATE 1 MG TABLET PO SCH (21:34)
[2021-07-12] MEDS: LACTOBACILLUS RHAMNOSUS GG 1 CAPSULE. PO SCH (21:34)
--- NOTE | 2021-07-12 22:28 | PDOC ---
Exam Note: Bj Note: Please also refer to the separate dictated note~for this date of service dictated separately.~Patient seen individually. Discussed the patient with Nursing staff reviewed the chart.~Reviewed interim history and current functioning. Reviewed vital signs,~Labs/ Radiology~and current medications noted below. Continue current treatment with the changes noted in the dictated addendum note Assessment: Vital Signs/I&O: Vital Signs Date Time Temp Pulse Resp B/P (MAP) Pulse Ox O2 Delivery O2 Flow Rate FiO2 07/12/21 16:01 98.0 84 18 120/70 (87) 96 07/10/21 06:09 Room Air I & O 07/11/21 07/11/21 07/12/21 15:00 23:00 07:00 Intake Total 960 ml 720 ml Balance 960 ml 720 ml Current Medications: Meds: Current Medications Medications (Trade) Dose Ordered Sig/Reny Route PRN Reason Start Time Stop Time Status Last Admin Dose Admin Acetaminophen (Tylenol) 650 mg PRN Q6HRS PRN PO MILD PAIN / TEMP > 100.3'F 06/25/21 20:15 07/12/21 08:17 Multi-Ingredient Ointment (Analgesic [place]) 1 mikhail PRN QID PRN TP MUSCLE PAIN 06/25/21 20:15 07/05/21 21:53 Al Hydroxide/Mg Hydroxide (Mylanta Plus Xs) 15 ml PRN AFTMEALHC PRN PO DYSPEPSIA 06/25/21 20:15 Magnesium Hydroxide (Milk Of Magnesia) 2,400 mg PRN QHS PRN PO CONSTIPATION 06/25/21 20:15 07/05/21 20:27 Nicotine (Nicoderm Cq 14mg Patch) 1 patch DAILY TD 06/25/21 21:00 07/12/21 09:00 Benztropine Mesylate (Cogentin) 1 mg BID PO 06/26/21 22:00 07/12/21 21:34 Bupropion HCl (Wellbutrin Xl) 150 mg DAILY PO 06/26/21 09:00 07/07/21 02:18 DC 07/06/21 08:57 Divalproex Sodium (Depakote Er) 500 mg HS PO 06/26/21 21:00 06/27/21 18:00 DC 06/26/21 20:47 Donepezil HCl (Aricept) 10 mg DAILY PO 06/26/21 09:00 07/12/21 08:19 Memantine (Namenda) 5 mg DAILY PO 06/26/21 09:00 07/12/21 08:18 Mirtazapine (Remeron) 7.5 mg QHS PO 06/26/21 21:00 07/05/21 23:55 DC 07/05/21 20:27 Paliperidone Palmitate (Invega Sustenna) 156 mg QMONTH IM 07/25/21 09:00 Risperidone (RisperDAL) 0.25 mg PRN DAILY PRN PO agitation 06/25/21 22:00 07/03/21 12:22 Trazodone HCl (Desyrel) 50 mg QHS PO 06/26/21 21:00 07/12/21 21:33 Fluphenazine HCl (Prolixin Oral Conc) 1 mg PRN BID PRN PO psychosis 06/25/21 22:15 07/02/21 13:26 Ondansetron HCl (Zofran Odt) 4 mg PRN Q6HRS PRN PO NAUSEA/VOMITING 06/26/21 14:00 07/05/21 05:50 Amlodipine Besylate (Norvasc) 2.5 mg DAILY PO 06/28/21 09:00 07/12/21 08:18 Atorvastatin Calcium (Lipitor) 10 mg QHS PO 06/27/21 21:00 07/12/21 21:33 Triamcinolone Acetonide (Kenalog) 1 mikhail PRN DAILY PRN TP rash in armpits 06/27/21 10:45 Artificial Tears (Refresh Classic) 1 drop QIDPRN PRN OU DRY EYE 06/27/21 11:00 07/02/21 07:58 Non-Formulary Medication (Carboxymethylcellulose Sodium (Lubricant Eye Drops)) 15 ml QID OP 06/27/21 13:00 06/27/21 10:50 DC Clobetasol Propionate 1 mikhail PRN BID PRN TP RASH 06/27/21 21:00 06/29/21 07:50 DC Pantoprazole Sodium (Protonix) 40 mg DAILY07 PO 06/28/21 07:00 07/12/21 08:18 Divalproex Sodium (Depakote Er) 1,000 mg HS PO 06/27/21 21:00 07/12/21 21:33 Penicillin G Benzathine (Bicillin L-A) 2,400,000 unit WEEKLY IM 06/29/21 09:00 07/13/21 09:01 07/06/21 08:58 Lactobacillus Rhamnosus (Culturelle) 1 cap BID PO 06/30/21 09:00 07/12/21 21:34 Risperidone (RisperDAL) 0.5 mg DAILY PO 06/30/21 17:15 07/01/21 16:59 DC 07/01/21 07:46 Risperidone (RisperDAL) 0.5 mg 0900,1700 PO 07/01/21 17:00 07/02/21 02:36 DC 07/01/21 17:30 Risperidone (RisperDAL) 1 mg 0900,1700 PO 07/02/21 09:00 07/12/21 16:43 Trazodone HCl (Desyrel) 25 mg 0900,1300,1700 PO 07/03/21 09:00 07/12/21 16:44 Trazodone HCl (Desyrel) 50 mg 1X ONCE PO 07/02/21 17:15 07/02/21 17:16 DC 07/02/21 17:29 Mirtazapine (Remeron) 7.5 mg QHS PO 07/06/21 21:00 07/12/21 21:33 Fluvoxamine Maleate (Luvox) 25 mg DAILY PO 07/07/21 09:00 07/09/21 12:00 DC 07/09/21 08:18 Fluvoxamine Maleate (Luvox) 50 mg DAILY PO 07/10/21 09:00 07/12/21 12:00 DC 07/12/21 08:19 Fluvoxamine Maleate (Luvox) 75 mg DAILY PO 07/13/21 09:00 I have reviewed the current psychotropics carefully including drug interactions. Risk benefit ratio favors no change other than as noted in my dictated progress note. Diagnosis: Problems: (1) Schizoaffective disorder, bipolar type (2) Impulse control disorder, unspecified (3) Anxiety disorder, unspecified (4) Bipolar disorder, current episode mixed, severe, with psychotic features (5) Major neurocognitive disorder JOHANNE LEONARDO MD Jul 12, 2021 22:28
[2021-07-13 06:32] VITALS: BP 107/69
[2021-07-13] MEDS: traZODone 50 MG TABLET. PO SCH ×4 (08:19→21:00)
[2021-07-13] MEDS: BENZTROPINE MESYLATE 1 MG TABLET PO SCH ×2 (08:20→21:00)
[2021-07-13] MEDS: amLODIPine BESYLATE 5 MG TABLET PO SCH (08:20)
[2021-07-13] MEDS: LACTOBACILLUS RHAMNOSUS GG 1 CAPSULE. PO SCH ×2 (08:20→21:00)
[2021-07-13] MEDS: risperiDONE 0.5 MG TABLET. PO SCH ×2 (08:21→17:01)
[2021-07-13] MEDS: NICOTINE 14MG PATCH. TD SCH (08:21)
[2021-07-13] MEDS: PANTOPRAZOLE 40 MG TABLET. PO SCH (08:21)
[2021-07-13] MEDS: DONEPEZIL HCL 10 MG TABLET PO SCH (08:21)
[2021-07-13] MEDS: MEMANTINE 5 MG TABLET. PO SCH (08:21)
[2021-07-13] MEDS: PENICILLIN G BENZATHINE LA 1,200,000 UNIT/2 ML DISP.SYRIN. IM SCH (11:37)
[2021-07-13 16:55] VITALS: BP 115/77
[2021-07-13] MEDS: ATORVASTATIN CALCIUM 10 MG TABLET. PO SCH (21:00)
[2021-07-13] MEDS: MIRTAZAPINE 7.5 MG TABLET. PO SCH (21:00)
[2021-07-13] MEDS: DIVALPROEX ER 500 MG TAB.ER.24H PO SCH (21:01)
--- NOTE | 2021-07-13 21:51 | PDOC ---
Exam Note: Bj Note: Please also refer to the separate dictated note~for this date of service dictated separately.~Patient seen individually. Discussed the patient with Nursing staff reviewed the chart.~Reviewed interim history and current functioning. Reviewed vital signs,~Labs/ Radiology~and current medications noted below. Continue current treatment with the changes noted in the dictated addendum note Assessment: Vital Signs/I&O: Vital Signs Date Time Temp Pulse Resp B/P (MAP) Pulse Ox O2 Delivery O2 Flow Rate FiO2 07/13/21 16:55 97.0 69 12 115/77 (90) 99 Room Air I & O 07/12/21 07/12/21 07/13/21 15:00 23:00 07:00 Intake Total 840 ml 600 ml Balance 840 ml 600 ml Current Medications: Meds: Current Medications Medications (Trade) Dose Ordered Sig/Reny Route PRN Reason Start Time Stop Time Status Last Admin Dose Admin Acetaminophen (Tylenol) 650 mg PRN Q6HRS PRN PO MILD PAIN / TEMP > 100.3'F 06/25/21 20:15 07/12/21 08:17 Multi-Ingredient Ointment (Analgesic [place]) 1 mikhail PRN QID PRN TP MUSCLE PAIN 06/25/21 20:15 07/05/21 21:53 Al Hydroxide/Mg Hydroxide (Mylanta Plus Xs) 15 ml PRN AFTMEALHC PRN PO DYSPEPSIA 06/25/21 20:15 Magnesium Hydroxide (Milk Of Magnesia) 2,400 mg PRN QHS PRN PO CONSTIPATION 06/25/21 20:15 07/05/21 20:27 Nicotine (Nicoderm Cq 14mg Patch) 1 patch DAILY TD 06/25/21 21:00 07/13/21 08:21 Benztropine Mesylate (Cogentin) 1 mg BID PO 06/26/21 22:00 07/13/21 21:00 Bupropion HCl (Wellbutrin Xl) 150 mg DAILY PO 06/26/21 09:00 07/07/21 02:18 DC 07/06/21 08:57 Divalproex Sodium (Depakote Er) 500 mg HS PO 06/26/21 21:00 06/27/21 18:00 DC 06/26/21 20:47 Donepezil HCl (Aricept) 10 mg DAILY PO 06/26/21 09:00 07/13/21 08:21 Memantine (Namenda) 5 mg DAILY PO 06/26/21 09:00 07/13/21 08:21 Mirtazapine (Remeron) 7.5 mg QHS PO 06/26/21 21:00 07/05/21 23:55 DC 07/05/21 20:27 Paliperidone Palmitate (Invega Sustenna) 156 mg QMONTH IM 07/25/21 09:00 Risperidone (RisperDAL) 0.25 mg PRN DAILY PRN PO agitation 06/25/21 22:00 07/03/21 12:22 Trazodone HCl (Desyrel) 50 mg QHS PO 06/26/21 21:00 07/13/21 21:00 Fluphenazine HCl (Prolixin Oral Conc) 1 mg PRN BID PRN PO psychosis 06/25/21 22:15 07/02/21 13:26 Ondansetron HCl (Zofran Odt) 4 mg PRN Q6HRS PRN PO NAUSEA/VOMITING 06/26/21 14:00 07/05/21 05:50 Amlodipine Besylate (Norvasc) 2.5 mg DAILY PO 06/28/21 09:00 07/13/21 08:20 Atorvastatin Calcium (Lipitor) 10 mg QHS PO 06/27/21 21:00 07/13/21 21:00 Triamcinolone Acetonide (Kenalog) 1 mikhail PRN DAILY PRN TP rash in armpits 06/27/21 10:45 Artificial Tears (Refresh Classic) 1 drop QIDPRN PRN OU DRY EYE 06/27/21 11:00 07/02/21 07:58 Non-Formulary Medication (Carboxymethylcellulose Sodium (Lubricant Eye Drops)) 15 ml QID OP 06/27/21 13:00 06/27/21 10:50 DC Clobetasol Propionate 1 mikhail PRN BID PRN TP RASH 06/27/21 21:00 06/29/21 07:50 DC Pantoprazole Sodium (Protonix) 40 mg DAILY07 PO 06/28/21 07:00 07/13/21 08:21 Divalproex Sodium (Depakote Er) 1,000 mg HS PO 06/27/21 21:00 07/13/21 21:01 Penicillin G Benzathine (Bicillin L-A) 2,400,000 unit WEEKLY IM 06/29/21 09:00 07/13/21 09:01 DC 07/13/21 11:37 Lactobacillus Rhamnosus (Culturelle) 1 cap BID PO 06/30/21 09:00 07/13/21 21:00 Risperidone (RisperDAL) 0.5 mg DAILY PO 06/30/21 17:15 07/01/21 16:59 DC 07/01/21 07:46 Risperidone (RisperDAL) 0.5 mg 0900,1700 PO 07/01/21 17:00 07/02/21 02:36 DC 07/01/21 17:30 Risperidone (RisperDAL) 1 mg 0900,1700 PO 07/02/21 09:00 07/13/21 17:01 Trazodone HCl (Desyrel) 25 mg 0900,1300,1700 PO 07/03/21 09:00 07/13/21 17:01 Trazodone HCl (Desyrel) 50 mg 1X ONCE PO 07/02/21 17:15 07/02/21 17:16 DC 07/02/21 17:29 Mirtazapine (Remeron) 7.5 mg QHS PO 07/06/21 21:00 07/13/21 21:00 Fluvoxamine Maleate (Luvox) 25 mg DAILY PO 07/07/21 09:00 07/09/21 12:00 DC 07/09/21 08:18 Fluvoxamine Maleate (Luvox) 50 mg DAILY PO 07/10/21 09:00 07/12/21 12:00 DC 07/12/21 08:19 Fluvoxamine Maleate (Luvox) 75 mg DAILY PO 07/13/21 09:00 07/13/21 08:20 Current Medications Medications (Trade) Dose Ordered Sig/Reny Route PRN Reason Start Time Stop Time Status Last Admin Dose Admin Fluvoxamine Maleate (Luvox) 75 mg DAILY PO 07/13/21 09:00 07/13/21 08:20 I have reviewed the current psychotropics carefully including drug interactions. Risk benefit ratio favors no change other than as noted in my dictated progress note. Diagnosis: Problems: (1) Schizoaffective disorder, bipolar type (2) Impulse control disorder, unspecified (3) Anxiety disorder, unspecified (4) Bipolar disorder, current episode mixed, severe, with psychotic features (5) Major neurocognitive disorder JOHANNE LEONARDO MD Jul 13, 2021 21:51
[2021-07-14 06:25] LABS: BASO % 0 % (0-3); EOS % 0 % (0-3); HEMATOCRIT 38.8 % (39.0-53.0); HEMOGLOBIN 12.4 g/dL (13.0-17.5); LYMPH # 3.1 x10^3/uL (1.0-4.8); LYMPH % 45 % (24-48); MEAN CORPUSCULAR HEMOGLOBIN 28 pg (25-35); MEAN CORPUSCULAR HGB CONC 32 g/dL (31-37); MEAN CORPUSCULAR VOLUME 88 fL (79-100); MONO % 15 % (0-9); NEUT # 2.7 x10^3uL (1.8-7.7); NEUT % 39 % (31-73); PLATELET COUNT 138 x10^3/uL (140-400); RED CELL DISTRIBUTION WIDTH 14.8 % (11.5-14.5); WHITE BLOOD COUNT 6.9 x10^3/uL (4.0-11.0)
[2021-07-14 06:33] VITALS: BP 143/86
[2021-07-14 06:41] LABS: ALBUMIN 2.8 g/dL (3.4-5.0); ALBUMIN/GLOBULIN RATIO 0.8 (1.0-1.7); CALCIUM 8.4 mg/dL (8.5-10.1); CREATININE 0.7 mg/dL (0.7-1.3); GFR 136.9; POTASSIUM 4.6 mmol/L (3.5-5.1); TOTAL BILIRUBIN 0.3 mg/dL (0.2-1.0); TOTAL PROTEIN 6.4 g/dL (6.4-8.2)
[2021-07-14] MEDS: BENZTROPINE MESYLATE 1 MG TABLET PO SCH ×2 (08:07→21:10)
[2021-07-14] MEDS: amLODIPine BESYLATE 5 MG TABLET PO SCH (08:08)
[2021-07-14] MEDS: MEMANTINE 5 MG TABLET. PO SCH (08:08)
[2021-07-14] MEDS: traZODone 50 MG TABLET. PO SCH ×4 (08:08→21:11)
[2021-07-14] MEDS: LACTOBACILLUS RHAMNOSUS GG 1 CAPSULE. PO SCH ×2 (08:08→21:10)
[2021-07-14] MEDS: PANTOPRAZOLE 40 MG TABLET. PO SCH (08:08)
[2021-07-14] MEDS: DONEPEZIL HCL 10 MG TABLET PO SCH (08:08)
[2021-07-14] MEDS: NICOTINE 14MG PATCH. TD SCH (08:09)
[2021-07-14] MEDS: risperiDONE 0.5 MG TABLET. PO SCH ×2 (08:09→17:12)
--- NOTE | 2021-07-14 08:16 | PDOC ---
Exam Note: Bj Note: This note is a late entry for 07/12/2021 covers elements not covered in my initial note. Subjective: The patient was seen individually on 07/12/2021, discussed and reviewed the chart with Magnolia SUAZO. The patient slept 7-3/4 hours previous night. Overall he has done better, less obsessive and anxious, less paranoid. He is alert and oriented x3. Review of Systems: Extremely hard of hearing. He is obsessed regarding his socks. No CV, , pulmonary, eye system symptoms on review. Mental Status Exam: Patient is oriented to himself and situation. He was seen in his room. Speech coherent. Abstraction fair. Computation impaired. Language function intact. He was pleasant, smiling, less paranoid. Laboratory Data: Reviewed. Impression: Schizoaffective disorder, bipolar type, mixed with psychotic features. Mild cognitive impairment versus major neurocognitive disorder, unspecified. Anxiety disorder unspecified. Impulse control disorder unspecified. Plan: Continue psychotropics from initial note. Reviewed drug interactions and risk benefit ratio. Labs will be checked on 07/14. Assessment: Vital Signs/I&O: Vital Signs Date Time Temp Pulse Resp B/P (MAP) Pulse Ox O2 Delivery O2 Flow Rate FiO2 07/14/21 08:08 65 143/86 07/14/21 06:33 97.9 16 98 07/13/21 16:55 Room Air I & O 07/13/21 07/13/21 07/14/21 15:00 23:00 07:00 Intake Total 360 ml 720 ml 240 ml Balance 360 ml 720 ml 240 ml Labs: Laboratory Tests Test 07/14/21 06:05 White Blood Count 6.9 x10^3/uL (4.0-11.0) Red Blood Count 4.40 x10^6/uL (4.30-5.70) Hemoglobin 12.4 g/dL (13.0-17.5) L Hematocrit 38.8 % (39.0-53.0) L Mean Corpuscular Volume 88 fL (79-100) Mean Corpuscular Hemoglobin 28 pg (25-35) Mean Corpuscular Hemoglobin Concent 32 g/dL (31-37) Red Cell Distribution Width 14.8 % (11.5-14.5) H Platelet Count 138 x10^3/uL (140-400) L Neutrophils (%) (Auto) 39 % (31-73) Lymphocytes (%) (Auto) 45 % (24-48) Monocytes (%) (Auto) 15 % (0-9) H Eosinophils (%) (Auto) 0 % (0-3) Basophils (%) (Auto) 0 % (0-3) Neutrophils # (Auto) 2.7 x10^3uL (1.8-7.7) Lymphocytes # (Auto) 3.1 x10^3/uL (1.0-4.8) Monocytes # (Auto) 1.0 x10^3/uL (0.0-1.1) Eosinophils # (Auto) 0.0 x10^3/uL (0.0-0.7) Basophils # (Auto) 0.0 x10^3/uL (0.0-0.2) Sodium Level 138 mmol/L (136-145) Potassium Level 4.6 mmol/L (3.5-5.1) Chloride Level 107 mmol/L (98-107) Carbon Dioxide Level 30 mmol/L (21-32) Anion Gap 1 (6-14) L Blood Urea Nitrogen 15 mg/dL (8-26) Creatinine 0.7 mg/dL (0.7-1.3) Estimated GFR (Cockcroft-Gault) 136.9 BUN/Creatinine Ratio 21 (6-20) H Glucose Level 90 mg/dL (70-99) Calcium Level 8.4 mg/dL (8.5-10.1) L Total Bilirubin 0.3 mg/dL (0.2-1.0) Aspartate Amino Transferase (AST) 15 U/L (15-37) Alanine Aminotransferase (ALT) 17 U/L (16-63) Alkaline Phosphatase 73 U/L (46-116) Total Protein 6.4 g/dL (6.4-8.2) Albumin 2.8 g/dL (3.4-5.0) L Albumin/Globulin Ratio 0.8 (1.0-1.7) L Current Medications: Meds: Current Medications Medications (Trade) Dose Ordered Sig/Reny Route PRN Reason Start Time Stop Time Status Last Admin Dose Admin Fluvoxamine Maleate (Luvox) 75 mg DAILY PO 07/13/21 09:00 4/18/22 08:09 I have reviewed the current psychotropics carefully including drug interactions. Risk benefit ratio favors no change other than as noted in my dictated progress note. Diagnosis: Problems: (1) Schizoaffective disorder, bipolar type (2) Impulse control disorder, unspecified (3) Anxiety disorder, unspecified (4) Bipolar disorder, current episode mixed, severe, with psychotic features (5) Major neurocognitive disorder JOHANNE LEONARDO MD Jul 14, 2021 08:16
--- NOTE | 2021-07-14 08:34 | PDOC ---
Exam Note: Bj Note: This note is a late entry for 07/13/2021 covers elements not covered in my initial note. Subjective: The patient was seen individually on 07/13/2021, discussed and reviewed the chart with Kamini SUAZO. The patient slept 8 hours previous night. Overall he has been calmer, cooperative. I met with him at the corridor. He was obsessed regarding discharge plans. I addressed with him. Review of Systems: Hard of hearing. No CV, , pulmonary, eye system symptoms on review. Mental Status Exam: Patient is oriented to himself and situation. Speech has some latency coherent. Abstraction fair. Computation impaired. Language function intact. Mood and affect withdrawn. Laboratory Data: Reviewed. Impression: Schizoaffective disorder, bipolar type, mixed with psychotic features. Mild cognitive impairment versus major neurocognitive disorder, unspecified. Anxiety disorder unspecified. Impulse control disorder unspecified. Plan: Continue psychotropics from initial note. Reviewed drug interactions and risk benefit ratio. Assessment: Vital Signs/I&O: Vital Signs Date Time Temp Pulse Resp B/P (MAP) Pulse Ox O2 Delivery O2 Flow Rate FiO2 07/14/21 08:08 65 143/86 07/14/21 06:33 97.9 16 98 07/13/21 16:55 Room Air I & O0 07/13/21 07/13/21 07/14/21 15:00 23:00 07:00 Intake Total 360 ml 720 ml 240 ml Balance 360 ml 720 ml 240 ml Labs: Laboratory Tests Test 07/14/21 06:05 White Blood Count 6.9 x10^3/uL (4.0-11.0) Red Blood Count 4.40 x10^6/uL (4.30-5.70) Hemoglobin 12.4 g/dL (13.0-17.5) L Hematocrit 38.8 % (39.0-53.0) L Mean Corpuscular Volume 88 fL (79-100) Mean Corpuscular Hemoglobin 28 pg (25-35) Mean Corpuscular Hemoglobin Concent 32 g/dL (31-37) Red Cell Distribution Width 14.8 % (11.5-14.5) H Platelet Count 138 x10^3/uL (140-400) L Neutrophils (%) (Auto) 39 % (31-73) Lymphocytes (%) (Auto) 45 % (24-48) Monocytes (%) (Auto) 15 % (0-9) H Eosinophils (%) (Auto) 0 % (0-3) Basophils (%) (Auto) 0 % (0-3) Neutrophils # (Auto) 2.7 x10^3uL (1.8-7.7) Lymphocytes # (Auto) 3.1 x10^3/uL (1.0-4.8) Monocytes # (Auto) 1.0 x10^3/uL (0.0-1.1) Eosinophils # (Auto) 0.0 x10^3/uL (0.0-0.7) Basophils # (Auto) 0.0 x10^3/uL (0.0-0.2) Sodium Level 138 mmol/L (136-145) Potassium Level 4.6 mmol/L (3.5-5.1) Chloride Level 107 mmol/L (98-107) Carbon Dioxide Level 30 mmol/L (21-32) Anion Gap 1 (6-14) L Blood Urea Nitrogen 15 mg/dL (8-26) Creatinine 0.7 mg/dL (0.7-1.3) Estimated GFR (Cockcroft-Gault) 136.9 BUN/Creatinine Ratio 21 (6-20) H Glucose Level 90 mg/dL (70-99) Calcium Level 8.4 mg/dL (8.5-10.1) L Total Bilirubin 0.3 mg/dL (0.2-1.0) Aspartate Amino Transferase (AST) 15 U/L (15-37) Alanine Aminotransferase (ALT) 17 U/L (16-63) Alkaline Phosphatase 73 U/L (46-116) Total Protein 6.4 g/dL (6.4-8.2) Albumin 2.8 g/dL (3.4-5.0) L Albumin/Globulin Ratio 0.8 (1.0-1.7) L Current Medications: Meds: Current Medications Medications (Trade) Dose Ordered Sig/Reny Route PRN Reason Start Time Stop Time Status Last Admin Dose Admin Fluvoxamine Maleate (Luvox) 75 mg DAILY PO 07/13/21 09:00 07/14/21 08:09 I have reviewed the current psychotropics carefully including drug interactions. Risk benefit ratio favors no change other than as noted in my dictated progress note. Diagnosis: Problems: (1) Schizoaffective disorder, bipolar type (2) Impulse control disorder, unspecified (3) Anxiety disorder, unspecified (4) Bipolar disorder, current episode mixed, severe, with psychotic features (5) Major neurocognitive disorder JOHANNE LEONARDO MD Jul 14, 2021 08:34
[2021-07-14 15:53] VITALS: BP 103/70
[2021-07-14] MEDS: ATORVASTATIN CALCIUM 10 MG TABLET. PO SCH (21:11)
[2021-07-14] MEDS: MIRTAZAPINE 7.5 MG TABLET. PO SCH (21:11)
[2021-07-14] MEDS: DIVALPROEX ER 500 MG TAB.ER.24H PO SCH (21:11)
--- NOTE | 2021-07-14 21:53 | PDOC ---
Exam Note: Bj Note: Please also refer to the separate dictated note~for this date of service dictated separately.~Patient seen individually. Discussed the patient with Nursing staff reviewed the chart.~Reviewed interim history and current functioning. Reviewed vital signs,~Labs/ Radiology~and current medications noted below. Continue current treatment with the changes noted in the dictated addendum note Assessment: Vital Signs/I&O: Vital Signs Date Time Temp Pulse Resp B/P (MAP) Pulse Ox O2 Delivery O2 Flow Rate FiO2 07/14/21 15:53 97.1 72 16 103/70 (81) 100 07/13/21 16:55 Room Air I & O 07/13/21 07/13/21 07/14/21 15:00 23:00 07:00 Intake Total 360 ml 720 ml 240 ml Balance 360 ml 720 ml 240 ml Labs: Laboratory Tests Test 07/14/21 06:05 White Blood Count 6.9 x10^3/uL (4.0-11.0) Red Blood Count 4.40 x10^6/uL (4.30-5.70) Hemoglobin 12.4 g/dL (13.0-17.5) L Hematocrit 38.8 % (39.0-53.0) L Mean Corpuscular Volume 88 fL (79-100) Mean Corpuscular Hemoglobin 28 pg (25-35) Mean Corpuscular Hemoglobin Concent 32 g/dL (31-37) Red Cell Distribution Width 14.8 % (11.5-14.5) H Platelet Count 138 x10^3/uL (140-400) L Neutrophils (%) (Auto) 39 % (31-73) Lymphocytes (%) (Auto) 45 % (24-48) Monocytes (%) (Auto) 15 % (0-9) H Eosinophils (%) (Auto) 0 % (0-3) Basophils (%) (Auto) 0 % (0-3) Neutrophils # (Auto) 2.7 x10^3uL (1.8-7.7) Lymphocytes # (Auto) 3.1 x10^3/uL (1.0-4.8) Monocytes # (Auto) 1.0 x10^3/uL (0.0-1.1) Eosinophils # (Auto) 0.0 x10^3/uL (0.0-0.7) Basophils # (Auto) 0.0 x10^3/uL (0.0-0.2) Sodium Level 138 mmol/L (136-145) Potassium Level 4.6 mmol/L (3.5-5.1) Chloride Level 107 mmol/L (98-107) Carbon Dioxide Level 30 mmol/L (21-32) Anion Gap 1 (6-14) L Blood Urea Nitrogen 15 mg/dL (8-26) Creatinine 0.7 mg/dL (0.7-1.3) Estimated GFR (Cockcroft-Gault) 136.9 BUN/Creatinine Ratio 21 (6-20) H Glucose Level 90 mg/dL (70-99) Calcium Level 8.4 mg/dL (8.5-10.1) L Total Bilirubin 0.3 mg/dL (0.2-1.0) Aspartate Amino Transferase (AST) 15 U/L (15-37) Alanine Aminotransferase (ALT) 17 U/L (16-63) Alkaline Phosphatase 73 U/L (46-116) Total Protein 6.4 g/dL (6.4-8.2) Albumin 2.8 g/dL (3.4-5.0) L Albumin/Globulin Ratio 0.8 (1.0-1.7) L Current Medications: Meds: Laboratory Tests Test 07/14/21 06:05 White Blood Count 6.9 x10^3/uL Red Blood Count 4.40 x10^6/uL Hemoglobin 12.4 g/dL Hematocrit 38.8 % Mean Corpuscular Volume 88 fL Mean Corpuscular Hemoglobin 28 pg Mean Corpuscular Hemoglobin Concent 32 g/dL Red Cell Distribution Width 14.8 % Platelet Count 138 x10^3/uL Neutrophils (%) (Auto) 39 % Lymphocytes (%) (Auto) 45 % Monocytes (%) (Auto) 15 % Eosinophils (%) (Auto) 0 % Basophils (%) (Auto) 0 % Neutrophils # (Auto) 2.7 x10^3uL Lymphocytes # (Auto) 3.1 x10^3/uL Monocytes # (Auto) 1.0 x10^3/uL Eosinophils # (Auto) 0.0 x10^3/uL Basophils # (Auto) 0.0 x10^3/uL Sodium Level 138 mmol/L Potassium Level 4.6 mmol/L Chloride Level 107 mmol/L Carbon Dioxide Level 30 mmol/L Anion Gap 1 Blood Urea Nitrogen 15 mg/dL Creatinine 0.7 mg/dL Estimated GFR (Cockcroft-Gault) 136.9 BUN/Creatinine Ratio 21 Glucose Level 90 mg/dL Calcium Level 8.4 mg/dL Total Bilirubin 0.3 mg/dL Aspartate Amino Transf (AST/SGOT) 15 U/L Alanine Aminotransferase (ALT/SGPT) 17 U/L Alkaline Phosphatase 73 U/L Total Protein 6.4 g/dL Albumin 2.8 g/dL Albumin/Globulin Ratio 0.8 Current Medications Medications (Trade) Dose Ordered Sig/Reny Route PRN Reason Start Time Stop Time Status Last Admin Dose Admin Acetaminophen (Tylenol) 650 mg PRN Q6HRS PRN PO MILD PAIN / TEMP > 100.3'F 06/25/21 20:15 07/12/21 08:17 Multi-Ingredient Ointment (Analgesic [place]) 1 mikhail PRN QID PRN TP MUSCLE PAIN 06/25/21 20:15 07/05/21 21:53 Al Hydroxide/Mg Hydroxide (Mylanta Plus Xs) 15 ml PRN AFTMEALHC PRN PO DYSPEPSIA 06/25/21 20:15 Magnesium Hydroxide (Milk Of Magnesia) 2,400 mg PRN QHS PRN PO CONSTIPATION 06/25/21 20:15 07/05/21 20:27 Nicotine (Nicoderm Cq 14mg Patch) 1 patch DAILY TD 06/25/21 21:00 07/14/21 08:09 Benztropine Mesylate (Cogentin) 1 mg BID PO 06/26/21 22:00 07/14/21 21:10 Bupropion HCl (Wellbutrin Xl) 150 mg DAILY PO 06/26/21 09:00 07/07/21 02:18 DC 07/06/21 08:57 Divalproex Sodium (Depakote Er) 500 mg HS PO 06/26/21 21:00 06/27/21 18:00 DC 06/26/21 20:47 Donepezil HCl (Aricept) 10 mg DAILY PO 06/26/21 09:00 07/14/21 08:08 Memantine (Namenda) 5 mg DAILY PO 06/26/21 09:00 07/14/21 08:08 Mirtazapine (Remeron) 7.5 mg QHS PO 06/26/21 21:00 07/05/21 23:55 DC 07/05/21 20:27 Paliperidone Palmitate (Invega Sustenna) 156 mg QMONTH IM 07/25/21 09:00 Risperidone (RisperDAL) 0.25 mg PRN DAILY PRN PO agitation 06/25/21 22:00 07/03/21 12:22 Trazodone HCl (Desyrel) 50 mg QHS PO 06/26/21 21:00 07/14/21 21:11 Fluphenazine HCl (Prolixin Oral Conc) 1 mg PRN BID PRN PO psychosis 06/25/21 22:15 07/02/21 13:26 Ondansetron HCl (Zofran Odt) 4 mg PRN Q6HRS PRN PO NAUSEA/VOMITING 06/26/21 14:00 07/05/21 05:50 Amlodipine Besylate (Norvasc) 2.5 mg DAILY PO 06/28/21 09:00 07/14/21 08:08 Atorvastatin Calcium (Lipitor) 10 mg QHS PO 06/27/21 21:00 07/14/21 21:11 Triamcinolone Acetonide (Kenalog) 1 mikhail PRN DAILY PRN TP rash in armpits 06/27/21 10:45 Artificial Tears (Refresh Classic) 1 drop QIDPRN PRN OU DRY EYE 06/27/21 11:00 07/02/21 07:58 Non-Formulary Medication (Carboxymethylcellulose Sodium (Lubricant Eye Drops)) 15 ml QID OP 06/27/21 13:00 06/27/21 10:50 DC Clobetasol Propionate 1 mikhail PRN BID PRN TP RASH 06/27/21 21:00 06/29/21 07:50 DC Pantoprazole Sodium (Protonix) 40 mg DAILY07 PO 06/28/21 07:00 07/14/21 08:08 Divalproex Sodium (Depakote Er) 1,000 mg HS PO 06/27/21 21:00 07/14/21 21:11 Penicillin G Benzathine (Bicillin L-A) 2,400,000 unit WEEKLY IM 06/29/21 09:00 07/13/21 09:01 DC 07/13/21 11:37 Lactobacillus Rhamnosus (Culturelle) 1 cap BID PO 06/30/21 09:00 07/14/21 21:10 Risperidone (RisperDAL) 0.5 mg DAILY PO 06/30/21 17:15 07/01/21 16:59 DC 07/01/21 07:46 Risperidone (RisperDAL) 0.5 mg 0900,1700 PO 07/01/21 17:00 07/02/21 02:36 DC 07/01/21 17:30 Risperidone (RisperDAL) 1 mg 0900,1700 PO 07/02/21 09:00 07/14/21 17:12 Trazodone HCl (Desyrel) 25 mg 0900,1300,1700 PO 07/03/21 09:00 07/14/21 17:12 Trazodone HCl (Desyrel) 50 mg 1X ONCE PO 07/02/21 17:15 07/02/21 17:16 DC 07/02/21 17:29 Mirtazapine (Remeron) 7.5 mg QHS PO 07/06/21 21:00 07/14/21 21:11 Fluvoxamine Maleate (Luvox) 25 mg DAILY PO 07/07/21 09:00 07/09/21 12:00 DC 07/09/21 08:18 Fluvoxamine Maleate (Luvox) 50 mg DAILY PO 07/10/21 09:00 07/12/21 12:00 DC 07/12/21 08:19 Fluvoxamine Maleate (Luvox) 75 mg DAILY PO 07/13/21 09:00 07/14/21 08:09 I have reviewed the current psychotropics carefully including drug interactions. Risk benefit ratio favors no change other than as noted in my dictated progress note. Diagnosis: Problems: (1) Schizoaffective disorder, bipolar type (2) Impulse control disorder, unspecified (3) Anxiety disorder, unspecified (4) Bipolar disorder, current episode mixed, severe, with psychotic features (5) Major neurocognitive disorder JOHANNE LEONARDO MD Jul 14, 2021 21:53
[2021-07-15 06:30] VITALS: BP 114/73
[2021-07-15] MEDS: PANTOPRAZOLE 40 MG TABLET. PO SCH (06:32)
[2021-07-15] MEDS: MEMANTINE 5 MG TABLET. PO SCH (08:33)
[2021-07-15] MEDS: BENZTROPINE MESYLATE 1 MG TABLET PO SCH ×2 (08:34→20:29)
[2021-07-15] MEDS: DONEPEZIL HCL 10 MG TABLET PO SCH (08:34)
[2021-07-15] MEDS: amLODIPine BESYLATE 5 MG TABLET PO SCH (08:34)
[2021-07-15] MEDS: traZODone 50 MG TABLET. PO SCH ×4 (08:34→20:34)
[2021-07-15] MEDS: LACTOBACILLUS RHAMNOSUS GG 1 CAPSULE. PO SCH ×2 (08:35→20:30)
[2021-07-15] MEDS: NICOTINE 14MG PATCH. TD SCH (08:35)
[2021-07-15] MEDS: risperiDONE 0.5 MG TABLET. PO SCH ×2 (08:35→17:07)
--- NOTE | 2021-07-15 08:39 | PDOC ---
Exam Note: Bj Note: This note is a late entry for 07/14/2021 covers elements not covered in my initial note. Subjective: The patient was seen individually on 07/14/2021, discussed and reviewed the chart with Kirsten SUAZO. The patient slept 7-1/2 hours previous night. I met with him in his room. He has been pleasant, cooperative as I met with him, not yelling or screaming. Review of Systems: Hard of hearing. No CV, , pulmonary, eye system symptoms on review. Mental Status Exam: Patient is oriented to himself and situation. Speech has some latency coherent. Abstraction fair. Computation impaired. Language function intact. Attention span short. Mood and affect withdrawn. Laboratory Data: Reviewed. Impression: Schizoaffective disorder, bipolar type, mixed with psychotic features. Mild cognitive impairment versus major neurocognitive disorder, unspecified. Anxiety disorder unspecified. Impulse control disorder unspecified. Plan: Continue psychotropics from initial note. Reviewed drug interactions and risk benefit ratio. Tentative discharge back to custodial this . Assessment: Vital Signs/I&O: Vital Signs Date Time Temp Pulse Resp B/P (MAP) Pulse Ox O2 Delivery O2 Flow Rate FiO2 07/15/21 08:34 65 114/73 07/15/21 06:30 97.8 20 100 Room Air I & O 07/14/21 07/14/21 07/15/21 15:00 23:00 07:00 Intake Total 480 ml 600 ml Balance 480 ml 600 ml Current Medications: I have reviewed the current psychotropics carefully including drug interactions. Risk benefit ratio favors no change other than as noted in my dictated progress note. Diagnosis: Problems: (1) Schizoaffective disorder, bipolar type (2) Impulse control disorder, unspecified (3) Anxiety disorder, unspecified (4) Bipolar disorder, current episode mixed, severe, with psychotic features (5) Major neurocognitive disorder (6) Mild cognitive impairment JOHANNE LEONARDO MD Jul 15, 2021 08:39
[2021-07-15 16:08] VITALS: BP 116/76
[2021-07-15] MEDS: MIRTAZAPINE 7.5 MG TABLET. PO SCH (20:30)
[2021-07-15] MEDS: DIVALPROEX ER 500 MG TAB.ER.24H PO SCH (20:33)
[2021-07-15] MEDS: ATORVASTATIN CALCIUM 10 MG TABLET. PO SCH (20:34)
--- NOTE | 2021-07-15 21:33 | PDOC ---
Exam Note: Bj Note: Please also refer to the separate dictated note~for this date of service dictated separately.~Patient seen individually. Discussed the patient with Nursing staff reviewed the chart.~Reviewed interim history and current functioning. Reviewed vital signs,~Labs/ Radiology~and current medications noted below. Continue current treatment with the changes noted in the dictated addendum note Assessment: Vital Signs/I&O: Vital Signs Date Time Temp Pulse Resp B/P (MAP) Pulse Ox O2 Delivery O2 Flow Rate FiO2 07/15/21 16:08 98.0 73 16 116/76 (89) 99 07/15/21 06:30 Room Air I & O 07/14/21 07/14/21 07/15/21 15:00 23:00 07:00 Intake Total 480 ml 600 ml Balance 480 ml 600 ml Labs: Laboratory Tests Test 07/15/21 06:38 POC SARS CoV-2 Antigen Negative (NEGATIVE) Current Medications: Meds: Laboratory Tests Test 07/15/21 06:38 POC SARS CoV-2 Antigen Negative Current Medications Medications (Trade) Dose Ordered Sig/Reny Route PRN Reason Start Time Stop Time Status Last Admin Dose Admin Acetaminophen (Tylenol) 650 mg PRN Q6HRS PRN PO MILD PAIN / TEMP > 100.3'F 06/25/21 20:15 07/12/21 08:17 Multi-Ingredient Ointment (Analgesic [place]) 1 mikhail PRN QID PRN TP MUSCLE PAIN 06/25/21 20:15 07/05/21 21:53 Al Hydroxide/Mg Hydroxide (Mylanta Plus Xs) 15 ml PRN AFTMEALHC PRN PO DYSPEPSIA 06/25/21 20:15 Magnesium Hydroxide (Milk Of Magnesia) 2,400 mg PRN QHS PRN PO CONSTIPATION 06/25/21 20:15 07/05/21 20:27 Nicotine (Nicoderm Cq 14mg Patch) 1 patch DAILY TD 06/25/21 21:00 07/15/21 08:35 Benztropine Mesylate (Cogentin) 1 mg BID PO 06/26/21 22:00 07/15/21 20:29 Bupropion HCl (Wellbutrin Xl) 150 mg DAILY PO 06/26/21 09:00 07/07/21 02:18 DC 07/06/21 08:57 Divalproex Sodium (Depakote Er) 500 mg HS PO 06/26/21 21:00 06/27/21 18:00 DC 06/26/21 20:47 Donepezil HCl (Aricept) 10 mg DAILY PO 06/26/21 09:00 07/15/21 08:34 Memantine (Namenda) 5 mg DAILY PO 06/26/21 09:00 07/15/21 08:33 Mirtazapine (Remeron) 7.5 mg QHS PO 06/26/21 21:00 07/05/21 23:55 DC 07/05/21 20:27 Paliperidone Palmitate (Invega Sustenna) 156 mg QMONTH IM 07/25/21 09:00 Risperidone (RisperDAL) 0.25 mg PRN DAILY PRN PO agitation 06/25/21 22:00 07/03/21 12:22 Trazodone HCl (Desyrel) 50 mg QHS PO 06/26/21 21:00 07/15/21 20:34 Fluphenazine HCl (Prolixin Oral Conc) 1 mg PRN BID PRN PO psychosis 06/25/21 22:15 07/02/21 13:26 Ondansetron HCl (Zofran Odt) 4 mg PRN Q6HRS PRN PO NAUSEA/VOMITING 06/26/21 14:00 07/05/21 05:50 Amlodipine Besylate (Norvasc) 2.5 mg DAILY PO 06/28/21 09:00 07/15/21 08:34 Atorvastatin Calcium (Lipitor) 10 mg QHS PO 06/27/21 21:00 07/15/21 20:34 Triamcinolone Acetonide (Kenalog) 1 mikhail PRN DAILY PRN TP rash in armpits 06/27/21 10:45 Artificial Tears (Refresh Classic) 1 drop QIDPRN PRN OU DRY EYE 06/27/21 11:00 07/02/21 07:58 Non-Formulary Medication (Carboxymethylcellulose Sodium (Lubricant Eye Drops)) 15 ml QID OP 06/27/21 13:00 06/27/21 10:50 DC Clobetasol Propionate 1 mikhail PRN BID PRN TP RASH 06/27/21 21:00 06/29/21 07:50 DC Pantoprazole Sodium (Protonix) 40 mg DAILY07 PO 06/28/21 07:00 07/15/21 06:32 Divalproex Sodium (Depakote Er) 1,000 mg HS PO 06/27/21 21:00 07/15/21 20:33 Penicillin G Benzathine (Bicillin L-A) 2,400,000 unit WEEKLY IM 06/29/21 09:00 07/13/21 09:01 DC 07/13/21 11:37 Lactobacillus Rhamnosus (Culturelle) 1 cap BID PO 06/30/21 09:00 07/15/21 20:30 Risperidone (RisperDAL) 0.5 mg DAILY PO 06/30/21 17:15 07/01/21 16:59 DC 07/01/21 07:46 Risperidone (RisperDAL) 0.5 mg 0900,1700 PO 07/01/21 17:00 07/02/21 02:36 DC 07/01/21 17:30 Risperidone (RisperDAL) 1 mg 0900,1700 PO 07/02/21 09:00 07/15/21 17:07 Trazodone HCl (Desyrel) 25 mg 0900,1300,1700 PO 07/03/21 09:00 07/15/21 17:07 Trazodone HCl (Desyrel) 50 mg 1X ONCE PO 07/02/21 17:15 07/02/21 17:16 DC 07/02/21 17:29 Mirtazapine (Remeron) 7.5 mg QHS PO 07/06/21 21:00 07/15/21 20:30 Fluvoxamine Maleate (Luvox) 25 mg DAILY PO 07/07/21 09:00 07/09/21 12:00 DC 07/09/21 08:18 Fluvoxamine Maleate (Luvox) 50 mg DAILY PO 07/10/21 09:00 07/12/21 12:00 DC 07/12/21 08:19 Fluvoxamine Maleate (Luvox) 75 mg DAILY PO 07/13/21 09:00 07/15/21 08:34 I have reviewed the current psychotropics carefully including drug interactions. Risk benefit ratio favors no change other than as noted in my dictated progress note. Diagnosis: Problems: (1) Schizoaffective disorder, bipolar type (2) Impulse control disorder, unspecified (3) Anxiety disorder, unspecified (4) Bipolar disorder, current episode mixed, severe, with psychotic features (5) Major neurocognitive disorder (6) Mild cognitive impairment JOHANNE LEONARDO MD Jul 15, 2021 21:33
[2021-07-16 06:04] VITALS: BP 100/68
[2021-07-16] MEDS: PANTOPRAZOLE 40 MG TABLET. PO SCH (06:39)
--- NOTE | 2021-07-16 08:44 | PDOC ---
Exam Note: Bj Note: This note is a late entry for 07/15/2021 covers elements not covered in my initial note. Subjective: The patient was seen individually on 07/15/2021, discussed and reviewed the chart with Ophelia SUAZO. The patient slept 7-1/2 hours previous night. I met with him in the evening in his room. He has been fairly quiet, isolative in his room. Platelets are trending downwards. We will monitor these. He has been obsessed about social security payments today. Review of Systems: Hard of hearing. No CV, , pulmonary, eye system symptoms on review. Mental Status Exam: Patient is alert and oriented. He is pleasant, verbal, smiling as I met with him, obsessing about discharge plans and I addressed with him. Speech often response is monosyllabic. He was otherwise courteous. Abstraction fair. Computation impaired. Language function intact. Mood and affect remains somewhat anxious, slightly obsessive but improved. Laboratory Data: Reviewed. Impression: Schizoaffective disorder, bipolar type, mixed with psychotic features. Mild cognitive impairment versus major neurocognitive disorder, unspecified. Anxiety disorder unspecified. Impulse control disorder unspecified. Plan: Continue psychotropics from initial note. Reviewed drug interactions and risk benefit ratio. Assessment: Vital Signs/I&O: Vital Signs Date Time Temp Pulse Resp B/P (MAP) Pulse Ox O2 Delivery O2 Flow Rate FiO2 07/16/21 06:04 97.5 63 16 100/68 (79) 99 Room Air I & O 07/15/21 07/15/21 07/16/21 15:00 23:00 07:00 Intake Total 680 ml 720 ml Balance 680 ml 720 ml Current Medications: I have reviewed the current psychotropics carefully including drug interactions. Risk benefit ratio favors no change other than as noted in my dictated progress note. Diagnosis: Problems: (1) Schizoaffective disorder, bipolar type (2) Impulse control disorder, unspecified (3) Anxiety disorder, unspecified (4) Bipolar disorder, current episode mixed, severe, with psychotic features (5) Major neurocognitive disorder (6) Mild cognitive impairment JOHANNE LEONARDO MD Jul 16, 2021 08:44
[2021-07-16] MEDS: amLODIPine BESYLATE 5 MG TABLET PO SCH (08:51)
[2021-07-16] MEDS: traZODone 50 MG TABLET. PO SCH ×4 (08:51→21:32)
[2021-07-16] MEDS: MEMANTINE 5 MG TABLET. PO SCH (08:51)
[2021-07-16] MEDS: BENZTROPINE MESYLATE 1 MG TABLET PO SCH ×2 (08:52→21:32)
[2021-07-16] MEDS: risperiDONE 0.5 MG TABLET. PO SCH ×2 (08:52→17:29)
[2021-07-16] MEDS: DONEPEZIL HCL 10 MG TABLET PO SCH (08:52)
[2021-07-16] MEDS: LACTOBACILLUS RHAMNOSUS GG 1 CAPSULE. PO SCH ×2 (08:52→21:32)
[2021-07-16] MEDS: NICOTINE 14MG PATCH. TD SCH (08:52)
[2021-07-16 16:16] VITALS: BP 128/81
[2021-07-16] MEDS: MIRTAZAPINE 7.5 MG TABLET. PO SCH (21:32)
[2021-07-16] MEDS: DIVALPROEX ER 500 MG TAB.ER.24H PO SCH (21:32)
[2021-07-16] MEDS: ATORVASTATIN CALCIUM 10 MG TABLET. PO SCH (21:32)
--- NOTE | 2021-07-16 21:41 | PDOC ---
Exam Note: Bj Note: Please also refer to the separate dictated note~for this date of service dictated separately.~Patient seen individually. Discussed the patient with Nursing staff reviewed the chart.~Reviewed interim history and current functioning. Reviewed vital signs,~Labs/ Radiology~and current medications noted below. Continue current treatment with the changes noted in the dictated addendum note Assessment: Vital Signs/I&O: Vital Signs Date Time Temp Pulse Resp B/P (MAP) Pulse Ox O2 Delivery O2 Flow Rate FiO2 07/16/21 16:16 97.9 66 18 128/81 (97) 99 07/16/21 06:04 Room Air I & O 07/15/21 07/15/21 07/16/21 15:00 23:00 07:00 Intake Total 680 ml 720 ml Balance 680 ml 720 ml Current Medications: Meds: Current Medications Medications (Trade) Dose Ordered Sig/Reny Route PRN Reason Start Time Stop Time Status Last Admin Dose Admin Acetaminophen (Tylenol) 650 mg PRN Q6HRS PRN PO MILD PAIN / TEMP > 100.3'F 06/25/21 20:15 07/12/21 08:17 Multi-Ingredient Ointment (Analgesic [place]) 1 mikhail PRN QID PRN TP MUSCLE PAIN 06/25/21 20:15 07/05/21 21:53 Al Hydroxide/Mg Hydroxide (Mylanta Plus Xs) 15 ml PRN AFTMEALHC PRN PO DYSPEPSIA 06/25/21 20:15 Magnesium Hydroxide (Milk Of Magnesia) 2,400 mg PRN QHS PRN PO CONSTIPATION 06/25/21 20:15 07/05/21 20:27 Nicotine (Nicoderm Cq 14mg Patch) 1 patch DAILY TD 06/25/21 21:00 07/16/21 08:52 Benztropine Mesylate (Cogentin) 1 mg BID PO 06/26/21 22:00 07/16/21 21:32 Bupropion HCl (Wellbutrin Xl) 150 mg DAILY PO 06/26/21 09:00 07/07/21 02:18 DC 07/06/21 08:57 Divalproex Sodium (Depakote Er) 500 mg HS PO 06/26/21 21:00 06/27/21 18:00 DC 06/26/21 20:47 Donepezil HCl (Aricept) 10 mg DAILY PO 06/26/21 09:00 07/16/21 08:52 Memantine (Namenda) 5 mg DAILY PO 06/26/21 09:00 07/16/21 08:51 Mirtazapine (Remeron) 7.5 mg QHS PO 06/26/21 21:00 07/05/21 23:55 DC 07/05/21 20:27 Paliperidone Palmitate (Invega Sustenna) 156 mg QMONTH IM 07/25/21 09:00 Risperidone (RisperDAL) 0.25 mg PRN DAILY PRN PO agitation 06/25/21 22:00 07/03/21 12:22 Trazodone HCl (Desyrel) 50 mg QHS PO 06/26/21 21:00 07/16/21 21:32 Fluphenazine HCl (Prolixin Oral Conc) 1 mg PRN BID PRN PO psychosis 06/25/21 22:15 07/02/21 13:26 Ondansetron HCl (Zofran Odt) 4 mg PRN Q6HRS PRN PO NAUSEA/VOMITING 06/26/21 14:00 07/05/21 05:50 Amlodipine Besylate (Norvasc) 2.5 mg DAILY PO 06/28/21 09:00 07/16/21 08:51 Atorvastatin Calcium (Lipitor) 10 mg QHS PO 06/27/21 21:00 07/16/21 21:32 Triamcinolone Acetonide (Kenalog) 1 mikhail PRN DAILY PRN TP rash in armpits 06/27/21 10:45 Artificial Tears (Refresh Classic) 1 drop QIDPRN PRN OU DRY EYE 06/27/21 11:00 07/02/21 07:58 Non-Formulary Medication (Carboxymethylcellulose Sodium (Lubricant Eye Drops)) 15 ml QID OP 06/27/21 13:00 06/27/21 10:50 DC Clobetasol Propionate 1 mikhail PRN BID PRN TP RASH 06/27/21 21:00 06/29/21 07:50 DC Pantoprazole Sodium (Protonix) 40 mg DAILY07 PO 06/28/21 07:00 07/16/21 06:39 Divalproex Sodium (Depakote Er) 1,000 mg HS PO 06/27/21 21:00 07/16/21 21:32 Penicillin G Benzathine (Bicillin L-A) 2,400,000 unit WEEKLY IM 06/29/21 09:00 07/13/21 09:01 DC 07/13/21 11:37 Lactobacillus Rhamnosus (Culturelle) 1 cap BID PO 06/30/21 09:00 07/16/21 21:32 Risperidone (RisperDAL) 0.5 mg DAILY PO 06/30/21 17:15 07/01/21 16:59 DC 07/01/21 07:46 Risperidone (RisperDAL) 0.5 mg 0900,1700 PO 07/01/21 17:00 07/02/21 02:36 DC 07/01/21 17:30 Risperidone (RisperDAL) 1 mg 0900,1700 PO 07/02/21 09:00 07/16/21 17:29 Trazodone HCl (Desyrel) 25 mg 0900,1300,1700 PO 07/03/21 09:00 07/16/21 17:29 Trazodone HCl (Desyrel) 50 mg 1X ONCE PO 07/02/21 17:15 07/02/21 17:16 DC 07/02/21 17:29 Mirtazapine (Remeron) 7.5 mg QHS PO 07/06/21 21:00 07/16/21 21:32 Fluvoxamine Maleate (Luvox) 25 mg DAILY PO 07/07/21 09:00 07/09/21 12:00 DC 07/09/21 08:18 Fluvoxamine Maleate (Luvox) 50 mg DAILY PO 07/10/21 09:00 07/12/21 12:00 DC 07/12/21 08:19 Fluvoxamine Maleate (Luvox) 75 mg DAILY PO 07/13/21 09:00 07/16/21 17:16 DC 07/16/21 08:51 Fluvoxamine Maleate (Luvox) 100 mg DAILY PO 07/17/21 09:00 I have reviewed the current psychotropics carefully including drug interactions. Risk benefit ratio favors no change other than as noted in my dictated progress note. Diagnosis: Problems: (1) Schizoaffective disorder, bipolar type (2) Impulse control disorder, unspecified (3) Anxiety disorder, unspecified (4) Bipolar disorder, current episode mixed, severe, with psychotic features (5) Major neurocognitive disorder (6) Mild cognitive impairment JOHANNE LEONARDO MD Jul 16, 2021 21:41
[2021-07-17] MEDS ORDERED: TRAZ-120 PO (00:20)
[2021-07-17] MEDS ORDERED: TROL86CR TP (00:26)
[2021-07-17] MEDS ORDERED: METH114C3 TP (00:28)
[2021-07-17] MEDS ORDERED: ACET325T21 PO (00:29)
[2021-07-17] MEDS ORDERED: NICO1PAT25 TP (00:31)
[2021-07-17] MEDS ORDERED: FLUV100T17 PO (00:35)
[2021-07-17] MEDS ORDERED: RISP1TAB88 PO (00:36)
[2021-07-17] MEDS ORDERED: MAG30ORA2 PO (00:47)
[2021-07-17] MEDS ORDERED: MAGN400O7 PO (00:50)
[2021-07-17] MEDS ORDERED: LACT1CAP21 PO (00:56)
[2021-07-17] MEDS ORDERED: ONDA4TAB12 PO (00:58)
[2021-07-17] MEDS: PANTOPRAZOLE 40 MG TABLET. PO SCH (05:49)
[2021-07-17 06:13] VITALS: BP 128/84
[2021-07-17] MEDS: LACTOBACILLUS RHAMNOSUS GG 1 CAPSULE. PO SCH (08:01)
[2021-07-17] MEDS: traZODone 50 MG TABLET. PO SCH (08:01)
[2021-07-17] MEDS: MEMANTINE 5 MG TABLET. PO SCH (08:01)
[2021-07-17 08:02] VITALS: BP 128/84
[2021-07-17] MEDS: DONEPEZIL HCL 10 MG TABLET PO SCH (08:02)
[2021-07-17] MEDS: amLODIPine BESYLATE 5 MG TABLET PO SCH (08:02)
[2021-07-17] MEDS: BENZTROPINE MESYLATE 1 MG TABLET PO SCH (08:02)
[2021-07-17] MEDS: NICOTINE 14MG PATCH. TD SCH (08:02)
[2021-07-17] MEDS: risperiDONE 0.5 MG TABLET. PO SCH (08:02)
--- NOTE | 2021-07-17 08:30 | PDOC ---
Exam Note: Bj Note: This note is a late entry for 07/16/2021 covers elements not covered in my initial note. Subjective: The patient was seen individually on 07/16/2021, discussed and reviewed the chart with Kirsten SUAZO. The patient slept 7 hours previous night. He has had a difficult day today. He threw his blankets at the nursing staff, somewhat obsessed about social security benefits, wanting to go to the office, obsessing about discharge plans. I met with him in his room. Review of Systems: Hard of hearing. I had to talk very loudly into his ear. No CV, , pulmonary, eye system symptoms on review. Mental Status Exam: Patient is awake, alert and oriented. Speech coherent, has some latency. Abstraction fair. Computation impaired. Language function intact. He is still somewhat obsessive but improved. Mood and affect remains obsessive but improved. Laboratory Data: Reviewed. Impression: Schizoaffective disorder, bipolar type, mixed with psychotic features. Mild cognitive impairment versus major neurocognitive disorder, unspecified. Anxiety disorder unspecified. Impulse control disorder unspecified. Plan: Continue psychotropics from initial note. Reviewed drug interactions and risk benefit ratio. Increase Luvox from 75 mg a day to 100 mg a day. Transition to the shelter in the next day or so. Assessment: Vital Signs/I&O: Vital Signs Date Time Temp Pulse Resp B/P (MAP) Pulse Ox O2 Delivery O2 Flow Rate FiO2 07/17/21 08:02 77 128/84 07/17/21 06:13 97.7 20 96 07/16/21 06:04 Room Air I & O 07/16/21 07/16/21 07/17/21 15:00 23:00 07:00 Intake Total 580 ml 480 ml Balance 580 ml 480 ml Current Medications: Meds: Current Medications Medications (Trade) Dose Ordered Sig/Reny Route PRN Reason Start Time Stop Time Status Last Admin Dose Admin Fluvoxamine Maleate (Luvox) 100 mg DAILY PO 07/17/21 09:00 07/17/21 08:02 I have reviewed the current psychotropics carefully including drug interactions. Risk benefit ratio favors no change other than as noted in my dictated progress note. Diagnosis: Problems: (1) Schizoaffective disorder, bipolar type (2) Impulse control disorder, unspecified (3) Anxiety disorder, unspecified (4) Bipolar disorder, current episode mixed, severe, with psychotic features (5) Major neurocognitive disorder (6) Mild cognitive impairment JOHANNE LEONARDO MD Jul 17, 2021 08:30
--- NOTE | 2021-07-17 21:33 | PDOC ---
Exam Note: Bj Note: Please also refer to the separate dictated note~for this date of service dictated separately.~Patient seen individually. Discussed the patient with Nursing staff reviewed the chart.~Reviewed interim history and current functioning. Reviewed vital signs,~Labs/ Radiology~and current medications noted below. Continue current treatment with the changes noted in the dictated addendum note Assessment: Vital Signs/I&O: Vital Signs Date Time Temp Pulse Resp B/P (MAP) Pulse Ox O2 Delivery O2 Flow Rate FiO2 07/17/21 08:02 77 128/84 07/17/21 06:13 97.7 20 96 07/16/21 06:04 Room Air I & O 07/16/21 07/16/21 07/17/21 15:00 23:00 07:00 Intake Total 580 ml 480 ml Balance 580 ml 480 ml Current Medications: Meds: Current Medications Medications (Trade) Dose Ordered Sig/Reny Route PRN Reason Start Time Stop Time Status Last Admin Dose Admin Acetaminophen (Tylenol) 650 mg PRN Q6HRS PRN PO MILD PAIN / TEMP > 100.3'F 06/25/21 20:15 07/17/21 10:22 DC 07/12/21 08:17 Multi-Ingredient Ointment (Analgesic [place]) 1 mikhail PRN QID PRN TP MUSCLE PAIN 06/25/21 20:15 07/17/21 10:22 DC 07/05/21 21:53 Al Hydroxide/Mg Hydroxide (Mylanta Plus Xs) 15 ml PRN AFTMEALHC PRN PO DYSPEPSIA 06/25/21 20:15 07/17/21 10:22 DC Magnesium Hydroxide (Milk Of Magnesia) 2,400 mg PRN QHS PRN PO CONSTIPATION 06/25/21 20:15 07/17/21 10:22 DC 07/05/21 20:27 Nicotine (Nicoderm Cq 14mg Patch) 1 patch DAILY TD 06/25/21 21:00 07/17/21 10:22 DC 07/17/21 08:02 Benztropine Mesylate (Cogentin) 1 mg BID PO 06/26/21 22:00 07/17/21 10:23 DC 07/17/21 08:02 Bupropion HCl (Wellbutrin Xl) 150 mg DAILY PO 06/26/21 09:00 07/07/21 02:18 DC 07/06/21 08:57 Divalproex Sodium (Depakote Er) 500 mg HS PO 06/26/21 21:00 06/27/21 18:00 DC 06/26/21 20:47 Donepezil HCl (Aricept) 10 mg DAILY PO 06/26/21 09:00 07/17/21 10:23 DC 07/17/21 08:02 Memantine (Namenda) 5 mg DAILY PO 06/26/21 09:00 07/17/21 10:23 DC 07/17/21 08:01 Mirtazapine (Remeron) 7.5 mg QHS PO 06/26/21 21:00 07/05/21 23:55 DC 07/05/21 20:27 Paliperidone Palmitate (Invega Sustenna) 156 mg QMONTH IM 07/25/21 09:00 07/17/21 10:23 DC Risperidone (RisperDAL) 0.25 mg PRN DAILY PRN PO agitation 06/25/21 22:00 07/17/21 10:23 DC 07/03/21 12:22 Trazodone HCl (Desyrel) 50 mg QHS PO 06/26/21 21:00 07/17/21 10:23 DC 07/16/21 21:32 Fluphenazine HCl (Prolixin Oral Conc) 1 mg PRN BID PRN PO psychosis 06/25/21 22:15 07/17/21 10:23 DC 07/02/21 13:26 Ondansetron HCl (Zofran Odt) 4 mg PRN Q6HRS PRN PO NAUSEA/VOMITING 06/26/21 14:00 07/17/21 10:23 DC 07/05/21 05:50 Amlodipine Besylate (Norvasc) 2.5 mg DAILY PO 06/28/21 09:00 07/17/21 10:23 DC 07/17/21 08:02 Atorvastatin Calcium (Lipitor) 10 mg QHS PO 06/27/21 21:00 07/17/21 10:23 DC 07/16/21 21:32 Triamcinolone Acetonide (Kenalog) 1 mikhail PRN DAILY PRN TP rash in armpits 06/27/21 10:45 07/17/21 10:23 DC Artificial Tears (Refresh Classic) 1 drop QIDPRN PRN OU DRY EYE 06/27/21 11:00 07/17/21 10:23 DC 07/02/21 07:58 Non-Formulary Medication (Carboxymethylcellulose Sodium (Lubricant Eye Drops)) 15 ml QID OP 06/27/21 13:00 06/27/21 10:50 DC Clobetasol Propionate 1 mikhail PRN BID PRN TP RASH 06/27/21 21:00 06/29/21 07:50 DC Pantoprazole Sodium (Protonix) 40 mg DAILY07 PO 06/28/21 07:00 07/17/21 10:23 DC 07/17/21 05:49 Divalproex Sodium (Depakote Er) 1,000 mg HS PO 06/27/21 21:00 07/17/21 10:23 DC 07/16/21 21:32 Penicillin G Benzathine (Bicillin L-A) 2,400,000 unit WEEKLY IM 06/29/21 09:00 07/13/21 09:01 DC 07/13/21 11:37 Lactobacillus Rhamnosus (Culturelle) 1 cap BID PO 06/30/21 09:00 07/17/21 10:23 DC 07/17/21 08:01 Risperidone (RisperDAL) 0.5 mg DAILY PO 06/30/21 17:15 07/01/21 16:59 DC 07/01/21 07:46 Risperidone (RisperDAL) 0.5 mg 0900,1700 PO 07/01/21 17:00 07/02/21 02:36 DC 07/01/21 17:30 Risperidone (RisperDAL) 1 mg 0900,1700 PO 07/02/21 09:00 07/17/21 10:23 DC 07/17/21 08:02 Trazodone HCl (Desyrel) 25 mg 0900,1300,1700 PO 07/03/21 09:00 07/17/21 10:23 DC 07/17/21 08:01 Trazodone HCl (Desyrel) 50 mg 1X ONCE PO 07/02/21 17:15 07/02/21 17:16 DC 07/02/21 17:29 Mirtazapine (Remeron) 7.5 mg QHS PO 07/06/21 21:00 07/17/21 10:23 DC 07/16/21 21:32 Fluvoxamine Maleate (Luvox) 25 mg DAILY PO 07/07/21 09:00 07/09/21 12:00 DC 07/09/21 08:18 Fluvoxamine Maleate (Luvox) 50 mg DAILY PO 07/10/21 09:00 07/12/21 12:00 DC 07/12/21 08:19 Fluvoxamine Maleate (Luvox) 75 mg DAILY PO 07/13/21 09:00 07/16/21 17:16 DC 07/16/21 08:51 Fluvoxamine Maleate (Luvox) 100 mg DAILY PO 07/17/21 09:00 07/17/21 10:23 DC 07/17/21 08:02 Current Medications Medications (Trade) Dose Ordered Sig/Reny Route PRN Reason Start Time Stop Time Status Last Admin Dose Admin Fluvoxamine Maleate (Luvox) 100 mg DAILY PO 07/17/21 09:00 07/17/21 10:23 DC 07/17/21 08:02 I have reviewed the current psychotropics carefully including drug interactions. Risk benefit ratio favors no change other than as noted in my dictated progress note. Diagnosis: Problems: (1) Schizoaffective disorder, bipolar type (2) Impulse control disorder, unspecified (3) Anxiety disorder, unspecified (4) Bipolar disorder, current episode mixed, severe, with psychotic features (5) Major neurocognitive disorder (6) Mild cognitive impairment JOHANNE LEONARDO MD Jul 17, 2021 21:33
--- NOTE | 2021-07-17 23:17 | DS ---
DATE OF DISCHARGE: 07/17/2021 DISCHARGE SUMMARY/PSYCHIATRIC PROGRESS VISIT This note covers elements not covered in my initial note, 07/17/2021. REASON FOR ADMISSION: Please refer to the admission history for details. Briefly, the patient is a 66-year-old -[place] male referred to us from [facility] via the [facility] on account of an acute exacerbation of schizoaffective disorder, bipolar type and dementia, unspecified. The patient was aggressive with peers, increased confusion, paranoid, combative with staff and peers. He is extremely angry, attempting to elope, delusional about having AIDS and making verbal threats to staff. Behaviors were deemed dangerous, unmanageable resulting in this referral from the [place]. SIGNIFICANT FINDINGS AND CLINICAL COURSE: Following admission, the patient was seen daily individually by myself from a psychiatric standpoint, medical followup, Dr. Ann/Dr. Guerrier. Adjustments were made in his psychotropics and he seemed to respond to a combination of Cogentin 1 mg b.i.d., Aricept 10 mg a day, Prolixin 1 mg b.i.d. p.r.n. He remained on Invega Sustenna 156 mg IM monthly, Remeron 7.5 mg at bedtime, Risperdal 0.25 mg daily p.r.n., trazodone 50 mg at bedtime and 25 mg 0900, 1300 and 1700; Namenda 5 mg daily, Luvox 100 mg daily was started and adjusted for his marked OCD behaviors. He is also on Depakote ER 1000 mg at bedtime with a level therapeutic at 60, Risperdal 1 mg at 0900 and 1700. He was on 2 atypical antipsychotics, Invega Sustenna and oral Risperdal. Once he has been psychiatrically stable at the longterm for about 60 days, consideration may be given to gradually tapering the Risperdal, so that he is on only 1 atypical antipsychotic. Initially, following admission, he was extremely obsessive, angry, disruptive with marked mood lability. Gradually as psychotropic stabilized, he was much more compliant, appropriate, pleasant, smiling. Being hard of hearing did impair his communication, but he was able to compensate for this. FINAL DIAGNOSES: Schizoaffective disorder, bipolar type, mixed, with psychotic features, mild cognitive impairment, hard of hearing, anxiety disorder, unspecified; impulse control disorder, unspecified. Rest unchanged from admission. DISCHARGE MEDICATIONS: Please refer to the [facility]. DISCHARGE INSTRUCTIONS: Outpatient psychiatric and medical followup at the longterm. Time for discharge day management greater than [address]: Donis TID: [id number]
[2021-07-25] MEDS ORDERED: PALIPERIDONE PALMITATE 156 MG/ML IM SCH (09:00)
== END 2021-07-17 10:22 | DRG 885 ==
LOC: GEROPSY 20:02
PROVIDERS: ADMIT Psychiatry & Neurology Psychiatry; ATTEND Psychiatry & Neurology Psychiatry
DX: F25.0 Schizoaffective disorder, bipolar type (principal); F02.81 Dementia in other diseases classified elsewhere, unspecified severity, with behavioral disturbance; A53.9 Syphilis, unspecified; F41.9 Anxiety disorder, unspecified; F42.9 Obsessive-compulsive disorder, unspecified; F63.9 Impulse disorder, unspecified; G30.9 Alzheimer's disease, unspecified; G40.909 Epilepsy, unspecified, not intractable, without status epilepticus; I10 Essential (primary) hypertension; I73.9 Peripheral vascular disease, unspecified; J44.9 Chronic obstructive pulmonary disease, unspecified; M19.90 Unspecified osteoarthritis, unspecified site; Z21 Asymptomatic human immunodeficiency virus [HIV] infection status; Z66 Do not resuscitate; Z79.899 Other long term (current) drug therapy; Z86.73 Personal history of transient ischemic attack (TIA), and cerebral infarction without residual deficits; Z87.828 Personal history of other (healed) physical injury and trauma; Z87.891 Personal history of nicotine dependence; K21.9 Gastro-esophageal reflux disease without esophagitis; Z20.822 Contact with and (suspected) exposure to COVID-19; G47.33 Obstructive sleep apnea (adult) (pediatric); E66.9 Obesity, unspecified; Z68.22 Body mass index [BMI] 22.0-22.9, adult
CPT/HCPCS: 36415; 70450; 80053; 80061; 80164; 81001; 82306; 83036; 83540; 83550; 83735; 84436; 84443; 84480; 85025; 85379; 86592; 93005; J0561; Q0162; U0003; 73630-50; 97116; 97530